=== PATIENT | female | born 1980 | race Caucasian/White ===

== ENCOUNTER → 2020-03-02 17:35 | Outpatient (CLI) | payer BC, SELFPAY ==
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
== END ==
PROVIDERS: Visit Provider Nurse Practitioner Adult Health
DX: M54.6 Pain in thoracic spine (principal); M47.814 Spondylosis without myelopathy or radiculopathy, thoracic region
CPT/HCPCS: 72146

== ENCOUNTER → 2022-02-22 15:24 | Outpatient (CLI) | payer BC, SELFPAY ==
--- NOTE | ~2022-02-22 | MM_ITS ---
EXAMINATION: MM screening [facility] BI w shivani HISTORY: Screening TECHNIQUE: Craniocaudal and mediolateral oblique 3-D tomosynthesis images were obtained and synthetic 2-D images were generated. CAD analysis was submitted and interpreted. COMPARISON: 11/05/2016 BREAST PARENCHYMAL COMPOSITION: There are scattered areas of fibroglandular density. FINDINGS: Right breast asymmetry in the periareolar location is stable. There is no evidence of suspi cious mass, calcification, or architectural distortion to suggest malignancy in either breast. There has been no suspicious interval change. IMPRESSION: 1. No mammographic evidence of malignancy. 2. Recommend routine screening mammography in one year. BI-RADS Category 1: Negative Reviewed, dictated and finalized at location A. INSPECTOR
== END ==
PROVIDERS: PCP Physician Assistant; Visit Provider Physician Assistant
DX: Z12.31 Encounter for screening mammogram for malignant neoplasm of breast (principal)
CPT/HCPCS: 77063; 77067

== ENCOUNTER → 2023-02-11 09:17 | Outpatient (CLI) | payer BC, SELFPAY ==
--- NOTE | ~2023-02-11 | MMUS_ITS ---
EXAMINATION: MM diagnostic do BI w shivani, US breast LT limited HISTORY: Palpable lump at the 9:00 location of the left breast TECHNIQUE: Craniocaudal, mediolateral, and mediolateral oblique 3-D tomosynthesis images of the breas ts were performed and synthetic 2-D images were generated. CAD analysis was submitted and interpreted . High resolution limited left breast ultrasound was performed. COMPARISON: 02/22/2022, 11/05/2016 BREAST PARENCHYMAL COMPOSITION: There are scattered areas of fibroglandular density. FINDINGS: MAMMOGRAPHIC FINDINGS: Right breast: No suspicious mass, calcification, or architectural distortion are identified to sugges t malignancy. There has been no suspicious interval change. Left breast: There is an approximately 1.6 x 1.5 cm round, equal density mass with indistinct margins abutting the skin of the left breast in the region of palpable concern. No suspicious calcification or architectural distortion are identified. ULTRASOUND: There is a 1.8 x 0.8 cm oval, circumscribed, parallel, hypoechoic mass with posterior acoustic enhanc ement, and no internal vascularity, and probable skin tract and the left breast corresponding to the area of palpable concern. IMPRESSION: 1. Probable sebaceous cyst of the left breast corresponding to the area of palpable concern. Recommen d continued clinical follow-up with repeat ultrasound if finding does not resolve after appropriate t herapy. 2. Recommend routine screening mammography in one year. BI-RADS Category 2: Benign finding(s). Reviewed, dictated and finalized at location A. BINDER IMPRESSION: 1. Probable sebaceous cyst of the left breast corresponding to the area of palp able concern. Recommend continued clinical follow-up with repeat ultrasound if finding does not resolve after appropriate therapy. 2. Recommend routine screening mammography in one year. BI-RADS Category 2: Benign finding(s).
== END ==
PROVIDERS: PCP Obstetrics & Gynecology; Visit Provider Obstetrics & Gynecology
DX: N63.25 Unspecified lump in the left breast, overlapping quadrants (principal)
CPT/HCPCS: 76642; 77062; 77066; G0279

== ENCOUNTER → 2023-02-19 16:19 | Outpatient (REF) | payer BC, SELFPAY | LOC: ANHLAB 16:19 | PROVIDERS: PCP Obstetrics & Gynecology; Visit Provider Surgery | DX: L72.0 Epidermal cyst (principal); N63.20 Unspecified lump in the left breast, unspecified quadrant | CPT/HCPCS: 88305 ==

== ENCOUNTER 2023-06-13 07:44 | Outpatient (CLI) | payer BC, SELFPAY ==
--- NOTE | ~2023-06-13 | MR_ITS ---
MRI of the cervical spine Clinical History: Cervical pain Technique: Axial T2-weighted and gradient images, and sagittal T1-weighted, T2-weighted, and STIR magdy ges were acquired. Findings: There is mild reversal normal cervical lordosis. No fracture or subluxation seen. No suspic ious bone marrow signal abnormality seen. At C2-C3, there is no disc bulge or herniation. No spinal canal stenosis, cord compression, or neural foraminal narrowing. At C3-C4, there is no significant disc bulge or herniation. No spinal canal stenosis, cord compressio n, or definite neural foraminal narrowing. There is minimal facet arthropathy. At C4-C5, there is no significant disc bulge or herniation. There is no spinal canal stenosis, cord c ompression, or neural foraminal narrowing. There is minimal facet arthropathy bilaterally. At C5-C6, there is central disc osteophyte complex which minimally flattens the ventral cord. Bilater al neural foramina are preserved. At C6-C7, there is mild disc osteophyte complex which minimally flattens the ventral cord on the left side. Neural foramina are preserved. No abnormal signal seen in the spinal cord. Paravertebral soft tissues are unremarkable. Impression: Mild degenerative spondylosis, most notable at C5-C6 and C6-C7, where there is minimal flattening of the ventral cord. Reviewed, dictated and finalized at [facility]. Impression: Mild degenerative spondylosis, most notable at C5-C6 and C6-C7, where there is minimal flattening of the ventral cord.
== END 2023-06-13 07:45 ==
PROVIDERS: PCP Obstetrics & Gynecology; Visit Provider Chiropractor
DX: M47.892 Other spondylosis, cervical region (principal)
CPT/HCPCS: 72141

== ENCOUNTER 2023-09-18 13:20 | Outpatient (CLI) | payer BC, SELFPAY ==
--- NOTE | ~2023-09-18 | XR_ITS ---
EXAMINATION: XR chest 2V 09/18/2023 13:44 INDICATION: Preprocedural examination PROCEDURE: 2 view chest COMPARISON: No prior studies for comparison. FINDINGS: The lungs are clear. The cardiomediastinal silhouette is within normal limits. There are no pleural effusions. There is no pneumothorax suspected. IMPRESSION: 1: NO ACUTE CARDIOPULMONARY DISEASE. Reviewed, dictated and finalized at location B.
== END 2023-09-18 13:21 ==
LOC: MICIMG 13:22
PROVIDERS: PCP Physician Assistant; Visit Provider Physician Assistant
DX: Z01.818 Encounter for other preprocedural examination (principal)
CPT/HCPCS: 71046

== ENCOUNTER 2024-05-01 08:15 | Emergency (ER) | payer OTHER, SELFPAY ==
--- NOTE | 2024-05-01 08:18 | ED_ITS ---
HPI - General Adult General Chief complaint: Upper Respiratory Infection Stated complaint: RUNNY NOSE/COUGH/FEVER Time Seen by Provider: 05/01/24 08:18 History of Present Illness HPI narrative: 43-year-old female patient presents to the [facility] with complaints of runny nose, congestion, body aches and chills and a fever as high as 102. Patient states her symptoms started about 3 days ago but last night spiked a fever and had some chills. Patient states she has had a cough. Denies any nausea vomiting diarrhea. Denies any abdominal pain. Patient states she has been taking [id number] Mucinex, and cold and flu medication for her symptoms. Patient denies getting a flu shot this year. Related Data Home Medications ?Medication ?Instructions ?Recorded ?Confirmed ?Last Taken ?Type clindamycin HCl 300 mg capsule mg 05/01/24 Unknown History cyclobenzaprine 10 mg tablet mg 05/01/24 Unknown History gabapentin 300 mg capsule mg 05/01/24 Unknown History ibuprofen 800 mg tablet mg 05/01/24 Unknown History Allergies Allergy/AdvReac Type Severity Reaction Status Date / Time zinc Allergy Mild vomiting Verified 05/01/24 08:32 Corticosteroids Allergy Unknown Unknown Verified 05/01/24 08:32 (Glucocorticoids) latex AdvReac Mild Rash Verified 05/01/24 08:32 gluten AdvReac Unknown Unknown Verified 05/01/24 08:32 Milk Containing Products AdvReac Unknown Unknown Verified 05/01/24 08:32 (Dairy) nickel AdvReac Unknown Unknown Verified 05/01/24 08:32 shellfish derived AdvReac Unknown Unknown Verified 05/01/24 08:32 cortizone shot AdvReac Severe Numbness Uncoded 05/01/24 08:32 Review of Systems Review of Systems: CONSTITUTIONAL: Positive fever, chills, and body aches , positive sweats. EYES: Denies visual changes, redness, or discharge. ENT: positive rhinorrhea, congestion, sore throat, denies otalgia. CARDIOVASCULAR: Denies chest pain, palpitations, or edema. RESPIRATORY: positive cough, deniesdyspnea. GASTROINTESTINAL: Denies abdominal pain, nausea, vomiting, or diarrhea. GENITOURINARY: Denies dysuria or hematuria. SKIN: Denies rash or itching. MUSCULOSKELETAL: Denies back pain, joint pain, or myalgia. NEUROLOGIC: positive headache, denies numbness, or weakness. PSYCHIATRIC: Denies anxiety or depression. [facility] Past Medical History Medical History (Updated 05/01/24 @ 09:09 by KRIS Daniels) Headache Ulnar neuropathy at elbow Bilateral carpal tunnel syndrome Family History Family History Father Diabetes mellitus Mother Diabetes mellitus Other Family history of Alzheimer's disease Social History Social History Smoking status: Never smoker Alcohol intake: current Substance use: never Substance use type: does not use Do You Feel Safe in your Home?: Yes Lack of Transportation: No Lack of Food: Never True Current Housing: I Have Housing Concerned About Future Housing: No Difficulty Paying Gas/Electric Bills: No Difficulty Paying for Meds: No Currently Unemployed: No Education: Bachelor's Degree Difficulty w/ Childcare or Family Care: No Comments At the time of my signature I agree with nursing past medical history, surgical, social, and family history. There is no relevant family history pertinent to the presenting complaint. Exam Narrative: GENERAL: Well-appearing, well-nourished, and in no acute distress. HEAD: Normocephalic, atraumatic. EYES: PERRLA and EOMI. ENT: Nares with erythema and edema noted bilaterally, no rhinorrhea or epistaxis. Mucous membranes moist. posterior pharynx with no erythema, tonsillar enlargement, exudates or lesions present. Bilateral TMs do have a tiny bit of fluid noted behind the TM but no erythema, no bulging present. No foreign bodies the canals. NECK: Supple. No lymphadenopathy CHEST: Clear to auscultation. No respiratory distress. HEART: Regular rate and rhythm. No murmur heard. Normal peripheral pulses. ABDOMEN: Soft, nontender, nondistended, normal active bowel sounds. EXTREMITIES: Normal range of motion. No edema. SKIN: Warm, dry, no rash. NEURO: No focal deficits. Alert and oriented x3. Course Course Level of Care: Express Care Visit Reevaluation(s) Reevaluation #1: re-evaluated patient and notified her that her point of care testing today is negative. Discussed with patient she most likely has a virus given the fact that she has been running fevers. Discussed with patient that we will discharge her home with some Tessalon Perles and inhaler to help with the coughing and encourage [id number] Tylenol, Motrin as needed for chills, no fevers and body aches. Discussed with patient lots of rest and fluid and this should pass a couple of days. Patient is aware the plan of care denies any other questions or concerns at this time. Date: 05/01/24 Time: 09:14 Vital Signs Vital signs: Vital Signs Temperature 36.8 C 05/01/24 08:28 Pulse Rate 87 05/01/24 08:28 Respiratory Rate 16 05/01/24 08:28 Blood Pressure 126/80 05/01/24 08:28 Pulse Oximetry 98 05/01/24 08:28 Temperature 36.8 C 05/01/24 08:28 Pulse Rate 87 05/01/24 08:28 Respiratory Rate 16 05/01/24 08:28 Blood Pressure 126/80 05/01/24 08:28 Pulse Oximetry 98 05/01/24 08:28 Vital signs reviewed. Medical Decision Making MDM Narrative Medical decision making narrative: Plan care patient is tested today for influenza and COVID given that she has had high fever. I will reassess her once this has resulted. Differential Diagnosis Differential Diagnosis: Differential diagnosis: Allergic rhinitis, chronic sinusitis, tonsillitis, acute sinusitis, infectious mononucleosis, seasonal influenza, pertussis, diphtheria, meningococcal disease, viral syndrome, viral bronchitis, RSV, COVID- 19 Vital Signs Vital Signs: Vital Signs Temperature 36.8 C 05/01/24 08:28 Pulse Rate 87 05/01/24 08:28 Respiratory Rate 16 05/01/24 08:28 Blood Pressure 126/80 05/01/24 08:28 Pulse Oximetry 98 05/01/24 08:28 Temperature 36.8 C 05/01/24 08:28 Pulse Rate 87 05/01/24 08:28 Respiratory Rate 16 05/01/24 08:28 Blood Pressure 126/80 05/01/24 08:28 Pulse Oximetry 98 05/01/24 08:28 Vital signs reviewed. Critical Care Time Critical Care Time Critical Care Time: No Discharge Plan Discharge Clinical Impression: Viral URI with cough Patient Disposition: Home, Self-Care Condition: Stable Instructions: Antibiotic Form, Viral Syndrome (ED) Additional Instructions: Viral illness may last between 7-12days; antibiotic is NOT recommended at this time. Recommend antihistamine such as Benadryl at night time and Claritin/Zyrtec/Yessy during the day Cough syrup may cause drowsiness; avoid driving or take it at night time. Use inhaler as needed for cough, wheezing, shortness of breath or chest tightness. Also, recommend symptomatic treatment includes: rest, fluids, and increase humidity of the air at home. Recommend Acetaminophen or nonsteroidal anti-inflammatory agents (NSAIDs) as directed in the bottle to reduce fever and/pain/headache. Avoid smoking/second-hand smoke. Limit visits to areas with large crowds. Please schedule a follow-up visit with your personal physician for further evaluation and treatment within 3-5days. Including recheck and discussion of your blood pressure. If your symptoms persist, change or worsen significantly before you can contact your personal physician then please, without delay, go to the emergency department for further evaluation. Patient Language: Frisian Prescriptions: New benzonatate 200 mg capsule 200 mg PO TID PRN (Reason: cough) 10 Days Qty: 30 0RF albuterol sulfate [Ventolin HFA] 90 mcg/actuation HFA aerosol inhaler 2 puff INHALATION .Q4 hours PRN (Reason: cough) Qty: 18 0RF No Action cyclobenzaprine 10 mg tablet clindamycin HCl 300 mg capsule ibuprofen 800 mg tablet gabapentin 300 mg capsule Follow-up/Referrals: UNKNOWN,DOCTOR [Non-Staff] - Time of Disposition: 09:11
[2024-05-01 08:28] VITALS: BP 126/80; PULSE 87; RESP 16; TEMP 36.8; O2SAT 98
[2024-05-01 09:19] LABS: EDCOVIDSCREEN Negative (Negative); EDINFLUASCREEN Negative (Negative); EDINFLUBSCREEN Negative (Negative)
== END 2024-05-01 09:16 | disposition home or self-care (01) ==
PROVIDERS: Emergency Provider Nurse Practitioner Family; PCP Physician Assistant
DX: J06.9 Acute upper respiratory infection, unspecified (principal); Z79.1 Long term (current) use of non-steroidal anti-inflammatories (NSAID); Z20.822 Contact with and (suspected) exposure to COVID-19
CPT/HCPCS: 87426; 87804; 99213; G0463

== ENCOUNTER 2024-07-14 00:13 | Day surgery (SDC) | payer OTHER, SELFPAY ==
[2024-07-09 13:46] VITALS: BMI 44.9
--- NOTE | 2024-07-09 14:00 | PC.NURSE ---
Report to the Outpatient Waiting Room, entrance under the green pavilion located off [facility], at time _0900_ on date _[id number]_. Planned Procedure Time: _1100_.? Time changes happen often and if your time is changed the preop area will call you the afternoon before. - You and your visitor will be asked to self-screen and do not enter if you have any COVID symptoms. Please call surgeon if you need to reschedule. - A mask is optional within the hospital at this time. Patients may have clear liquids (water, carbonated beverages, clear teas, apple juice) until 3 hours prior to surgery with a maximum of 20 ounces. - No food from midnight until time of surgery and no smoking, or chewing tobacco (or any form of nicotine). No chewing gum, candy or mints. Take only the following medications with a SIP of water on the morning of surgery: ___Gabapentin__ DO NOT STOP ANY OF YOUR OTHER PRESCRIPTION MEDICATIONS PRIOR TO SURGERY EXCEPT THE FOLLOWING Hold all vitamins and supplements for 3 days per anesthesiologist. Medications to discontinue per physician Patient stopped taking Ibuprofen in preparation for surgery. Date to take last dose Please no make-up, nail maltese, hairspray, perfume, deodorant, or body powder the day of surgery.? No jewelry (including any body piercings) or valuables the day of surgery, leave them at home.? Please take a shower or bath the night before, or the morning of, surgery with an antibacterial soap.? Wear comfortable, loose fitting clothing. - Jewelry must be removed prior to entering the operating room.? Rings and piercings that are not removed may be cut off. - The hospital will not accept responsibility for valuables.? - Please leave all valuables, including medications, at home the day of surgery. If you are going home after surgery, a licensed driver/refuse collector must drive you home.? - NO public transportation without another adult if you receive anesthesia. - We recommend that an adult stay with you for 24 hours following discharge. - We also recommend that you do not drive, make important decision, drink alcoholic beverages, or take any drugs that were not prescribed by your health care provider for at least 24 hours after your discharge time. Follow any additional instructions given to you from your surgeon. Telephone instructions given to __Rindy___and asked if any additional questions and then verbalized understanding. Patient advised to call surgeon office or pre surgery nurse liaison [phone] if any additional questions.
--- NOTE | 2024-07-09 14:17 | PC.NURSE ---
Report to the Outpatient Waiting Room, entrance under the green pavilion located off [facility], at time _0900_ on date _[id number]_. Planned Procedure Time: _1100_.? Time changes happen often and if your time is changed the preop area will call you the afternoon before. - You and your visitor will be asked to self-screen and do not enter if you have any COVID symptoms. Please call surgeon if you need to reschedule. - A mask is optional within the hospital at this time. May have clear liquids (water, carbonated beverages, clear teas, apple juice) until 3am prior to surgery with a maximum of 20 ounces. Nothing to drink after 3am. - No food from midnight until time of surgery and no smoking, or chewing tobacco (or any form of nicotine). No chewing gum, candy or mints. Take only the following medications with a SIP of water on the morning of surgery: __Gabapentin___ DO NOT STOP ANY OF YOUR OTHER PRESCRIPTION MEDICATIONS PRIOR TO SURGERY EXCEPT THE FOLLOWING Hold all vitamins and supplements for 3 days per anesthesiologist. Medications to discontinue per physician Patient is holding Ibuprofen in preparation for surgery. Date to take last dose Please no make-up, nail brazilian, hairspray, perfume, deodorant, or body powder the day of surgery.? No jewelry (including any body piercings) or valuables the day of surgery, leave them at home.? Please take a shower or bath the night before, or the morning of, surgery with an antibacterial soap.? Wear comfortable, loose fitting clothing. - Jewelry must be removed prior to entering the operating room.? Rings and piercings that are not removed may be cut off. - The hospital will not accept responsibility for valuables.? - Please leave all valuables, including medications, at home the day of surgery. If you are going home after surgery, a licensed bicycle taxi driver must drive you home.? - NO public transportation without another adult if you receive anesthesia. - We recommend that an adult stay with you for 24 hours following discharge. - We also recommend that you do not drive, make important decision, drink alcoholic beverages, or take any drugs that were not prescribed by your health care provider for at least 24 hours after your discharge time. Follow any additional instructions given to you from your surgeon. Telephone instructions given to __Rindy___and asked if any additional questions and then verbalized understanding. Patient advised to call surgeon office or pre surgery nurse liaison [phone] if any additional questions.
--- OUTSIDE RECORDS SUMMARY | 2024-07-14 00:16 | XMS_ITS | Continuity of Care Document ---
Author Organization [facility] Address [address] [place] [address] Phone Care Team Providers Care Brush Maker Name Role Phone Cedrick JOHNSON, Juanita Unavailable Unavailabl e Allergies, Adverse Reactions, Alerts Substance Reaction Status Criticality DYE Active No Information lidocaine Active No Information Corticosteroids (Glucocorticoids) Active No Information Medications Medication Instructions Dosage Effective Dates (start - stop) Status Comments clobetasol 0.05 % topical cream apply by topical route 2 times every day a thin layer to the affected area(s) 0.00 - Active ibuprofen 800 mg tablet take 1 tablet by oral route 3 times every day with food 800 MG - Active PHENTERMINE HCL (unknown strength) take 1 capsule by oral route every day before breakfast Not Available - Active TOPIRAMATE (unknown strength) take 2 tablet by oral route 2 times every day in the morning and evening Not Available - Active GABAPENTIN (unknown strength) take 3 capsule by oral route 3 times every day Not Available - Active CYCLOBENZAPRINE HCL (unknown strength) take 1 tablet by oral route 3 times every day Not Available - Active Procedures Procedure Date OFFICE/OUTPATIENT VISIT EST OFFICE/OUTPATIENT VISIT EST OFFICE/OUTPATIENT VISIT NEW Advance Directives Directive Yes / No Effective Date File Name No Information Encounters Encounter Description Practice Location Reason(s) For Visit Diagnoses Date Provider Providers Copied on Encounter OFFICE/OUTPA TIENT VISIT EST [facility] , [address], [place], [address], [place] tel:[phone] [facility] Follow up (chief complaint) Allergic contact dermatitis due to metalsSensitiv e skin 4 Cedrick Grant. [address], [place], [place], [id number]. tel:[phone] OFFICE/OUTPA TIENT VISIT EST [facility] , [address], [place], [address], [place] tel:[phone] [facility] patch test reading (chief complaint) Allergic contact dermatitis due to metals 4 Cedrickpeter Cama. [address], [place], [place], [id number]. tel:[phone] OFFICE/OUTPA TIENT VISIT NEW [facility] , [address], [place], [address], [place] tel:[phone] [facility] allergy evaluation (chief complaint) Allergic contact dermatitis due to metalsSensitiv e skinAdverse effect of anesthetic, initial encounter 4 Cedrickpeter Cama. [address], [place], [place], [id number]. tel:[phone] Family History Family Member Type Diagnosis Age At Onset No Information Payers Payer name Insurance type Covered democrat ID Authoriza timerlyn(s) Blue Access PPO E2 OT [id number] Social History Type Description Quantity Date Captured Comments Alcohol Use Details Unknown Caffeine Use Details Unknown Tobacco Use Status No Information Smoking Status No Information Sex Female Chief Complaint And Reason For Visit From encounter dated '09/29/2023 08:15'. Follow up (chief complaint). Description: Patient had a patch test placed for metals. The first reading 48 hours later was completely normal. She then took pictures of her back on 25 September and sent me. Some pictures. And it looked as if the nickel was positive. Today is the final [facility]. [address]. Under the left scapula is still positive. She has sent me pictures and that area seems to be very sensitive. Reason For Referral Reason For Referral No Information History Of Present Illness Encounter Date Complaint History Of Prese nt Illness Follow up Patient had a pa tch test placed for metals. The first reading 48 hours later was completely normal. She then took pictures of her back on 25 September and sent me. Some pictures. And it looked as if the nickel was positive. Today is the final [facility]. Number [facility]. Under the left scapula is still positive. She has sent me pictures and that area seems to be very sensitive. patch test reading Patient is he re for patch test removal and reading. Patch test for eight different metals and. 2 bone cements placed on her back on 21 September.She tells me as soon as it was placed she had stabbing pains in her back, and she felt as if somebody was pushing the area of her patch test. allergy evaluation 42 year-old p atient with a complicated medical history always has had sensitive skin. She also has a lot of food allergy/intolerance, which, according to her flares of her eczema. She stays away from Dairy and gluten.She also sunburns very easily. Patient has a list of multiple allergies, she has cervical pain and on October 14 plans to get neck surgery. She is worried about metal Allergy.She used to color her hair but gave up coloring her hair just because she was tired not because it caused any problems.Unable to wear any jewelry, including 10k Gold because it would irritate the skin. She can wear pure goldShe hardly wears jewelry or makeup on.Patient lists a lot of allergies, including Cortizone, corticosteroids , triamcinolone, dexamethasone,dye, lidocaine, combination of lidocaine and BupivacaineAccording to her, she started having a burning sensation in her lips after her dermatology procedures with local anesthetic. Once she had a facet joint injection, followed by anaphylaxis, she describes the anaphylaxis as left side of the body was burning. She was in pain and did not feel sensation. None of these seem like true allergies. She has a lot of back pain. she cannot tell me what was used for future surgery. Recently in 2023 a mass on her chest wall was removed. She had wisdom tooth extraction, but cannot tell me what local anesthetic was used. Functional Status Date Functional Assessmen t No Information Instructions Date Instruction Additional Infor nii skin care includes- non drying soap, no body wash, a daily good mositurizer, keeping nails short, luke warm showers and bath , control itching . Related to Sensitive skin Avoid any oral stero ids and topical steroids while the patch test is on your back. Antihistamines can be continued as long as the patch test is in place; do not wet the area, if the patch falls off, do not re-apply the patch test. Related to Allergic contact dermatitis due to metals Assessments Type Assessment Date assessment Allergic contact dermatitis due to metals assessment Sensitive skin impression Patient had eight di fferent metals placed on her back that included gold, potassium, dichromate, cobalt, titanium, Vanadium,molybdenum and zirconium. She is extremely positive with the Four plus nickel. This goes along with her medical history of being allergic to nickel and cheap jewelry. She also had two different bone cement.placed which was completely negative. Patient has given me the contact for her surgeon.Dr rodas fax number is [phone].She will take the results to Doctor Rosanne for further discussion. impression she is allergic to m ultiple steroid preparations but has not used clobetasol, called in , use o raised positive nickel test BID for 2 weeks Patient Care Teams Name Effective Dates (start - stop) Status Members No Information
--- OUTSIDE RECORDS SUMMARY | 2024-07-14 00:16 | XMS_ITS | Clinical Summary ---
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
--- OUTSIDE RECORDS SUMMARY | 2024-07-14 00:19 | XMS_ITS | Encounter Summary ---
Author Organization [facility] Address [address] [place] [address] Care Team Providers Care Calciner Operator Helper Name Role Phone Keyon Silva Primary Care Provider [phone] Reason for Referral * Consultation (Routine) - Closed Specialty Diagnoses / Procedures Referred By Contac t Referred To Contact Dermatology Diagnoses Lip injury, subsequent encounter Non-healing non-surgical wound Cellulitis of lip Keyon Silva PA Phone: tel: fax: Oseas Turcios MD [address] [place] [address] [place] [address] Phone: tel: fax: Referral ID Status Reason Start Date Expiration Date V isits Requested Visits Authorized [id number] Closed Specialty Services Required 08/07/2023 09/05/2024 1 1 Question Answer Please select the performing region: External Order [171] To provider: OSEAS TURCIOS [[id number]] # of visits: 1 Encounter Details Date Type Department Care Team (Late st Contact Info) Description 08/07/2023 Patient Message [facility] Primary Care [facility] [address] [place] [phone] Keyon Silva PA [address] [place] [address] Plastic surgeons for lip Social History Tobacco Use Types Packs/Day Years Used Date Smoking Tobacco: Never Smokeless Tobacco: Never AUDIT-C Answer Date Recorded Q1: How often do you have a drink containing alc ohol? Monthly or less 08/01/2023 Q2: How many drinks containi ng alcohol do you have on a typical day when you are drinking? 1 or 2 08/01/2023 Q3: How often do you have si x or more drinks on one occasion? 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 Gender Identity Not on file Sexual Orientation Not on file documented as of this encounter Miscellaneous Notes * Telephone Encounter - Stephanie Whittaker MA - 08/07/2023 11:16 AM CDT See message documented in this encounter Plan of Treatment Scheduled Referrals Name Type Priority Associated Diagnoses Order Schedule Ambulatory referral to Dermatology Outpatient Referral Routine Lip injury, subsequent encounter Non-healing non-surgical wound Cellulitis of lip Expected: 08/21/2023 (Approximate), Expires: 08/06/2024 documented as of this encounter Visit Diagnoses Diagnosis Lip injury, subsequent encounter- Primary Non-healing non-surgical wound Open wound(s) (multiple) of unspecified site(s), complicated Cellulitis of lip Diseases of lips documented in this encounter Care Teams Calciner Operator Helper Relationship Specialty Start Date End Date Keyon Silva PA PCP - General Family Medicine 11/21/21 documented as of this encounter
--- OUTSIDE RECORDS SUMMARY | 2024-07-14 00:19 | XMS_ITS | Clinical Summary ---
Author Organization [address] Address [address] [place] [phone] Care Team Providers Care Centrifugal Drier Operator Name Role Phone Keyon Silva Primary Care Provider [phone] Allergies Active Allergy Reactions Criticality Noted Date Comments Bupivacaine-Lidocaine Unknown 08/04/2023 Corticosteroids (Glucocorticoids) Anaphylaxis High 05/02/2023 Cortisone Joint pain,Muscle pain,Other (See comments) Medium 11/01/2022 Dairy - All Forms And Ingredients Diarrhea,Nausea & Vomiting,Stomach upset,Swelling Medium 11/21/2021 Dexamethasone Unknown 08/04/2023 Dye Rash Medium 10/29/2016 Gluten Stomach upset,Swelling Medium 11/21/2021 Latex Rash Medium 11/26/2010 Lidocaine Unknown 08/04/2023 Shellfish Derived Unknown 11/21/2021 Triamcinolone Unknown 08/04/2023 Zinc Rash Medium 01/16/2009 Medications mupirocin (BACTROBAN) 2 % ointment Apply topically 3 (three) times a day 22 g 4 Active cyclobenzaprine (FLEXERIL) 10 mg tablet Take 1 tablet (10 mg total) by mouth 3 (three) times a day as needed for muscle spasms 30 tablet 4 Active ibuprofen (ADVIL,MOTRIN) 800 mg tablet Take 1 tablet (800 mg total) by mouth 3 (three) times a day with meals 90 tablet 4 Active topiramate (TOPAMAX) 25 mg tabletIndicatio ns:Abnormal weight gain,BMI 40.0-44.9, adult (HCC) Take 1 tablet by mouth twice daily 60 tablet 4 Active Active Problems Problem Noted Date Diagnosed Date Class 2 obesity due to exces s calories without serious comorbidity with body mass index (BMI) of 37.0 to 37.9 in adult 08/01/2023 Abnormal weight gain 01/02/2022 Assessment & Plan (07/29/2023 6:31 AM CDT): Patient is being followed by Dr. Fermin in his taking current medication Topamax and phentermine Class 3 severe obesity due t o excess calories without serious comorbidity with body mass index (BMI) of 45.0 to 49.9 in adult 11/21/2021 Assessment & Plan (07/29/2023 6:31 AM CDT): Continue diet and exercise Assessment & Plan (11/25/2022 1:57 PM CDT): Continue diet and exercise Routine general medical exam ination at a health care facility 11/20/2021 Assessment & Plan (11/25/2022 1:58 PM CDT): HEALTHCARE MAINTENANCE updated Assessment & Plan (11/21/2021 1:25 PM CDT): Healthcare maintenance updated, mammogram ordered, immunizations discussed Neck pain 04/07/2018 Assessment & Plan (07/29/2023 6:30 AM CDT): This is stable chronic condition we will continue to follow Abnormal cytological finding s in specimens from oth org/tiss 01/20/2011 Overview (01/31/2023): Nonspecific abnormal papanicolaou smear of cervix, unsatisfactory smear;Recorded Elsewhere: No Location: [facility] Source: EHR Chronic: N Practice ID: [id number] Billable Time: 09:45:00 AM Migraines Assessment & Plan (07/29/2023 6:30 AM CDT): This is a stable chronic condition, Continue treatment Assessment & Plan (11/25/2022 1:57 PM CDT): Continue treatment Assessment & Plan (11/21/2021 1:25 PM CDT): These appeared to be well controlled with p.r.n. Motrin Immunizations Immunization Administration Dates Next Due Influenza, Quadrivalent, Spl it, Preservative Free, Intramuscular 11/25/2018,11/19/2017,11/14/2016 Influenza, Trivalent, IM (MDV) 02/23/2012 Influenza, Trivalent, Preser vative Free, Intramuscular 10/15/2015 Influenza, Unspecified 11/25/2022(Deferr ed: Patient Refused),11/16/2022(Deferred: Patient decision),05/10/2022(Deferred: Patient Refused),11/21/2020(Deferred: Patient Refused) Medical History Medical History Date Comments Migraines Menstrual problem Abnormal weight gain Open lip wound Family History Medical History Relation Name Comments No Known Problems Brother No Known Problems Daughter Diabetes Father Tony Doran Diabetes Mother Tita Pierre Alzheimer's disease Paternal Grandfather Jay Young ook Relation Name Status Comments Brother Alive Daughter Alive Father Tony Doran Alive Mother Tita Pierre Alive Paternal Grandfather Jay Doran Social History Tobacco Use Types Packs/Day Years Used Date Smoking Tobacco: Never Smokeless Tobacco: Never Tobacco Cessation:Counseling Given: Not Answered AUDIT-C Answer Date Recorded Q1: How often [...] on file 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 Gender Identity Not on file Sexual Orientation Not on file Obstetrics History Last Filed Vital Signs Vital Sign Reading Time Taken Comments Blood Pressure 117/76 08/01/2023 9:35 AM CDT Pulse 88 08/01/2023 9:35 AM CDT Temperature 36.6 C (97.9 F) 08/01/2023 9:35 AM CDT Respiratory Rate 18 08/01/2023 9:35 AM CDT Oxygen Saturation 99% 08/01/2023 9:35 AM CDT Inhaled Oxygen Concentration - - Weight 109.5 kg (241 lb 4.8 oz) 08/01/2023 9:35 AM CDT Height 165.1 cm (5' 5) 08/01/2023 9:35 AM CDT Body Mass Index 40.15 08/01/2023 9:35 AM CDT Plan of Treatment Health Maintenance Due Date Last Done Comments Cervical Cancer Screening 1981 Hepatitis C Screening 1981 DTaP/Tdap/Td Vaccine (1 - Tdap) 1992 Hepatitis B Screening 11/09/1999 Depression Screening 11/26/2023 11/25/2022, 11/01/2022, 11/21/2021 Regular Well Visit/Exam 18-64 11/26/2023 11/25/2022, 11/21/2021 Breast Cancer Screening-Mammogram 02/12/2024 02/11/2023 Influenza Vaccine (Season Ended) 2024 11/25/2018, 11/19/2017, 11/14/2016, Additional history exists HPV Vaccines Aged Out No longer eligi ble based on patient's age to complete this topic Pneumococcal vaccine <65 Aged Out No longer eligible based on patient's age to complete this topic Varicella Vaccines Discontinued Insurance [employer] ACCESS CHOICE BLUE ACCESS OOS Care Teams Centrifugal Drier Operator Relationship Specialty Start Date End Date Keyon Silva PA PCP - General Family Medicine 11/21/21
--- OUTSIDE RECORDS SUMMARY | 2024-07-14 00:19 | XMS_ITS | Referral Summary ---
Author Organization [address] Address [address] [place] [phone] Care Team Providers Care Contract Associate Name Role Phone Keyon Silva Primary Care Provider [phone] Allergies Active Allergy Reactions Criticality Noted Date [...] of cervix, unsatisfactory smear;Recorded Elsewhere: No Location: [facility] Source: EHR Chronic: N Practice ID: [id number] [...] Refused),11/16/2022(Deferred: Patient decision),05/10/2022(Deferred: Patient Refused),11/21/2020(Deferred: Patient Refused) Social History Tobacco Use Types Packs/Day Years [...] on file 

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
--- OUTSIDE RECORDS SUMMARY | 2024-07-14 00:19 | XMS_ITS | Clinical Summary ---
Author Organization [facility] Address [address] [place] [address] Care Team Providers Care Bronze Plater Name Role Phone Unavailable Primary Care Provider Unavailabl e Source Comments [facility],non-owned Affiliates and Associated Physician Practices is amultiple site organization consisting of ambulatory clinics and hospital sitesin [place], [place], [place] and [place]. This disclosure is being madepursuant to the Care Everywhere program and may not contain all information available regarding this patient. Last updated 17.[facility] [employer] Allergies Active Allergy Reactions Criticality Noted Date Comments Latex Rash Medium 01/02/2019 Zinc Rash 01/16/2009 Medications * Be aware that medications may not be up to date on this document. Alwaysverify current medications with the patient. 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 Gender Identity Not on file Sexual Orientation Not on file Last Filed Vital Signs Vital Sign Reading Time Taken Comments Blood Pressure 126/80 01/02/2019 11:37 AM TRACK LAYING EQUIPMENT OPERATOR Pulse 97 01/02/2019 11:37 AM TRACK LAYING EQUIPMENT OPERATOR Temperature 37.1 C (98.7 F) 01/02/2019 11:37 AM TRACK LAYING EQUIPMENT OPERATOR Respiratory Rate 16 01/02/2019 11:37 AM TRACK LAYING EQUIPMENT OPERATOR Oxygen Saturation 96% 01/02/2019 11:37 AM TRACK LAYING EQUIPMENT OPERATOR Inhaled Oxygen Concentration - - Weight 108.9 kg (240 lb) 01/02/2019 11:37 AM TRACK LAYING EQUIPMENT OPERATOR Height 167.6 cm (5' 6) 01/02/2019 11:37 AM TRACK LAYING EQUIPMENT OPERATOR Body Mass Index 38.74 01/02/2019 11:37 AM TRACK LAYING EQUIPMENT OPERATOR Plan of Treatment Health Maintenance Due Date Last Done Comments LIPID TESTING 1981 MAMMOGRAM 1981 PAP SMEAR 1981 HIV SCREENING 1996 HEPATITIS C SCREENING 11/04/1999 DTAP/TDAP/TD VACCINES (1 - Tdap) 2000 HEPATITIS B VACCINE (1 of 3 - 19+ 3-dose series) 2000 COVID-19 VACCINE (1 - 2023-2 5 season) 2023 DEPRESSION SCREENING 02/11/2024 INFLUENZA VACCINE (Season Ended) 2024 11/20/19 18 ZOSTER VACCINE (1 of 2) 11/09/2031 HIB VACCINE Aged Out No longer eligi ble based on patient's age to complete this topic HPV VACCINE Aged Out No longer eligi ble based on patient's age to complete this topic MENINGOCOCCAL (Group B) VACC INE SHARED DECISION-MAKING Aged Out No longer eligibl e based on patient's age to complete this topic MENINGOCOCCAL GROUPS A/C/Y/W VACCINE Aged Out No longer eligible b ased on patient's age to complete this topic PNEUMOCOCCAL VACCINE Aged Out No long er eligible based on patient's age to complete this topic Insurance [facility] SELF PAY NO INSURANCE Member Subscriber Plan / Payer (Ef fective for All Dates) Name:Jocelyne Chapinlionel Member ID:Not on file Relation to Subscriber:Not on file Name:ALAN CHAPIN Subscriber ID:Not on file (Home) Address: [address] [place] [address] Payer ID:Not on file Group ID:Not on file Type:Self Pay Address: [place], [place]
--- OUTSIDE RECORDS SUMMARY | 2024-07-14 00:19 | XMS_ITS | Data Portability ---
Author Organization [facility] [place] Address [address] [place] [address] Care Team Providers Care Ic Design Manager Name Role Phone RENZO CAMACHO Primary Care Provider Assessment Encounter Date Assessment Date Assessment LastModified by Organization Details LastModified Time 07/19/2022 07/19/2022 Annual gynecological exam performed. Patient will come back in a year unless there are new symptoms. Not available 07/19/2022 13:47:17 Plan of Treatment Reminders Order Date Submit Date Provider Last Modified By Organization Details Last Modified Time Details Appointments None recorded. Lab None recorded. Referral None recorded. Procedures None recorded. Surgeries None recorded. Imaging US, pelvis 2022 [address], [address], [place], [address], 22:05:35 US, transvagina l [address], [address], [place], [address], 22:05:35 MAMMO, screening, bilateral 2022 023 WILEY [facility], [address], [place] [address], [place], [address], 05:01:12 US, pelvis, complete 2022 023 [email or web address] [facility], [address], [place], [address], 4 17:17:40 Medication Orders None recorded. Patient TargetsNo targets recorded. Patient InstructionsNo instructions recorded. Reason for Referral None Reported. 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 Elect trevor julian eneida d by Radha Magaña on 2022 at 12:19 PM ----- ----- ----- ----- ----- ----- ----- ----- ----- ----- ----- ----- ----- ----- ----- ----- ----- ---- HPV RESUL TS: HPV mRNA E6/E7 : No HPV mRNA Detec kirill NOTE: This high risk HPV mRNA assay detec ts fourt een high- risk HPV types (16, 18, 31, 33, 35, 39, 45, 51, 52, 56, 58, 59, 66, 68) witho ut diffe renti ation . COMME NT: This speci men was revie wed by a Cytot echno logis t and/o r Patho logis t (as indic ated in this repor t) after evalu ation using the Thinp rep Imagi ng Syste m. CLINI TRENT INFOR MATIO N: Menst rual Statu s: LMP (if appli cable ): Clini trent Histo ry/Pr eviou s Pap: Type of Neopl estefania (if appli cable ): Signi fican t Clini trent Findi ngs: Other Histo ry: Hormo garcia (if appli cable ): PAP EDUCA WARREN L NOTE: The Pap Test is a scree al test with an inher ent false negat abel rate. Liqui d-bas ed sampl ing may decre ase, but will not elimi johnny, false negat abel resul ts. A negat abel resul t does not precl ude the prese nce and/o r devel opmen t of disea se, since the prese nce of abnor mal cells in the sampl e depen ds on the locat ion of the lesio n and sampl ing techn ique. Ekaterina nued regul ar scree al is the best metho d of cance r preve ntion . If repor kirill cytol ogic findi ng do not corre late with physi trent and/o r histo rical findi ngs, furth er inves tigat ion is recom kwaku d, as clini mary phelan nted. Not Available [facility] (Lab) [address], [place], [address], 07/24/2022 13:21:45 07/27/19 23 07/26/2022 US, pelvi s No observ ation record ed. [email or web address] [place] [address], [place], [address], 07/26/2022 11:03:28 07/27/19 23 07/26/2022 US, trans naun al No observ ation record ed. [email or web address] [place] [address], [place], [address], 07/26/2022 11:03:19 07/27/19 23 07/26/2022 US, pelvi s No observ ation record ed. [email or web address] [facility] [address], [place], [address], 08/01/2022 16:30:48 02/11/19 24 02/11/2023 MAMMO , scree al, bilat eral No observ ation record ed. WILEY [facility] [address], [place], [address], 02/12/2023 20:52:27 06/13/19 24 06/13/2023 MRI, cervi trent spine , w/o contr ast No observ ation record ed. [email or web address] [facility] [address], [place], [address], 07/08/2023 15:10:58 06/13/19 24 06/13/2023 MRI, cervi trent spine , w/o contr ast No observ ation record ed. [email or web address] [facility] [address], [place], [address], 07/08/2023 15:10:32 Result Notes None recorded. Problems Name Problem SNOMED Code Status Onset Date Resolution Date Notes Provider Name and Address Organization Details Recorded Time Cytologi c finding 313107762 Completed 201012/04/2011 Nonspeci fic abnormal papanico laou smear of cervix, unsatisf actory smear;Re corded Elsewher e: No Locat ion: [facility] S ource: EHR Unstacker mary: N Isidroti ce ID: 0001 Garland lable Time: 09:45:00 AM Not Available [facility] 16:00:58 Speciali zed medical examinat ion Completed 201012/04/2011 Gynecolo gical Examinat ion;Garrett rded Elsewher e: No Locat ion: [facility] S ource: EHR Unstacker mary: N Practi ce ID: 0001 Garland lable Time: 02:00:00 PM Sulma Chávez [facility] 2 09:43:30 Problem Notes None recorded. Procedures Surgical History Date Name Laterality Status Provider Name and Address Organization Details Recorded Time 08/10/19 23 Removal of Foreign Body completed Shanice Fenton TY- [address], [place], [address], [facility] 08/09/2022 12:31:01 07/20/19 23 Date of Last Pap Smear completed Rebecca Barton [facility] 08/09/2022 10:11:33 02/10/19 13 termination of completed Sulma Chávez [facility] 11/05/2021 14:29:00 02/10/19 08 biopsy of liver completed Sulma Chávez [facility] 11/05/2021 14:28:46 Imaging Results None recorded. Procedure Notes None recorded. Medical Equipment None Reported. Allergies Allergen ID Allergen Name Allergen Category Reaction Reaction Severity Criticality Documentation Date Start Date Code Code System Note Provider Name and Address Organization Details Recorded Time 66442 latex environme nt,medica tion Not available Not available Not available 01/28/2020 68809 91 RxNorm Comme nt: [facility]at [facility]; Not Available [facility] 0 14:20:38 79867 zinc environme nt,medica tion Not available Not available Not available 01/28/2020 45191 RxNorm Comme nt: Locat [facility]: [facility]; Not Available [facility] 0 14:20:38 35969 shellfish derived food,medi cation Not available Not available Not available 06/29/2021 18275 DONNA Shafer [facility] 2 16:13:05 88069 wheat gluten extract food hives Not available high 07/19/2022 25392 81 RxNorm Shanice hoskins TY- [address], [place], [address], [facility] 3 13:54:44 71393 Milk (substanc e) food,medi cation vomiting severe high 07/19/[address], [facility]- [address], [place], [address], [facility] 3 13:55:04 Medications Name Sig Start Date Stop Date Status Note LastModified by Organization Details LastModified Time cyclobenz aprine 10 mg tablet TAKE 1 TABLET BY MOUTH ONCE DAILY AT NIGHT AT BEDTIME 07/19 completed Not Available Not Available Not Available albuterol sulfate 2.5 mg/3 mL (0.083 %) solution for nebulizat ion USE 1 VIAL IN NEBULIZE R EVERY 4 HOURS NEEDED FOR COUGH AND SHORTNES S OF BREATH 07/19 completed Not Available Not Available Not Available azithromy max 250 mg tablet TAKE 2 TABLETS BY MOUTH ON DAY 1, AND THEN TAKE 1 TABLET BY MOUTH ONCE A DAY ON DAY 2 THROUGH DAY 5 07/19 completed Not Available Not Available Not Available ibuprofen 800 mg tablet TAKE 1 TABLET BY MOUTH THREE TIMES DAILY NEEDED 01/21 completed Not Available Not Available Not Available meloxicam 15 mg tablet TAKE 1 TABLET BY MOUTH ONCE DAILY active Not Available Not Available No t Available prednison e 20 mg tablet TAKE 3 TABLETS BY MOUTH ONCE DAILY FOR 5 DAYS 07/19 completed Not Available Not Available Not Available topiramat e 25 mg tablet TAKE 1 TABLET BY MOUTH TWICE DAILY active Not Available Not Available No t Available phentermi ne 37.5 mg tablet TAKE 1 TABLET BY MOUTH ONCE DAILY BEFORE BREAKFAS T active Not Available Not Available No t Available benzonata te 100 mg capsule TAKE 1 CAPSULE BY MOUTH EVERY 8 HOURS NEEDED 07/19 completed Not Available Not Available Not Available Magtab 84 mg tablet,ex tended release 07/19 completed Prescrib ed Cuco e: Yes Loca tion: Cassandra arroyo [facility] M odify By: [email or web address] z Encoun ter DateTime : 10/30/19 17 02:45:00 PM Not Available Not Available Not Available codeine 10 mg-guaife nesin 100 mg/5 mL oral liquid TAKE 5 ML BY MOUTH EVERY 6 TO 8 HOURS NEEDED 07/19 completed Not Available Not Available Not Available albuterol sulfate HFA 90 mcg/actua tion aerosol inhaler INHALE 2 PUFFS BY MOUTH EVERY 4 HOURS NEEDED 07/19 completed Not Available Not Available Not Available Vitamin D2 1,250 mcg (50,000 unit) capsule take 1 capsule by oral route every week 07/19 completed Prescrib ed Elsewher e: No Locat ion: [facility] odify By: nemo brito DateTime : 11/06/19 17 08:45:27 AM Not Available Not Available Not Available Светланаamneda 07/19 completed Not Available Not Available Not Available Vitafol-O ne 29 mg iron-1 mg-200 mg capsule 12/01 completed Prescrib ed Elsewher e: Yes Loca tion: [facility] odify By: toñito pena DateTime : 11/08/19 11 09:51:22 PM Not Available Not Available Not Available Vitals Date Recorded Body height Body mass index (BMI) Body weight Systolic blood pressure Diastolic blood pressure Provider Name and Address Organization Details Last Updated DateTime 02/12/2023 167.64 cm 36.2 kg/m2 788083.6 9 g 134 mm[Hg] 80 mm[Hg] Melinda Shafer [facility] 4 17:26:04 Date Recorded Body height Body mass index (BMI) Body weight Systolic blood pressure Diastolic blood pressure Provider Name and Address Organization Details Last Updated DateTime 07/19/2022 167.64 cm 35.3 kg/m2 41172.73 g 138 mm[Hg] 81 mm[Hg] [facility] 3 13:47:39 Date Recorded Body height Body mass index (BMI) Body weight Systolic blood pressure Diastolic blood pressure Provider Name and Address Organization Details Last Updated DateTime 08/09/2022 167.64 cm 35.5 kg/m2 55370.32 g 120 mm[Hg] 74 mm[Hg] Rebecca Barton [facility] 3 10:10:13 Date Recorded Body height Body mass index (BMI) Body weight Systolic blood pressure Diastolic blood pressure Provider Name and Address Organization Details Last Updated DateTime 01/21/2023 167.64 cm 36.2 kg/m2 802220.6 9 g 142 mm[Hg] 79 mm[Hg] Sulma Chávez [facility] 3 17:14:44 Social History Question Answer Notes LastModified by Organizat ion Details LastModified Time Tobacco Smoking Status Former Smoker Natalia acosta, [facility] 02/12/2023 17:13:22 Do You Have An Advance Directive? No Information not available 07/16/2021 Are You Blind Or Do You Have Difficulty Seeing? No Information not available 07/16/2021 What Is Your Level Of Caffeine Consumption? Moderate Information not available 08/09/2022 How Much Tobacco Do You Chew? None Information not available 08/09/2022 In The 14 Days Before Symptom Onset, Have You Had Close Contact With A Laboratory-confir med COVID-19 While That Case Was Ill? No [email or web address] Information not available 07/16/2021 In The 14 Days Before Symptom Onset, Have You Had Close Contact With A Person Who Is Under Investigation For COVID-19 While That Person Was Ill? No [email or web address] Information not available 07/16/2021 Have You Been To An Area Known To Be High Risk For COVID-19? No [email or web address] Information not available 07/16/2021 Are You Deaf Or Do You Have Serious Difficulty Hearing? No [email or web address] Information not available 07/16/2021 What Type Of Diet Are You Following? GLUTENFREE [email or web address] Information not available 07/16/2021 What Is The Highest Grade Or Level Of School You Have Completed Or The Highest Degree You Have Received? [id number] [email or web address] Information not available 07/16/2021 Are There Any Guns Present In Your Home? No Information not available 07/16/2021 Do You Use Protection During Sex? No [email or web address] Information not available 07/16/2021 Do You Use Your Seat Belt Or Car Seat Routinely? Yes [email or web address] Information not available 07/16/2021 Do You Have Smoke And Carbon Monoxide Detectors In Your Home? Yes [email or web address] Information not available 07/16/2021 How Much Tobacco Do You Smoke? No [email or web address] Information not available 07/16/2021 Do You Use Sunscreen Routinely? Yes [email or web address] Information not available 07/16/2021 Has Tobacco Cessation Counseling Been Provided? No [email or web address] Information not available 02/12/2023 Have You Used IV Drugs? No [email or web address] Information not available 07/16/2021 Do You Have Difficulty Walking Or Climbing Stairs? No [email or web address] Information not available 02/12/2023 Sex: Unknown Functional Status Question Answer Note LastModified by Organizat ion Details LastModified Time Do you use any illicit or recreational drugs? No [email or web address] Information not available 07/16/2021 Do you or have you ever used any other forms of tobacco or nicotine? No [email or web address] Information not available 02/12/2023 What is your level of alcohol consumption? Occasional Information not available 08/09/2022 Are you able to walk? YESWOREST [email or web address] Information not available 07/16/2021 Are you able to care for yourself? 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 No [email or web address] Information not available 02/12/2023 What is your exercise level? Occasional [email or web address] Information not available 07/16/2021 Mental Status Question Answer Note LastModified by Organization D etails LastModified Time Do you feel stressed (tense, restless, nervous, or anxious, or unable to sleep at night)? [id number] Information not available 08/09/2022 Family History Relationship Description Onset Age of this Age Resolved Age Notes LastModified by Organization Details LastModified Time Father Diabetes mellitus [email or web address] Not available 01/21 17:15:14 Mother Diabetes mellitus [email or web address] Not available 01/21 17:15:14 Mother Hypoglycemia [email or web address] Not avai lable 02/12/2023 17:13:22 Maternal Uncle Hypoglycemia [email or web address] Not available 04/2023 17:13:22 Maternal Grandmother Hypoglycemia Not available 02/12/2023 17:13:22 Paternal Grandfather Alzheimer's disease [email or web address] Not available 2023 17:13:22 Medical History Condition Response Allergies (Food, seasonal, environmental ) Y Other Y Breast Cancer N Drug/Latex Allergies/Reactions Y Blood Transfusion N Dermatologic Disorders N Lung Disease N Defects or Inherited Disease N Breast Problem Y Gestational Diabetes Y Hematologic disorders N Anesthesia Complications N History of STI N Deep Vein Thrombosis N Polycystic ovary syndrome N Anxiety Disorder N Autoimmune disease Y Arthritis N Infertility N Polyps N Acid Reflux (GERD) N History of abnormal pap N Cancer N Stroke N Varicosities N Neurologic/Epilepsy N Endometriosis N High Cholesterol N Headaches Y Fibromyalgia N Kidney Disease N Heart Problems N Kidney or Bladder Problems N Thyroid Problems N GI Problems Y Eating Disorder N Anemia Y Art (IVF or FET) N Psychiatric Illness N Ovarian Cancer N Diabetes Y Pulmonary (TB, Asthma) N Hepatitis/Liver Disease Y No Past Medical History N Eczema Y Urinary Tract Infection N Abuse/Domestic Violence N Asthma N Trauma/Violence N Depression/ depression N Heart Disease N Pre-Eclampsia N Hypertension N Osteoporosis N Thrombophilias N Gynecological History Statement/Question Response Date of Last Mammogram Date of LMP 01/16/2023 N On BCP's at Conception? N STIs/STDs N Was last menstrual period normal Y HPV Vaccine N Duration of Flow (days) 6 Current Control Method None Age at First Child 28 Are cycles usually normal Y Frequency of Cycle (Q days) 29 Sexually Active? Y Other Menses Monthly Y Date of DEXA bone scan Age of first menstrual cycle 14 Date of Last Pap Smear 07/19/2022 Sexual Problems? N LMP Definite Desired Control Method Withdrawal N Obstetrics History GPAL:G 2 P 1 0 1 1 Type Value Full Term 1 Spontaneous 1 Living 1 Total 2 Past Encounters Encounter ID Performer Location Encounter Start Date Encounter Closed Date Diagnosis/Indication Diagnosis SNOMED-CT Code Diagnosis ICD10 Code Diagnosis Note [id number] Tucker Jones MD [facility] [address] [address] 06/29/2021 15:53:25 06/29/2021 17:49:32 Gynecologic examination 19273999 Z01.419 This patient is here for her annual exam. A thorough history was taken. A physical exam was performed. Age appropriat e routine health screening was ordered, performed, and discussed. Recommende d testing was ordered. She was asked to follow up in one year. She will be informed of any test results. Mammogram - na Colonoscop y - na Bone Density - na Cholestero l - Pap - today [id number] [facility] [address] [address] 07/19/2022 13:33:08 07/19/2022 14:13:17 Gynecologic examination 96407786 Z01.419 Suggested Calcium with Vitamin D 1200-1500m g daily. Patient advised to get an annual flu shot in the fall and she could obtain at [facility] or [facility] clinic. Also to obtain TDap vaccinatio n if you have not had one in the last 10 years. Recommend yearly mammograms . Encouraged monthly self breast exams. Encourage safe sexual practices, to use condoms and limit partners if not already in a monogamous relationsh ip. Engage in daily exercise of low impact aerobic exercise 45-60 minutes 4-5 times weekly. Avoid tobacco and illicit drugs as well as using moderation with alcohol intake less than 1-2 8 oz beverages daily. This lifestyle behavior pattern will lead to less health conditions and longer life span. If BMI greater than 25 weight watchers or dietary consult advised. All questions have been answered. Patient appears to understand informatio n, but if you have any questions please call or respond to this email. Pap/hpv sentSTD Screen sentGeneti c Screen discussedC olon Screen PCPDexa Screen naRoutine Labs PCPMammo PCP per pt 2022 Screening mammography 24 190652 Z12.31 Menorrhagia 706369679 N9 2.0 Heavy menses all her life.??Cer vical polyp on exam???Bar robin flush with ext OS but cervix friable with this present. Will update US [id number] Tucker Jones MD [facility] [address] [address] 07/03/2021 13:34:32 07/03/2021 14:33:30 Menorrhagia 752585690 N92.0 [id number] Tucker Jones MD [facility] [address] [address] 07/16/2021 09:27:30 07/16/2021 10:46:32 Menorrhagia 852514836 N92.0 Dysmenorrhea 700736526 N 94.6 this patient is a 40-year-ol d female presents for follow-up on menorrhagi a and dysmenorrh ea. We reviewed endometria l ablation. We spent over 25 minutes face-to-fa ce. We reviewed all her treatments for menorrhagi a and dysmenorrh ea. Her suffering is profound and has been prolonged, since her youth. We talked about endometria l ablation and tubal ligation in detail. Talked about the procedure details. We talked about hysterecto my. Talked about oophorecto my in some detail. We talked about Mirena IUD. We reviewed other medical options that include Depo a and Nexplanon. She is favoring endometria l ablation with laparoscop ic bilateral salpingect keanu. She will contact us to schedule that. [id number] Tucker Jones MD [facility] [address] [address] 07/26/2022 08:59:49 07/26/2022 09:45:43 Excessive and frequent menstruation 340695252 N92.0 [id number] Shanice Fenton [facility] [address] [address] 08/09/2022 10:01:13 08/09/2022 12:40:25 Menorrhagia 195532388 N92.0 TVUS reviewed.F ibroids.De clines hormonal options & non-hormon al option of lysteda for heavy menses.Int erested in endometria l ablation.W ill need MD consult to ensure this is a good option for her based on US findings.A ll lab work wnlH/O given for [facility]. Time spent in visit is a total of 15 mins with at least 50% of visit consisting of counseling and review of plan of care NOT including time spent on procedure. Polyp at cervical os 248 638303 N84.1 See procedure notes. [id number] Tucker Jones MD [facility] [address] [address] 01/21/2023 17:02:37 01/21/2023 18:32:26 Breast lump 32865749 N63.0 This patient is a 42-year-ol d female has a breast mass. She states that it is firm, immobile, mildly tender, without warmth. It was examined. Isn't the medial aspect of the left breast. It may be a part of the skin of the subcutaneo us fat. Is immobile, smooth, nontender. We agreed to ultrasound of this area. It may be something that can be incised and drained. It maybe slightly flocculent . We spent 20 minutes face-to-fa ce. More than 50% was counseling . [id number] Tucker Jones MD [facility] [address] [address] 02/12/2023 17:11:32 02/13/2023 09:03:47 Mass of chest wall 194937165 R22.2 42-year-ol d female with a benign-yadi earing mass of the chest wall. Imaging also was indicative of a benign process. Suggestive of sebaceous cyst. Patient would like it removed. She is tenderness at this site. There is bruising. She is concerned about malignant potential and recurrent problems with this site. She would like it excised. Agreed. Will refer to breast specialist . Reviewed imaging today. Discussed treatment. Discussed referral. Spent 20 minutes face-to-fa ce. More than 50% was counseling . Health Concerns Section Related Observation LastModified by Organization Detai ls LastModified Time None Recorded Concern Status LastModified by Organization Details LastModified Time None Recorded Advance Directives Directive N: Payers Encounter Date Sequence Insurance Name Policy Number Policy Gao Covered Member ID Gao Member ID Guarantor Name 07/19/2022 1 [employer] [id number] Manohar Noyola [id number] YG [place] 07/26/2022 1 [employer] [id number] Manohar Noyola [id number] YG Phillips Haynes 08/09/2022 1 [place] [id number] Manohar Topetek [id number] YG Rinlionel Jazmín 01/21/2023 1 [place] [id number] Manohar Noyola [id number] YG Phillips Jazmín 02/12/2023 1 [place] [id number] Manohar Noyola [id number] Alan Topetek Notes Date Note Type Note Provider Name and Address Organization Details Recorded Time 07/19/2022 text/html Annual GYNReport ed bypatient.Menstrua l cycle:Normal menses Urinary symptoms:No hematuria; No incontinence Vulva:No genital lesion Vagina:Normal vaginal discharge Breast:No breast pain; No breast lump; No nipple discharge Sexual complaints:No sexual complaints; No pain during intercourse; Normal libido Menopausal Symptoms:No menopausal symptoms; Normal vaginal lubrication Psychological symptoms:No depression; No anxiety; No PMDD Preventive measures:Encourage self breast examination; Encourage regular exercise; Encourage no tobacco use Shanice Fenton [facility] [address], [place], [address], [facility] 07/19/2022 14:07:31 08/09/2022 text/html Here today for review of US & removal of ext cervical polyp. Shanice Fenton [facility] [address], [place], [address], [facility] [facility] 08/09/2022 12:34:26 01/21/2023 text/html This patient is a 42-year-old female has a breast mass. She states that it is firm, immobile, mildly tender, without warmth. It was examined. Isn't the medial aspect of the left breast. It may be a part of the skin of the subcutaneous fat. Is immobile, smooth, nontender. We agreed to ultrasound of this area. It may be something that can be incised and drained. It maybe slightly flocculent. We spent 20 minutes [id number]. More than 50% was counseling. Tucker Jones MD [address], [place], [address], [facility] 01/21/2023 18:11:55 02/12/2023 text/html 42-year-old fema le with a benign-appearing mass of the chest wall. Imaging also was indicative of a benign process. Suggestive of sebaceous cyst. Patient would like it removed. She is tenderness at this site. There is bruising. She is concerned about malignant potential and recurrent problems with this site. She would like it excised. Agreed. Will refer to breast specialist. Reviewed imaging today. Discussed treatment. Discussed referral. Spent 20 minutes [id number]. More than 50% was counseling. Tucker Jones MD [address], [place], [address], [facility] 02/12/2023 17:40:29 OBGyn Episode Ob Episode Information Episode Created Date Number of Fetuses Patient Bloodtype Patient rh Status Prepregnancy Weight lbs Domestic Partner Domestic Partner Phone Father Name Lead Handler Status 06/30/19 22 1 CLOSED Fetus Data First Name Last Name Admitted to NICU Weight (g) Sex Living Outcome Pediatric Complications Fetus ID Race Codes Race Delivery Type 3345.24 1 F Full Term [id number] Vaginal Delivery Kishor Calculation Initial Kishor Date Initial Exam Date Initial Exam Provider Initial Ultrasound Date Last Menstrual Period Date Ultra Sound Weeks Gestation 0 Eighteen To Twenty Week Kishor Update Ultra Sound Date Fundal Height At Umbil Quickening Date Ultra Sound Latest Weeks Gestation Final Kishor Confirmed By Final Kishor Confirmed Date Final Kishor Date Ultra Sound Latest Days Gestation 0 0 Menstrual History Last Menstrual Date Menses Monthly On Bcp Conception Prior Menses Frequency Hcg Plus Date Menarche Onset Age Delivery Information Delivery Date Delivery Type Labor Anesthesia Weeks Gestation Incision Type Labor Labor Length Hrs Delivered By Post Complications Tubal Sterilization Discharge Date Comments 0 39 Evert umbilical cord knots/ GDM Discharge Information Feeding Method Contraceptive Method Maternal HG B and HCT Levels Ob Episode Information Episode Created Date Number of Fetuses Patient Bloodtype Patient rh Status Prepregnancy Weight lbs Domestic Partner Domestic Partner Phone Father Name Lead Handler Status 06/30/19 22 1 CLOSED Fetus Data First Name Last Name Admitted to NICU Weight (g) Sex Living Outcome Pediatric Complications Fetus ID Race Codes Race Delivery Type , Spontane ous [id number] Ikshor Calculation Initial Kishor Date Initial Exam Date Initial Exam Provider Initial Ultrasound Date Last Menstrual Period Date Ultra Sound Weeks Gestation 0 Eighteen To Twenty Week Kishor Update Ultra Sound Date Fundal Height At Umbil Quickening Date Ultra Sound Latest Weeks Gestation Final Kishor Confirmed By Final Kishor Confirmed Date Final Kishor Date Ultra Sound Latest Days Gestation 0 0 Menstrual History Last Menstrual Date Menses Monthly On Bcp Conception Prior Menses Frequency Hcg Plus Date Menarche Onset Age Delivery Information Delivery Date Delivery Type Labor Anesthesia Weeks Gestation Incision Type Labor Labor Length Hrs Delivered By Post Complications Tubal Sterilization Discharge Date Comments 3 Discharge Information Feeding Method Contraceptive Method Maternal HG B and HCT Levels
--- NOTE | 2024-07-14 06:47 | P.OP_ITS ---
Procedure Note - Detailed Date of Procedure 07/14/24 Pre-op Diagnosis bilat carpal and cubital tunnel syndrome Post-op Diagnosis Same Procedure Performed left ectr and CuTR Surgeon Brittny Ren MD Electrocardiograph Operator wili garcia pa-c Anesthesia MAC Description of Procedure INFORMED CONSENT: The patient was seen and examined and marked in the pre-op area.? The patient signed the consent form. PROCEDURE IN DETAIL:The patient taken back to OR on the stretcher in supine position. Time out performed with anesthesia, surgeon and staff agreeing on patient's name site and surgery to be performed SCDs were placed on the lower extremities and inflated. A tourniquet was placed on {left} upper extremity and antibiotics given IV After anesthesia administered sedation I injected {10}cc 1%lido with epi and 0.5% marcaine plain at the operative sites The?{left upper extremity}?was prepped and draped in sterile fashion the??{left upper extremity} was? exsanguinated with Esmarch bandage and tourniquet inflated to 250mmHg I made a transverse incision in the {left} volar distal wrist crease through skin and dermis with 15 blade scalpel.? Littler scissors spread down to antebrachial fascia. A small incision was made in antebrachial fascia allowing access to Carpal tunnel. I proceeded with sequential dilation staying in line with the ring finger and hugging the hook of the hamate.? I then used the synovial elevator to free any adhesions from the underside of the transverse carpal ligament. Next I was able to insert the Microaire endoscopic carpal tunnel device with direct visualization of the transverse fibers on the monitor and proceeded with complete segmental retrograde release of the ligament in its entirety.? I irrigated with normal saline and closed with 4-0 monocryl for dermis and subcuticular closure. I next proceeded with making a longitudinal incision between two heads for flexor carpi ulnaris at end of {left} cubital tunnel with 15 blade scalpel.? Littler scissors were used to spread down to FCU fascia.? An incision was made in FCU fascia and ulnar nerve identified exiting cubital tunnel.? I proceeded with complete retrograde release of the cubital tunnel including 7cm proximal for the intermuscular septum.? The nerve appeared healthy with visible vaso nervorum.? There was no subluxation on full elbow range of motion. ? I irrigated with normal saline and closure with 4-0 monocryl for dermis and subcuticular. The incisions were covered with Dermabond then 4x4s, erna, and a posterior elbow and volar wrist splint for patient safety, security and comfort and secured with abner bandages after the tourniquet was let down noting the hand was warm and well perfused.? Patient awaken from anesthesia and transferred to recovery in stable condition Complications - none EBL- 1cc Disposition - home in stable condition wili garcia pa-c was essential for positioning, retraction, closure and dressing placement [facility] Billing Surgery - Charge Forward: Surgery Billing ([id number] same for wili adding )
--- NOTE | 2024-07-14 06:47 | WPDHPUPDATE1 ---
History and Physical Update Update Date/Time: 07/14/24 06:47 Patient seen and examined in pre-operative holding area. No interval change in medical history or symptoms. Patient recalls previous discussion of benefits and alternatives to procedure. Continues to desire to proceed with left endoscopic possible open carpal tunnel release and left cubital tunnel release. Reviewed procedure, post-op expectations and risks including but not limited to bleeding, infection, injury to tendon/nerve/vessel, decreased hand function, stiffness, RSD, no change or worsening of symptoms. I discussed the possible use of assistants and their participation in the case. Patient stated understanding and signed the consent form wishing to proceed.
[2024-07-14 09:25] VITALS: BP 140/74; PULSE 84; RESP 16; TEMP 36.8; O2SAT 99
[2024-07-14 09:32] LABS: BEDSIDEPREGUCG Negative (Negative)
[2024-07-14] MEDS: LACTATED RINGERS 1,000 ML 30 ML IV CONT (09:45)
--- NOTE | 2024-07-14 10:05 | WPDANESEPPF ---
Anes - Initial Pre Proc Eval Procedure: Operation Date: 07/14/24 11:00 Proposed Procedures p Left Endoscopic Carpal Tunnel Release, Possible Open, Left Cubital Tunnel Release - Brittny Ren MD Date/Time: 07/14/24 10:05 Surgeon: Brittny Ren MD Pre Op Diagnosis: bilat carpal and cubital tunnel syndrome Patient Data Age: 43 Gender: F Height: 1.66 m Weight: 125.6 kg Last Vital Signs Temp 36.8 C 07/14/24 09:25 Pulse 84 07/14/24 09:25 Resp 16 07/14/24 09:25 BP 140/74 07/14/24 09:25 Pulse Ox 99 07/14/24 09:25 O2 Del Method Room Air 07/14/24 09:25 Allergies Allergy/AdvReac Type Severity Reaction Status Date / Time nickel Allergy Severe Swelling Verified 07/14/24 09:29 zinc Allergy Mild vomiting Verified 07/14/24 09:29 Corticosteroids Allergy Unknown Unknown Verified 07/14/24 09:29 (Glucocorticoids) latex AdvReac Mild Rash Verified 07/14/24 09:29 gluten AdvReac Unknown Unknown Verified 07/14/24 09:29 Milk Containing Products AdvReac Unknown Unknown Verified 07/14/24 09:29 (Dairy) shellfish derived AdvReac Unknown Unknown Verified 07/14/24 09:29 cortizone shot AdvReac Severe Numbness Uncoded 07/14/24 09:29 Home Medications ?Medication ?Instructions ?Recorded ?Confirmed ?Type albuterol sulfate 90 mcg/actuation 2 puff inhalation .Q4 hours PRN 05/01/24 07/09/24 Rx aerosol inhaler (Ventolin HFA) cough #18 grams cyclobenzaprine 10 mg tablet 10 mg PO HS 05/01/24 07/14/24 History ibuprofen 800 mg tablet 800 mg PO Q8H PRN migraine headache 05/01/24 07/14/24 History gabapentin 300 mg capsule 300 mg PO QID 07/06/24 07/14/24 History mims brew 1 cp PO HS 07/06/24 07/14/24 History magnesium carb,citrate,oxide 300 mg PO HS 07/09/24 07/14/24 History (Magnesium Complex) hydrocodone 5 mg-acetaminophen 325 1 tablet PO Q6H PRN pain #8 tabs 07/14/24 Rx mg tablet Laboratory Tests 07/14/24 09:20 POC Urine HCG, Qual Negative (Negative) Patient hx anesthesia problems: none Family hx anesthesia problems: none Results Review: All pre-operative results and documents have been reviewed as part of the pre-operative evaluation. [facility] Past Medical History Medical History Headache Ulnar neuropathy at elbow Bilateral carpal tunnel syndrome Surgical History Surgical History (Updated 07/14/24 @ 10:08 by Srinath Grajeda MD) H/O cervical spine surgery Family History Family History Father Diabetes mellitus Mother Diabetes mellitus Other Family history of Alzheimer's disease Social History Social History Smoking status: Never smoker Alcohol intake: current Substance use: never Substance use type: does not use Do You Feel Safe in your Home?: Yes Lack of Transportation: No Lack of Food: Never True Current Housing: I Have Housing Concerned About Future Housing: No Difficulty Paying Gas/Electric Bills: No Difficulty Paying for Meds: No Currently Unemployed: No Education: Bachelor's Degree Difficulty w/ Childcare or Family Care: No Anes - Eval Final PreProcedure Day of Procedure 07/14/24 10:05 Patient weight: morbidly obese Heart: regular rate and rhythm Lungs: clear to auscultation Airway: Mallampati scale class II and special considerations Neurological: alert and oriented Last oral intake: >/= 8 hours ASA classification: III Emergent: no Anesthetic plan: proceed Anesthesia type and monitoring: general GIVS and standard monitoring Results Review: All pre-operative results and documents have been reviewed as part of the pre-operative evaluation. Informed Consent: The patient's anesthetic plan and its attendant risks and benefits were discussed with the patient/family/POA. Questions were solicited and answers provided to the satisfaction of the patient/family/POA.
[2024-07-14] MEDS: LIDO 1%/EPINEPHRINE 1:100,000 20 ML VIAL 10 ML INFILTRATE (10:36)
[2024-07-14] MEDS: BUPivacaine HCL 0.5% PF 30 ML VIAL 10 ML INFILTRATE (10:36)
[2024-07-14] MEDS: ceFAZolin 3 GM/D5W 100 ML 100 ML IVPB (10:36)
[2024-07-14 11:08] VITALS: BP 103/58; PULSE 94; RESP 14; O2SAT 97
[2024-07-14 11:38] VITALS: BP 128/63; PULSE 82; RESP 16
[2024-07-14] MEDS: oxyCODONE HCL (*CRX) 5 MG TAB IR PO (12:00)
[2024-07-14 12:08] VITALS: BP 135/55; PULSE 84; RESP 16
== END 2024-07-14 12:12 | disposition home or self-care (01) ==
PROVIDERS: Physician Assistant Surgical; PCP Physician Assistant; Visit Provider Plastic Surgery
PROC: 01N54ZZ Release Median Nerve, Percutaneous Endoscopic Approach (ICD-10-PCS; CPT 29848; principal; 2024-07-14 11:00)
DX: G56.03 Carpal tunnel syndrome, bilateral upper limbs (principal); G56.22 Lesion of ulnar nerve, left upper limb; E66.01 Morbid (severe) obesity due to excess calories; Z68.42 Body mass index [BMI] 45.0-49.9, adult; Z79.51 Long term (current) use of inhaled steroids; Z79.1 Long term (current) use of non-steroidal anti-inflammatories (NSAID); Z79.891 Long term (current) use of opiate analgesic; Z98.890 Other specified postprocedural states; Z98.1 Arthrodesis status
CPT/HCPCS: 64718; 29848; A9270; J0690; J2004; J2250; J2704; J3010; J7120

== ENCOUNTER 2024-08-25 02:10 | Day surgery (SDC) | payer OTHER, SELFPAY ==
[2024-08-16 15:43] VITALS: BMI 46.0
--- NOTE | 2024-08-16 15:46 | PC.NURSE ---
Report to the Outpatient Waiting Room, entrance under the green pavilion located off [facility], at time _1145_ on date _[id number]_. Planned Procedure Time: _145pm_.? Time changes happen often and if your time is changed the preop area will call you the afternoon before. - You and your visitor will be asked to self-screen and do not enter if you have any COVID symptoms. Please call surgeon if you need to reschedule. - A mask is optional within the hospital at this time. Patients may have clear liquids (water, carbonated beverages, clear teas, apple juice) until 3 hours prior to surgery with a maximum of 20 ounces. - No food from midnight until time of surgery and no smoking, or chewing tobacco (or any form of nicotine). No chewing gum, candy or mints. Take only the following medications with a SIP of water on the morning of surgery: ___Gabapentin and if needed Tylenol DO NOT STOP ANY OF YOUR OTHER PRESCRIPTION MEDICATIONS PRIOR TO SURGERY EXCEPT THE FOLLOWING Hold all vitamins and supplements for 3 days per anesthesiologist. Medications to discontinue per physician Ibuprofen if told by Dr Ren's office. Date to take last dose Please no make-up, nail palestinian, hairspray, perfume, deodorant, or body powder the day of surgery.? No jewelry (including any body piercings) or valuables the day of surgery, leave them at home.? Please take a shower or bath the night before, or the morning of, surgery with an antibacterial soap.? Wear comfortable, loose fitting clothing.? - Jewelry must be removed prior to entering the operating room.? Rings and piercings that are not removed may be cut off. - The hospital will not accept responsibility for valuables.? - Please leave all valuables, including medications, at home the day of surgery. If you are going home after surgery, a licensed straddle truck driver must drive you home.? - NO public transportation without another adult if you receive anesthesia. - We recommend that an adult stay with you for 24 hours following discharge. - We also recommend that you do not drive, make important decision, drink alcoholic beverages, or take any drugs that were not prescribed by your health care provider for at least 24 hours after your discharge time. Follow any additional instructions given to you from your surgeon. Telephone instructions given to _Alan_and asked if any additional questions and then verbalized understanding. Patient advised to call surgeon office or pre surgery nurse liaison [phone] if any additional questions.
--- NOTE | 2024-08-16 15:55 | PC.NURSE ---
Report to the Outpatient Waiting Room, entrance under the green pavilion located off [facility], at time _1145_ on date _[id number]_. Planned Procedure Time: _145pm_.? Time changes happen often and if your time is changed the preop area will call you the afternoon before. - You and your visitor will be asked to self-screen and do not enter if you have any COVID symptoms. Please call surgeon if you need to reschedule. - A mask is optional within the hospital at this time. May have clear liquids (water, carbonated beverages, clear teas, apple juice) until 545am prior to surgery with a maximum of 20 ounces. Nothing to drink after 545am. - No food from midnight until time of surgery and no smoking, or chewing tobacco (or any form of nicotine). No chewing gum, candy or mints. Take only the following medications with a SIP of water on the morning of surgery: __Gabapentin DO NOT STOP ANY OF YOUR OTHER PRESCRIPTION MEDICATIONS PRIOR TO SURGERY EXCEPT THE FOLLOWING Hold all vitamins and supplements for 3 days per anesthesiologist. Medications to discontinue per physician Hold Ibuprofen if told by Dr Ren's office. Date to take last dose Please no make-up, nail maltese, hairspray, perfume, deodorant, or body powder the day of surgery.? No jewelry (including any body piercings) or valuables the day of surgery, leave them at home.? Please take a shower or bath the night before, or the morning of, surgery with an antibacterial soap.? Wear comfortable, loose fitting clothing.? - Jewelry must be removed prior to entering the operating room.? Rings and piercings that are not removed may be cut off. - The hospital will not accept responsibility for valuables.? - Please leave all valuables, including medications, at home the day of surgery. If you are going home after surgery, a licensed driver guard must drive you home.? - NO public transportation without another adult if you receive anesthesia. - We recommend that an adult stay with you for 24 hours following discharge. - We also recommend that you do not drive, make important decision, drink alcoholic beverages, or take any drugs that were not prescribed by your health care provider for at least 24 hours after your discharge time. Follow any additional instructions given to you from your surgeon. Telephone instructions given to _Alan__and asked if any additional questions and then verbalized understanding. Patient advised to call surgeon office or pre surgery nurse liaison [phone] if any additional questions.
--- OUTSIDE RECORDS SUMMARY | 2024-08-25 02:17 | XMS_ITS | Data Portability ---
[facility] Address [address] [place] [address] Assessment No assessment recorded. Plan of Treatment Reminders Order Date Submit Date Provider Last Modified By Organization Details Last Modified Time Details Appointments ANY 15 2024 11:15A M EMELYN Hoff Not available Not available Not available Lab urinalys is complete , reflex culture 2023 024 Yorn [facility], [address], [place], [address], 09/29/2023 17:20:22 CBC w/ auto diff 2023 024 WILEYBuyapowa [facility], [address], [place], [address], 09/29/2023 17:20:21 CMP, serum or plasma 2023 024 Yorn [facility], [address], [place], [address], 09/29/2023 17:20:21 Referral None recorded . Procedures None recorded . Surgeries None recorded . Imaging XR, chest, 2 view 2023 024 [email or web address] Not available 12/09/2023 08:50:25 electroc ardiogra m 2023 024 [email or web address] In-Office Order, Internal Use Only DO Not Attach Compendium DO Not Attach Compendium, Do Not Delete/merge, [id number] 09/19/2023 00:56:28 Medication Orders gabapent in [address] [facility] [address] [place], [address], 06/28/2024 12:19:30 cycloben zaprine 10 [address] [facility] [address] [place], [address], 03/29/2024 08:38:07 gabapent in 300 [address] capsule [address] [facility] [address] [place], [address], 03/29/2024 08:40:03 Patient TargetsNo targets recorded. Patient Instructions Encounter Date Encounter Id Patient Instructions Last Modified By Organization Details Last Modified Time 03/29/2024 [id number] A healthy lifestyle: care instructions [email or web address] Not available 03/29/2024 08:37:58 06/28/2024 [id number] A healthy lifestyle: care instructions [email or web address] Not available 06/28/2024 12:19:21 Reason for Referral None Reported. Results Created Date Observation Date Name Description Value Unit Range Abnormal Flag Note LastModifiedBy Organization Detail LastModifiedTime 09/17/1909/22/2023 juan pradogr am No observ ation record ed. WILEY In-Office Order Internal Use Only DO Not Attach Compendium DO Not Attach Compendium, Do Not Delete/merge, [id number] 09/23/2023 08:39:18 10/07/19 24 10/07/2023 elect mary ann diogr am No observ ation record ed. WILEY In-Office Order Internal Use Only DO Not Attach Compendium DO Not Attach Compendium, Do Not Delete/merge, [id number] 10/07/2023 10:22:33 10/07/19 24 09/17/2023 elect rocclinton diogr am No observ ation record ed. WILEY In-Office Order Internal Use Only DO Not Attach Compendium DO Not Attach Compendium, Do Not Delete/merge, [id number] 10/07/2023 10:28:03 Result Notes None recorded. Problems Name Problem SNOMED Code Status Onset Date Resolution Date Notes Provider Name and Address Organization Details Recorded Time Migraine 87156529 Active 2024 EMELYN Hoff Attn: Alondra gamble,[address] [facility], [place], [address], [place] - [facility] 5 07:30:53 Chronic neck pain 1687805017092 Active 2024 EMELYN Hoff Attn: Alondra gamble,[address] [facility], [place], [address], [place] [facility] 5 07:30:54 Bilateral carpal tunnel syndrome 38801521233268 101 Active 2024 EMELYN Hoff Attn: Alondra gamble,[address] [facility], [place], [address], [place] [facility] 5 12:23:12 Problem Notes None recorded. Procedures Surgical History Date Name Laterality Status Provider Name and Address Organization Details Recorded Time 4 excision of mass completed [facility] 09/17/2023 16:38:56 8 removal of mole of skin by excision completed [facility] 09/17/2023 16:39:25 0 epidural anesthesia completed [facility] 09/17/2023 16:39:38 Imaging Results None recorded. Procedure Notes None recorded. Medical Equipment None Reported. Allergies Allergen ID Allergen Name Allergen Category Reaction Reaction Severity Criticality Documentation Date Start Date Code Code System Note Provider Name and Address Organization Details Recorded Time 635297 Product containin g glucocort icoid (product) medicatio n anaphylax is severe high 09/15/2023 04469 6006 SNAJITH Chavez LPN [facility], [facility] SI 4 16:46:21 481356 cortisone medicatio n arthralgi a (joint pain) myalgias (muscle pain) other Not available Not available Not available high 09/15/20232022 2878 RxNorm [place], [place] null, [place] - [facility] 5 12:07:11 713460 Milk (substanc e) food,medi cation vomiting severe high 09/15/2023 89994 002 SNOMED Arielle Chavez LPN [place], [place] [facility] 4 16:47:17 082146 blue dye medicatio n rash mild low 09/15/2023 UNK Arielle Chavez LPN [place], [place] [facility] 4 16:47:57 140395 wheat gluten extract food swelling Not available high 09/15/20232021 60427 81 RxNorm unrec ogniz ed react ion (text : Stoma ch upset , code: 58514 9005) (from exter nal sourc e) Lenexachelsea Alberto [place] null, [place] - [facility] 5 12:07:18 376140 latex environme nt,medica tion rash Not available high 09/15/20232010 36459 91 RxNorm Tiffani Alberto [place], [place] [facility] 5 12:07:22 210949 zinc environme nt,medica tion rash Not available high 09/15/20232008 80801 RxNorm [place] Alberto [place], [place] [facility] 5 12:07:35 631018 bupivacai ne medicatio n Not available Not available unabletoasse 09/15/2023 1815 RxNorm Arielle Chavez LPN [place], [place] [facility] 4 16:49:40 457817 lidocaine medicatio n Not available Not available unabletoasse 09/15/2023 6387 RxNorm Arielle Ch[place] LPN [place] [facility] 4 16:49:54 965015 dexametha sone medicatio n Not available Not available unabletoasse 09/15/2023 3264 RxNorm Arielle Chavez LPN [place], [place] [facility] 4 16:50:12 301153 shellfish derived food,medi cation Not available Not available unabletoasse 09/15/2023 05519 UNK Arielle Chavez LPN null, [facility] - [facility] 4 16:50:24 359385 triamcino lone medicatio n Not available Not available unabletoasse ss 09/15/2023 84452 RxNorm Arielle Chavez LPN null, [facility] - [facility] 4 16:50:40 634718 nickel environme nt Not available Not available Not available 10/01/2023 18939 29 RxNorm [place], [place] dave, [facility] 4 14:23:27 371765 Duocaine medicatio n Not available Not available Not available 06/28/20242023 84049 9 RxNorm unrec ogniz ed react ion (text : Unkno wn, code: 49180 5006) (from [facility] sourc e) [facility], SI 5 12:07:14 212629 Shellfish (substanc e) food,medi cation Not available Not available Not available 06/28/20242021 78809 9006 SNOMED unrec ogniz ed react ion (text : Unkno wn, code: 10675 5006) (from [facility] e) [facility], [place] [facility] 5 12:07:29 Medications Name Sig Start Date [...] blood by Pulse oximetry Heart rate Systolic And Diastolic Provider Name and Address Organization Details Last Updated DateTime 5 167.64 cm 43.4 kg/m2 367863. 35 g 98 % 98 % 96 /min 118/78 mm[Hg] Jazmine Chavez LPN [facility] 5 08:29:43 Date Recorded Body height Body mass index (BMI) Body weight Oxygen saturation Oxygen saturation in Arterial blood by Pulse oximetry Heart rate Systolic And Diastolic Provider Name and Address Organization Details Last Updated DateTime 5 165.1 cm 46 kg/m2 251639. 54 g 99 % 99 % 83 /min 114/72 mm[Hg] [facility] 5 12:10:26 Date Recorded Body height Body mass index (BMI) Body weight Oxygen saturation Oxygen saturation in Arterial blood by Pulse oximetry Heart rate Provider Name and Address Organization Details Last Updated DateTime 4 167.64 cm 39.7 kg/m2 281185. 77 g 99 % 99 % 97 /min [facility] 4 16:35:34 Social History Question Answer Notes LastModified by Organizat [employer] Details LastModified Time Tobacco Smoking Status Never Smoker Tiffani Alberto [place] null, [place] - [facility] 09/17/2023 16:38:11 What Is Your Level Of [...] Reflux (GERD) N Cancer N Stroke N Headaches Y Kidney or Bladder Problems N Have you had a mammogram in the last yea r? Y Eating Disorder N Skin Problems N Asthma N Allergies N Have you had a PSA blood test in the las t year? N Substance Abuse N Hepatitis N ADHD N High Cholesterol N Liver Disease N Schizophrenia N Thyroid Problems N GI Problems N Anemia N Heart Attack (TN) N Diabetes N Seizures/Epilepsy N Have you had a colonoscopy in the last 1 0 years? N Heart Failure N Osteoporosis N Gynecological HistoryNo gynecological history recorded. Obstetrics History GPAL:G 0 P 0 0 0 0 Immunizations Vaccine Type Date Status Note Provider Nam e and Address Organization Details Recorded Time Influenza, split virus, trivalent, preservative 3 completed Not Available [facility] 06/28/2024 11:52:54 Influenza, split virus, trivalent, PF 6 completed Not Available [facility] 06/28/2024 11:52:54 Influenza, split virus, quadrivalent, PF 7 completed Not Available [facility] 06/28/2024 11:52:54 Past Encounters Encounter ID Performer Location Encounter Start Date Encounter Closed Date Diagnosis/Indication Diagnosis SNOMED-CT Code Diagnosis ICD10 Code Diagnosis Note [id number] Tony Hudson, DO [facility] [place] [facility] [place] [address] [facility] [address] [place] [address] 09/17/2023 15:56:53 09/25/2023 18:20:52 Adult health examination 195381715 Z00.00 Healthy diet and exercise, HCM as discussed Migraine 61380332 G43.90 9 Hydration, meds as discussed, call for s/s as discussed Neck pain 29164468 M54.2 scheduled for surgery, doing pre-op, if pre-op is NL will clear for srugery Pre-surger y evaluation 714657295 Z01.818 patient mentions metal testing, we will get further guidence from surgeon [id number] Tony Hudson, DO [facility] [place] [address] 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 [address] [place] [address] 06/28/2024 11:51:08 06/29/2024 10:18:51 Chronic neck pain 3286678698 107 M54.2 G89.29 Had surgery and healing well, has appt in Oct Migraine 45774759 G43.90 9 Hydration, meds as discussed, call for s/s as discussed Obese class III 10601033 5 E66.813 HIV screen ing declined 5869545073 75040 Z53.20 History of cervical spine fusion 6342484704 101 Z98.1 now doing fine, using neurontin but we are trying to decrease dosage and going to PT and chiropract or Bilateral carpal tunnel syndrome 2122149605 5048565 G56.03 also cubital tunnel and is scheduled for surgery on both bilateral Health Concerns Section Related Observation LastModified by Organization Detai ls LastModified Time None Recorded Concern Status LastModified by Organization Details LastModified Time None Recorded Advance Directives Directive None Recorded Payers Insurance Date Sequence Insurance Name Policy Number Policy Gao Covered Member ID Gao Member ID Guarantor Name 03/29/2024 1 [facility] (O) [id number] Manohar Noyola [id number] Alan Noyola 06/29/2024 1 [facility] (O) Manohar Noyola [id number] Alan Noyola 06/29/2024 1 [facility] [id number] Manohar Noyola [id number] Alan Noyola Notes Date Note Type Note Provider Name and Address Organization Details Recorded Time 4 text/html New Patient is in for routine PE and follow-up for the following medical conditions labs and medications.Patient in for the followingDiagnoses and all orders for this visit:Routine general medical examination at a health care facility (Primary)-pff-xtsgow-Eo ercise:yes but needs more-colonoscopy: No FMHX-flu: Declined-Covid [...] loss Arielle Chavez LPN [place], [place] [facility] 10/07/2023 10:17:53 5 text/html New Patient is in to discuss medication Diagnoses and all orders for this visit:Routine general medical examination at a health care facility (Primary)-wth-lpnazk-Kd ercise:yes but needs more-colonoscopy: No FMHX-flu: Declined-Covid [...] weight loss EMELYN Hoff Attn: Accounting[address] [place], [address], [facility] 03/29/2024 08:40:12 5 text/html Patient is in for routine follow up for the following medical imfctrzrlv-lkd-eutate-E xercise:yes but needs more-colonoscopy: No FMHX-flu: Declined-Covid [...] weight loss EMELYN Hoff Attn: Accounting[address] [facility], [place], [address], [facility] 06/28/2024 13:06:34 OBGyn Episode No OBEpisode recorded.
--- OUTSIDE RECORDS SUMMARY | 2024-08-25 02:17 | XMS_ITS | Clinical Summary ---
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 Gender Identity Not on file Sexual Orientation Not on file Plan of Treatment Health Maintenance Due Date Last Done Comments Annual Physical 1984 Hepatitis C 11/09/1999 DTaP, Tdap and Td Vaccines ( 1 - Tdap) 2000 Hepatitis B Vaccines (1 of 3 - 19+ 3-dose series) 2000 Cervical Cancer Screening Pa p with HPV Testing (Age 30 to 64) Every 5 Years 11/09/2011 Mammogram Screening 2021 COVID-19 Vaccine ( - 2023-2 5 season) 2023 Cervical Cancer Screening Pa p Smear (Age 30 to 64) Every 3 Years 07/19/2025 07/19/2022 Cervical Cancer Screening with HPV 07/19/2025 HPV Vaccines Aged Out No longer eligi ble based on patient's age to complete this topic Meningococcal B Vaccine Aged Out No l onger eligible based on patient's age to complete this topic Meningococcal Vaccine Aged Out No isidoro jose j eligible based on patient's age to complete this topic Pneumococcal Vaccine: Pediat rics (0 to 5 Years) and At-Risk Patients (6 to 49 Years) Aged Out No longer eligi ble based on patient's age to complete this topic RSV Immunizations Under 20 Months Aged Out No longer eligible based on patient's age to complete this topic Insurance [facility] Care Teams Straightener And Aligner Relationship Specialty Start Date End Date Keyon Silva PA-C [address] [place] [phone] PCP - General PHYSICIAN MEDICAL PATHOLOGIST 01/26/24
--- OUTSIDE RECORDS SUMMARY | 2024-08-25 02:17 | XMS_ITS | Data Portability ---
Author Organization [facility] Address [address] [place] [address] Care Team Providers Care Studio Associate Name Role Phone RENZO CAMACHO Primary Care Provider Assessment Encounter Date Assessment Date Assessment LastModified by Organization Details LastModified Time 08/20/2024 08/20/2024 Annual gynecological exam performed. Patient will come back in a year unless there are new symptoms. [email or web address] Not available 08/20/2024 09:46:58 Plan of Treatment Reminders Order Date Submit Date Provider Last Modified By Organization Details Last Modified Time Details Appointments None recorded. Lab pap, IG + HR HPV - HPV regardless but if HPV is positive need subtyping 16,18/45 add gc/ct/trich 2024 025 [facility] (Lab), [address] [place], [address], 5 16:21:00 Referral None recorded. Procedures None recorded. Surgeries None recorded. Imaging MAMMO, screening, digital, bilateral 2024 025 8 [facility], [address], [place], [address], 5 11:55:29 US, pelvis 2022 023 [email or web address] [facility], [address], [address], [place], [address], 3 22:05:35 US, transvagina l 2022 023 [email or web address] [facility], [address], [address], [place], [address], 3 22:05:35 Medication Orders None recorded. Patient TargetsNo targets [...] t Case: [id number] [address] gamble Provi ansley: Yaakov Alvarado Colle cted: 07/19 1556 MANAGER PHILOSOPHY Order ing Locat ion: [place] [facility] Recei tawanda: 07/20 1321 First Scree n: Radha Magaña ica Speci men: Scree al Pap - Image d, Cervi x STATE MENT OF ADEQU ACY: Satis facto ry for evalu ation Trans forma tion zone compo nent prese nt FINAL DIAGN OSIS: Negat abel for Intra epith elial Lesio n or Alirio sue (NIL) . Elect trevor monique d by Radha Magaña ica on 2022 at 12:19 PM ----- ----- [...] Thinp rep Imagi ng Syste m. CLINI TRNET INFOR MATIO N: Menst rual Statu s: [...] as clini mary phelan nted. Not Available [facility] (Lab) [address], [place], [address], 07/24/2022 13:21:45 08/21/19 25 08/20/2024 IMAGE GUIDE D PAP AND HPV REGAR DLESS image guided Pap, HPV regardless of Pap result SEE RESULT S BELOW CASE REPOR T: Cytol ogy Gynec ologi trent Repor t Case: [id number] [address] g Provi ansley: Haleigh Franks, TY Colle cted: 08/20 1035 Order ing Locat ion: [place] [facility] [place] Recei tawanda: 08/23 1032 First Scree n: Nish Johnson, CT Speci men: Thea melendez Pap - Image d, Cervi x STATE MENT OF ADEQU ACY: Satis facto ry for evalu ation Trans forma tion zone compo nent prese nt ----- ----- ----- ----- ----- ----- ----- ----- ----- ----- ----- ----- ----- ----- ----- ----- ----- ---- FINAL DIAGN OSIS: Negat abel for Intra epith elial Flori ruiz or Alirio sue ([facility]) . Elect trevor julian eneida d by Nish Johnson, CT on 2024 at 1517 CDT ----- ----- ----- ----- ----- ----- ----- [...] Neopl estefania (if appli cable ): Signi ficmaya t Clini trent Findi ngs: Other Histo [...] as clini mary phelan nted. Not Available [facility] (Lab) [address], [place], [address], 08/24/2024 16:21:00 08/21/19 25 08/20/2024 CT/GC AND TRICH OMONA S VAGIN JOHANNA (RRNA ), THINP REP VIAL CT/GC and trichomonas vaginalis (rrna), thinprep SEE RESULT S BELOW negati ve CHLAM YDIA TRACH OMATI S, PCR: Negat abel NEISS ERIA GONOR RHOEA E, PCR: Negat abel TRICH OMONA S VAGIN JOHANNA RIBOS OMAL RNA (RRNA ): Negat abel Not Available [facility] (Lab) [address], [place], [address], 08/24/2024 16:21:01 07/27/19 23 07/26/2022 US, pelvi s No observ ation record ed. [email or web address] [facility] [address], [place], [address], 07/26/2022 11:03:28 07/27/19 23 07/26/2022 US, trans vagin al No observ ation record ed. [email or web address] [facility] [address], [place], [address], 07/26/2022 11:03:19 07/27/19 23 07/26/2022 US, pelvi s No observ ation record ed. [email or web address] [facility] [address], [place], [address], 08/01/2022 16:30:48 02/11/19 24 02/11/2023 MAMMO , scree al, bilat eral No observ ation record ed. [facility] [address], [place], [address], 02/12/2023 20:52:27 06/13/19 24 06/13/2023 MRI, cervi trent spine , w/o contr ast No observ ation record ed. [address] [facility] [address], [place], [address], 07/08/2023 15:10:58 06/13/19 24 06/13/2023 MRI, cervi trent spine , w/o contr ast No observ ation record ed. [address] [facility] [address], [place], [address], 07/08/2023 15:10:32 Result Notes None recorded. Problems Name Problem SNOMED Code Status Onset Date Resolution Date Notes Provider Name and Address Organization Details Recorded Time Cytologi c finding 683362598 Completed 201012/04/2011 Nonspeci fic abnormal papanico laou smear of cervix, unsatisf actory smear;Re corded Elsewher e: No Locat ion: [facility] S ource: EHR Whirley Operator mary: N Practi ce ID: 0001 Garland lable Time: 09:45:00 AM Not Available [facility] 0 16:00:58 Speciali zed medical examinat ion Completed 201012/04/2011 Gynecolo gical Examinat ion;Garrett rded Elsewher e: No Locat ion: [facility] S ource: EHR Whirley Operator mary: N Kaia ce ID: 0001 Garland lable Time: 02:00:00 PM Sulma Chávez [facility] 2 09:43:30 Problem Notes None recorded. Procedures Surgical History Date Name Laterality Status Provider Name and Address Organization Details Recorded Time 08/10/19 23 Removal of Foreign Body completed Shanice Fenton, [facility]- [address], [place], [address], [facility] 08/09/2022 12:31:01 07/20/19 23 Date of Last Pap Smear completed Rebecca Barton [facility] 08/09/2022 10:11:33 02/10/19 13 termination of completed Sulma Chávez [facility] 11/05/2021 14:29:00 02/10/19 08 biopsy of liver completed Sulma Chávez [facility] 11/05/2021 14:28:46 Imaging Results None recorded. Procedure Notes None recorded. Medical Equipment None Reported. Allergies Allergen ID Allergen Name Allergen Category Reaction Reaction Severity Criticality Documentation Date Start Date Code Code System Note Provider Name and Address Organization Details Recorded Time 14178 latex environme nt,medica tion Not available Not available Not available 01/28/2020 61636 91 RxNorm Comme nt: [facility]; Not Available [facility] 0 14:20:38 53401 zinc environme nt,medica tion Not available Not available Not available 01/28/2020 89503 RxNorm Comme nt: [facility]at [facility]: [facility]; Not Available [facility] 0 14:20:38 48171 shellfish derived food,medi cation Not available Not available Not available 06/29/2021 89769 [facility] 16:13:05 57362 wheat gluten extract food hives Not available high 07/19/2022 71523 81 RxNorm Shanice Friederic h, [facility] [address], [place], [address], [facility] 3 13:54:44 37815 Milk (substanc e) food,medi cation vomiting severe high 07/19/2022 17497 002 SNOMED Shanice hoskins, [facility] [address], [place], [address], [facility] 3 13:55:04 Medications Name Sig Start Date Stop Date Status Note LastModified by Organization Details LastModified Time cyclobenz aprine 10 mg tablet TAKE 1 TABLET BY MOUTH THREE TIMES DAILY active Not Available Not Available No t Available albuterol sulfate 0.63 mg/3 mL solution for nebulizat ion USE 1 VIAL IN NEBULIZE R TWICE DAILY OR NEEDED. active Not Available Not Available No t Available albuterol sulfate 2.5 mg/3 mL (0.083 [...] TABLET BY MOUTH THREE TIMES DAILY NEEDED 2024 active Not Available Not Available Not Avai lable benzonata te 200 mg capsule TAKE 1 CAPSULE BY MOUTH THREE TIMES DAILY NEEDED FOR COUGH FOR 10 DAYS 08/20 completed Not Available Not Available Not Available hydrocodo ne 5 mg-acetam inophen 325 mg tablet TAKE 1 TABLET BY MOUTH EVERY 6 HOURS NEEDED FOR PAIN 08/20 completed Not Available Not Available Not Available meloxicam 15 mg tablet TAKE 1 TABLET BY MOUTH ONCE DAILY 08/20 completed Not Available Not Available Not Available prednison e 20 mg tablet TAKE 3 TABLETS BY MOUTH ONCE DAILY FOR 5 DAYS 07/19 completed Not Available Not Available Not Available clobetaso l 0.05 % topical cream APPLY A THIN LAYER TO THE AFFECTED AREA(S) TWICE DAILY. 08/20 completed Not Available Not Available Not Available topiramat e 25 mg tablet TAKE 1 TABLET BY MOUTH TWICE DAILY 08/20 completed Not Available Not Available Not Available phentermi ne 37.5 mg tablet TAKE 1 TABLET BY MOUTH ONCE DAILY BEFORE BREAKFAS T 08/20 completed Not Available Not Available Not Available sulfameth oxazole 800 mg-trimet hoprim 160 mg tablet TAKE 1 TABLET BY MOUTH TWICE DAILY FOR 5 DAYS 08/20 completed Not Available Not Available Not Available tramadol 50 mg tablet TAKE 1 TABLET BY MOUTH EVERY 8 HOURS NEEDED FOR 30 DAYS 08/20 completed Not Available Not Available Not Available benzonata te 100 mg capsule TAKE 1 CAPSULE BY MOUTH EVERY 8 HOURS NEEDED 07/19 completed Not Available Not Available Not Available Magtab 84 mg tablet,ex tended release 07/19 completed Prescrib ed Elsewher e: Yes Loca tion: [facility] odify By: cmsharley z Pablo pena DateTime : 10/30/19 17 02:45:00 PM Not Available Not Available Not Available lidocaine 5 % topical patch APPLY 1 TOPICALL Y ONCE DAILY, LEAVE ON FOR 12 HOURS AT A TIME active Not Available Not Available No t Available gabapenti n 300 mg capsule TAKE ONE CAPSULE BY MOUTH IN THE MORNING, ONE AT LUNCH, ONE AT DINNER, AND TWO AT NIGHT active Not Available Not Available No t Available codeine 10 mg-guaife nesin 100 mg/5 mL oral liquid TAKE 5 ML BY MOUTH EVERY 6 TO 8 HOURS NEEDED 07/19 completed Not Available Not Available Not Available albuterol sulfate HFA 90 mcg/actua tion aerosol inhaler INHALE 2 PUFFS BY MOUTH EVERY 4 HOURS NEEDED FOR COUGH 08/20 completed Not Available Not Available Not Available Vitamin D2 1,250 mcg (50,000 unit) capsule take 1 capsule by oral route every week 07/19 completed Prescrib ed Elsewher e: No Locat ion: [facility] odify By: jlgreen Ivelisse brito DateTime : 11/06/19 17 08:45:27 AM Not Available Not Available Not Available magnesium active Not Available Not Magalis ilable Not Available Bergamot 07/19 completed Not Available Not Available Not Available oxycodone 10 mg tablet TAKE 1 TO 2 TABLETS BY MOUTH EVERY 4 TO 6 HOURS NEEDED FOR 7 DAYS . DO NOT EXCEED 3 PER 24 HOURS 08/20 completed Not Available Not Available Not Available Vitafol-O ne 29 mg iron-1 mg-200 mg capsule 12/01 completed Prescrib ed Cuco e: Yes Loca tion: [facility] M odify By: toñito pena DateTime : 11/08/19 11 09:51:22 PM Not Available Not Available Not Available Vitals Date Recorded Body height Body mass index (BMI) Body weight Systolic And Diastolic Provider Name and Address Organization Details Last Updated DateTime 02/12/2023 167.64 cm 36.2 kg/m2 648044.69 g 134/80 mm[Hg] Melinda Soni [facility] 02/12/2023 17:26:04 Date Recorded Body height Body mass index (BMI) Body weight Systolic And Diastolic Provider Name and Address Organization Details Last Updated DateTime 08/09/2022 167.64 cm 35.5 kg/m2 08822.32 g 120/74 mm[Hg] Rebecca Barton [facility] 08/09/2022 10:10:13 Date Recorded Body height Body mass index (BMI) Body weight Systolic And Diastolic Provider Name and Address Organization Details Last Updated DateTime 08/20/2024 167.64 cm 45.8 kg/m2 186366.23 g 133/82 mm[Hg] Natalia Post [facility] 08/20/2024 10:03:15 Date Recorded Body height Body mass index (BMI) Body weight Systolic And Diastolic Provider Name and Address Organization Details Last Updated DateTime 01/21/2023 167.64 cm 36.2 kg/m2 853268.69 g 142/79 mm[Hg] Sulma Chávez [facility] 01/21/2023 17:14:44 Social History Question Answer Notes LastModified by Organizat ion Details LastModified Time Tobacco Smoking Status Former Smoker Natalia acosta, [facility] 02/12/2023 17:13:22 Do You Have An Advance Directive? No [email or web address] Information not available 07/16/2021 Are You Blind Or Do You Have Difficulty Seeing? No [email or web address] Information not available 07/16/2021 What Is Your Level Of Caffeine Consumption? Moderate Information not available 08/09/2022 How Much Tobacco Do You Chew? None Information not available 08/09/2022 In The 14 Days Before Symptom Onset, Have You Had Close Contact With A Laboratory-confir med COVID-19 While That Case Was Ill? No [email or web address] Information not available 07/16/2021 In The 14 Days Before Symptom Onset, Have You Had Close Contact With A Person Who Is Under Investigation For COVID-19 While That Person Was Ill? No [email or web address] Information not available 07/16/2021 Have You Been To An Area Known To Be High Risk For COVID-19? No [email or web address] Information not available 07/16/2021 Are You Deaf Or Do You Have Serious Difficulty Hearing? No Information not available 07/16/2021 What Type Of Diet Are You Following? GLUTENFREE [email or web address] Information not available 07/16/2021 What Is The Highest Grade Or Level Of School You Have Completed Or The Highest Degree You Have Received? [id number] Information not available 07/16/2021 Are There Any Guns Present In Your Home? No [email or web address] Information not available 07/16/2021 Do You Use Protection During Sex? No Information not available 07/16/2021 Do You Use Your Seat Belt Or Car Seat Routinely? Yes [email or web address] Information not available 07/16/2021 Do You Have Smoke And Carbon Monoxide Detectors In Your Home? Yes [email or web address] Information not available 07/16/2021 How Much Tobacco Do You Smoke? No [email or web address] Information not available 07/16/2021 Do You Use Sunscreen Routinely? Yes [email or web address] Information not available 07/16/2021 Has Tobacco Cessation Counseling Been Provided? No [email or web address] Information not available 02/12/2023 Have You Used IV Drugs? No [email or web address] Information not available 07/16/2021 Do You Have Difficulty Walking Or Climbing Stairs? No [email or web address] Information not available 02/12/2023 Sex: Unknown Functional Status Question Answer Note LastModified by Organizat ion Details LastModified Time Do you use any illicit or recreational drugs? No [email or web address] Information not available 07/16/2021 Do you or have you ever used any other forms of tobacco or nicotine? No [email or web address] Information not available 02/12/2023 What is your level of alcohol consumption? Occasional Information not available 08/09/2022 Are you able to walk? YESWOREST [email or web address] Information not available 07/16/2021 Are you able to care for yourself? 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 No [email or web address] Information not available 02/12/2023 What is your exercise level? Occasional [email or web address] Information not available 07/16/2021 Mental Status Question Answer Note LastModified by Organization D etails LastModified Time Do you feel stressed (tense, restless, nervous, or anxious, or unable to sleep at night)? [id number] Information not available 08/09/2022 Family History Relationship Description Onset Age of this Age Resolved Age Notes LastModified by Organization Details LastModified Time Father Diabetes mellitus [email or web address] Not available 01/21 17:15:14 Mother Diabetes mellitus [email or web address] Not available 01/21 17:15:14 Mother Hypoglycemia Not av ailable 08/20/2024 09:34:33 Maternal Uncle Hypoglycemia [email or web address] Not available 0 08/20/2024 09:34:33 Maternal Grandmother Hypoglycemia Not availab le 08/20/2024 09:34:33 Paternal Grandfather Alzheimer's disease [email or web address] Not available 08/10 09:34:33 Medical History Condition Response Other Y Blood Transfusion N Dermatologic Disorders N Gestational Diabetes Y Anxiety Disorder N Autoimmune disease Y Arthritis N Polyps N Infertility N Acid Reflux (GERD) N Cancer N Varicosities N Stroke N Neurologic/Epilepsy N Fibromyalgia N Headaches Y Kidney Disease N Heart Problems N Kidney or Bladder Problems N Eating Disorder N Art (IVF or FET) N Hepatitis/Liver Disease Y No Past Medical History N Urinary Tract Infection N Asthma N Trauma/Violence N Thrombophilias N Allergies (Food, seasonal, environmental ) Y Breast Cancer N Drug/Latex Allergies/Reactions Y Lung Disease N Defects or Inherited Disease N Breast Problem Y Hematologic disorders N Anesthesia Complications N History of STI N Deep Vein Thrombosis N Polycystic ovary syndrome N History of abnormal pap N Endometriosis N High Cholesterol N Thyroid Problems N GI Problems Y Anemia Y Psychiatric Illness N Ovarian Cancer N Diabetes Y Pulmonary (TB, Asthma) N Eczema Y Abuse/Domestic Violence N Depression/ depression N Heart Disease N Pre-Eclampsia N Hypertension N Osteoporosis N Gynecological History Statement/Question Response Date of Last Mammogram Flow Moderate Date of LMP 07/27/2024 N Was last menstrual period normal Y STIs/STDs N Other Desired Control Method Withdrawal On BCP's at Conception? N HPV Vaccine N Duration of Flow (days) 7 Current Control Method None Age at First Child 28 Are cycles usually normal Y Frequency of Cycle (Q days) 30 Sexually Active? Y Menses Monthly Y Date of DEXA bone scan Age of first menstrual cycle 14 Date of Last Pap Smear 07/19/2022 Sexual Problems? N LMP Definite N Obstetrics History GPAL:G 2 P 1 0 1 1 Type Value Full Term 1 Spontaneous 1 Living 1 Total 2 Past Encounters Encounter ID Performer Location Encounter Start Date Encounter Closed Date Diagnosis/Indication Diagnosis SNOMED-CT Code Diagnosis ICD10 Code Diagnosis Note [id number] Tucker Jones MD [facility] [address] [address] 06/29/2021 15:53:25 06/29/2021 17:49:32 Gynecologic examination 21645879 Z01.419 This patient is here for her [...] na Cholestero l - Pap - today [id number] GIULIANO [facility] [address] [address] 07/19/2022 13:33:08 07/19/2022 14:13:17 Gynecologic examination 13888163 Z01.419 Suggested Calcium with Vitamin D 1200-1500m g daily. Patient advised to get an annual flu shot in the fall and she could obtain at [facility] or [facility] care clinic. Also to obtain TDap vaccinatio n [...] PCP per pt 2022 Screening mammography 24 317585 Z12.31 Menorrhagia 974700570 N9 2.0 Heavy menses all her life.??Cer vical polyp on exam???Bar robin flush with ext OS but cervix friable with this present. Will update US [id number] Tucker Jones MD [facility] [address] [address] 07/03/2021 13:34:32 07/03/2021 14:33:30 Menorrhagia 200784304 N92.0 [id number] Tucker Jones MD [facility] [address] [address] 07/16/2021 09:27:30 07/16/2021 10:46:32 Menorrhagia 009528353 N92.0 Dysmenorrhea 502351020 N 94.6 this patient is a 40-year-ol [...] She will contact us to schedule that. [id number] Tucker Jones MD [facility] [address] [address] 07/26/2022 08:59:49 07/26/2022 09:45:43 Excessive and frequent menstruation 094129692 N92.0 [id number] Shanice Fenton , [facility] [address] [address] 08/09/2022 10:01:13 08/09/2022 12:40:25 Menorrhagia 360330912 N92.0 TVUS reviewed.F ibroids.De clines hormonal options & non-hormon al option of lysteda for heavy menses.Int erested in endometria l ablation.W ill need MD consult to ensure this is a good option for her based on US findings.A ll lab work wnlH/O given for home [facility]. Time spent in visit is a total of 15 mins with at least 50% of visit consisting of counseling and review of plan of care NOT including time spent on procedure. Polyp at cervical os 248 835661 N84.1 See procedure notes. [id number] Tucker Jones MD [facility] [address] [address] 01/21/2023 17:02:37 01/21/2023 18:32:26 Breast lump 58594498 N63.0 This patient is a 42-year-ol d [...] ce. More than 50% was counseling . [id number] Tucker Jones MD [facility] [address] [address] 02/12/2023 17:11:32 02/13/2023 09:03:47 Mass of chest wall 258440288 R22.2 42-year-ol d female with a benign-yadi [...] ce. More than 50% was counseling . [id number] GIULIANO Khan [facility] [address] [address] 08/20/2024 09:34:10 08/20/2024 11:55:29 Gynecologic examination 50342204 Z01.419 [facility] - declinedPa p - done todaySTI screen - gc/ct/tric h testing added to papMammogr am - order givenColon cancer screening - n/aRoutine labs - UTD/PCPRTC in 1 yr or sooner if needed Suggested Calcium with Vitamin D daily. Patient advised to get an annual flu shot in the fall and she could obtain at local pharmacy. Also to obtain TDap vaccinatio n if you have not had one in the last 10 years. Recommend yearly mammograms . Encouraged monthly self breast exams. Encourage safe sexual practices, to use condoms and limit partners if not already in a monogamous relationsh ip. Engage in regular exercise. Avoid tobacco and illicit drugs. This lifestyle behavior pattern will lead to less health conditions and longer life span. If BMI greater than 25 dietary consult advised. All questions have been answered. Screening mammography 24 723960 Z12.31 Venereal d isease screening 963834640 Z11.3 Health Concerns Section Related Observation LastModified by Organization Detai ls LastModified Time None Recorded Concern Status LastModified by Organization Details LastModified Time None Recorded Advance Directives Directive N: Payers Insurance Date Sequence Insurance Name Policy Number Policy Gao Covered Member ID Gao Member ID Guarantor Name 07/28/2024 1 [facility] [id number] Manohar Noyola [id number] Deisi Noyola 08/23/2024 1 [facility] [id number] Manohar Noyola [id number] Alan Noyola Notes Date Note Type Note Provider Name and Address Organization Details Recorded Time 08/09/2022 text/html Here today for review of US & removal of ext cervical polyp. Shanice Fenton, [facility] [address], [place], [address], [facility] 08/09/2022 12:34:26 01/21/2023 text/html This [...] maybe slightly flocculent. We spent 20 minutes phan-os-vuhu. More than 50% was counseling. Tucker Jones MD [address], [place], [address], [facility] 01/21/2023 18:11:55 02/12/2023 text/html 42-year-old [...] Discussed treatment. Discussed referral. Spent 20 minutes [id number]. More than 50% was counseling. Tucker Jones MD [address], [place], [address], [facility] 02/12/2023 17:40:29 08/20/2024 text/html Annual GYNReport ed bypatient.Menstrual cycle:Normal menses Urinary symptoms:No hematuria; No incontinence Vulva:No genital lesion Vagina:Normal vaginal discharge Breast:No breast pain; No breast lump; No nipple discharge Current Contraception:Satisf ied with current contraception; withdrawal Sexual complaints:No sexual complaints; No pain during intercourse; Normal libido Menopausal Symptoms:No menopausal symptoms; Normal vaginal lubrication Psychological symptoms:No depression; No anxiety; No PMDD Preventive measures:Encourage self breast examination; Encourage regular exercise; Encourage no tobacco use; Encourage regular mammograms starting age 41Notes:43yo wweBC - withdrawallast pap 2022 : nilm, HPV (-)no h/o abnormal papslast mammogram 02/2023 GIULIANO Khan [address], [place], [address], [facility] 08/20/2024 11:32:29 OBGyn Episode Ob Episode Information Episode Created Date Number of Fetuses Patient Bloodtype Patient rh Status Prepregnancy Weight lbs Domestic Partner Domestic Partner Phone Father Name Pot Filler Status 06/30/19 22 1 CLOSED Fetus Data First Name Last Name Admitted to NICU Weight (g) Sex Living Outcome Pediatric Complications Fetus ID Race Codes Race Delivery Type 3345.24 1 F Full Term [id number] Vaginal Delivery Kishor Calculation Initial Kishor Date [...] Post Complications Tubal Sterilization Discharge Date Comments 04/08/201 0 39 Evert umbilical cord knots/ GDM Discharge Information Feeding Method Contraceptive Method Maternal HG B and HCT Levels Ob Episode Information Episode Created Date Number of Fetuses Patient Bloodtype Patient rh Status Prepregnancy Weight lbs Domestic Partner Domestic Partner Phone Father Name Pot Filler Status 06/30/19 22 1 CLOSED Fetus Data First Name Last Name Admitted to NICU Weight (g) Sex Living Outcome Pediatric Complications Fetus ID Race Codes Race Delivery Type , Spontane ous [id number] Kishor Calculation Initial Kishor Date Initial Exam [...]
--- OUTSIDE RECORDS SUMMARY | 2024-08-25 02:17 | XMS_ITS | Referral Summary ---
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
--- OUTSIDE RECORDS SUMMARY | 2024-08-25 02:17 | XMS_ITS | Clinical Summary ---
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
--- OUTSIDE RECORDS SUMMARY | 2024-08-25 02:18 | XMS_ITS | Clinical Summary ---
Author Organization [facility] Address [address] [place] [address] Care Team Providers Care Bench Lay Out Technician Name Role Phone Unavailable Primary Care Provider Unavailabl e Source Comments [facility],non-owned Affiliates and Associated Physician Practices is amultiple site organization consisting of ambulatory clinics and hospital sitesin [place], [place], [place] and [place]. This disclosure is being madepursuant to the Care Everywhere program and may not contain all information available regarding this patient. 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 Gender Identity Not on file Sexual Orientation Not on file Last Filed Vital Signs Vital Sign Reading Time Taken Comments Blood Pressure 126/80 01/02/2019 11:37 AM TYPE ROLLING MACHINE OPERATOR Pulse 97 01/02/2019 11:37 AM TYPE ROLLING MACHINE OPERATOR Temperature 37.1 C (98.7 F) 01/02/2019 11:37 AM TYPE ROLLING MACHINE OPERATOR Respiratory Rate 16 01/02/2019 11:37 AM TYPE ROLLING MACHINE OPERATOR Oxygen Saturation 96% 01/02/2019 11:37 AM TYPE ROLLING MACHINE OPERATOR Inhaled Oxygen Concentration - - Weight 108.9 kg (240 lb) 01/02/2019 11:37 AM TYPE ROLLING MACHINE OPERATOR Height 167.6 cm (5' 6) 01/02/2019 11:37 AM TYPE ROLLING MACHINE OPERATOR Body Mass Index 38.74 01/02/2019 11:37 AM TYPE ROLLING MACHINE OPERATOR Plan of Treatment Health Maintenance Due Date Last Done Comments LIPID TESTING 1981 MAMMOGRAM 1981 HIV SCREENING 1996 HEPATITIS C SCREENING 11/04/1999 DTAP/TDAP/TD VACCINES (1 - Tdap) 2000 HEPATITIS B VACCINE (1 of 3 - 19+ 3-dose series) 2000 PAP SMEAR 2002 HPV VACCINE (1 - 3-dose SCDM series) 2008 COVID-19 VACCINE ( - 2023-2 5 season) 2023 DEPRESSION SCREENING 02/11/2024 INFLUENZA VACCINE (#1) 2024 11/19/2017 ZOSTER VACCINE (1 of 2) 11/09/2031 HIB [...] patient's age to complete this topic Insurance [facility] SELF PAY NO INSURANCE Member Subscriber Plan / Payer (Ef fective for All Dates) Name:Jocelyne Chapinlionel Member ID:Not on file Relation to Subscriber:Not on file Name:ALAN CHAPIN Subscriber ID:Not on file (Home) Address: [address] [place] [address] Payer ID:Not on file Group ID:Not on file Type:Self Pay Address: [place], [place]
--- NOTE | 2024-08-25 06:51 | WPDHPUPDATE1 ---
History and Physical Update Update Date/Time: 08/25/24 06:51 Patient seen and examined in pre-operative holding area. No interval change in medical history or symptoms. Patient recalls previous discussion of benefits and alternatives to procedure. Continues to desire to proceed with right endoscopic possible open carpal tunnel release and right cubital tunnel release. Reviewed procedure, post-op expectations and risks including but not limited to bleeding, infection, injury to tendon/nerve/vessel, decreased hand function, stiffness, RSD, no change or worsening of symptoms. I discussed the possible use of assistants and their participation in the case. Patient stated understanding and signed the consent form wishing to proceed.
--- NOTE | 2024-08-25 06:51 | W.PM.PROC2 ---
Procedure Note - Detailed Date of Procedure 08/25/24 Pre-op Diagnosis Garland carpal and cubital tunnel syn Post-op Diagnosis Same Procedure Performed right ectr and CuTR Surgeon Brittny Ren MD Tax Investigator wili garcia pa-c Anesthesia MAC Description of Procedure INFORMED CONSENT: The patient was seen and examined and marked in the pre-op area.? The patient signed the consent form. PROCEDURE IN DETAIL:The patient taken back to OR on the stretcher in supine position. Time out performed with anesthesia, surgeon and staff agreeing on patient's name site and surgery to be performed SCDs were placed on the lower extremities and inflated. A tourniquet was placed on {right} upper extremity and antibiotics given IV After anesthesia administered sedation I injected {10}cc 1%lido with epi and 0.5% marcaine plain at the operative sites The?{right upper extremity}?was prepped and draped in sterile fashion the??{right upper extremity} was? exsanguinated with Esmarch bandage and tourniquet inflated to 250mmHg I made a transverse incision in the {right} volar distal wrist crease through skin and dermis with 15 blade scalpel.? Littler scissors spread down to antebrachial fascia. A small incision was made in antebrachial fascia allowing access to Carpal tunnel. I proceeded with sequential dilation staying in line with the ring finger and hugging the hook of the hamate.? I then used the synovial elevator to free any adhesions from the underside of the transverse carpal ligament. Next I was able to insert the Microaire endoscopic carpal tunnel device with direct visualization of the transverse fibers on the monitor and proceeded with complete segmental retrograde release of the ligament in its entirety.? I irrigated with normal saline and closed with 4-0 monocryl for dermis and subcuticular closure. I next proceeded with making a longitudinal incision between two heads for flexor carpi ulnaris at end of {right} cubital tunnel with 15 blade scalpel.? Littler scissors were used to spread down to FCU fascia.? An incision was made in FCU fascia and ulnar nerve identified exiting cubital tunnel.? I proceeded with complete retrograde release of the cubital tunnel including 7cm proximal for the intermuscular septum.? The nerve appeared moderately atrophic and fatty in appearance but with visible vaso nervorum.? There was no subluxation on full elbow range of motion. ? I irrigated with normal saline and closure with 4-0 monocryl for dermis and subcuticular. The incisions were covered with Dermabond then 4x4s, erna, and a posterior elbow and volar wrist splint for patient safety, security and comfort and secured with abner bandages after the tourniquet was let down noting the hand was warm and well perfused.? Patient awaken from anesthesia and transferred to recovery in stable condition Complications - none EBL- 1cc Disposition - home in stable conditions wili garcia pa-c was [facility] for positioning, retraction, closure and dressing placement [facility] Billing Surgery - Charge Forward: Surgery Billing ([id number] same for wili adding )
[2024-08-25 11:59] VITALS: BP 130/73; PULSE 94; RESP 18; TEMP 36.6; O2SAT 98
[2024-08-25] MEDS: LACTATED RINGERS 1,000 ML 30 ML IV CONT (12:15)
[2024-08-25 12:25] LABS: BEDSIDEPREGUCG Negative (Negative)
[2024-08-25] MEDS: ACETAMINOPHEN 500 MG TABLET 1000 MG PO (12:27)
--- NOTE | 2024-08-25 13:54 | WPDANESEPPF ---
Anes - Initial Pre Proc Eval Procedure: Operation Date: 08/25/24 13:45 Proposed Procedures p Right Endoscopic Carpal Tunnel Release, Possible Open, Right Cubital Tunnel Release - Brittny Ren MD Date/Time: 08/25/24 13:54 Surgeon: Brittny Ren MD Pre Op Diagnosis: Garland carpal and cubital tunnel syn Patient Data Age: 43 Gender: F Height: 1.65 m Weight: 126 kg Last Vital Signs Temp 97.9 F 08/25/24 11:59 Pulse 94 08/25/24 11:59 Resp 18 08/25/24 11:59 BP 130/73 08/25/24 11:59 Pulse Ox 98 08/25/24 11:59 O2 Del Method Room Air 08/25/24 11:59 Allergies Allergy/AdvReac Type Severity Reaction Status Date / Time nickel Allergy Severe Swelling Verified 08/25/24 12:20 zinc Allergy Mild vomiting Verified 08/25/24 12:20 Corticosteroids Allergy Unknown Unknown Verified 08/25/24 12:20 (Glucocorticoids) latex AdvReac Mild Rash Verified 08/25/24 12:20 gluten AdvReac Unknown Unknown Verified 08/25/24 12:20 Milk Containing Products AdvReac Unknown Unknown Verified 08/25/24 12:20 (Dairy) shellfish derived AdvReac Unknown Unknown Verified 08/25/24 12:20 cortizone shot AdvReac Severe Numbness Uncoded 08/25/24 12:20 Home Medications ?Medication ?Instructions ?Recorded ?Confirmed ?Type albuterol sulfate 90 mcg/actuation 2 puff inhalation .Q4 hours PRN 05/01/24 08/16/24 Rx aerosol inhaler (Ventolin HFA) cough #18 grams cyclobenzaprine 10 mg tablet 10 mg PO HS 05/01/24 08/25/24 History ibuprofen 800 mg tablet 800 mg PO Q8H PRN migraine headache 05/01/24 08/16/24 History gabapentin 300 mg capsule 300 mg PO QID 07/06/24 08/25/24 History mims brew 1 cp PO HS 07/06/24 08/25/24 History magnesium carb,citrate,oxide 300 mg PO HS 07/09/24 08/25/24 History (Magnesium Complex) tramadol 50 mg tablet 50 mg PO Q6H PRN pain #12 tabs 08/25/24 Rx Laboratory Tests 08/25/24 12:24 POC Urine HCG, Qual Negative (Negative) Patient hx anesthesia problems: none Family hx anesthesia problems: none Results Review: All pre-operative results and documents have been reviewed as part of the pre-operative evaluation. [facility] Past Medical History Medical History Headache Ulnar neuropathy at elbow Bilateral carpal tunnel syndrome Surgical History Surgical History H/O cervical spine surgery Family History Family History Father Diabetes mellitus Mother Diabetes mellitus Other Family history of Alzheimer's disease Social History Social History Smoking status: Never smoker Alcohol intake: current Substance use: never Substance use type: does not use Do You Feel Safe in your Home?: Yes Lack of Transportation: No Lack of Food: Never True Current Housing: I Have Housing Concerned About Future Housing: No Difficulty Paying Gas/Electric Bills: No Difficulty Paying for Meds: No Currently Unemployed: No Education: Bachelor's Degree Difficulty w/ Childcare or Family Care: No Living arrangements: with family Spiritual care concerns: No Anes - Eval Final PreProcedure Day of Procedure 08/25/24 13:54 Patient weight: morbidly obese Lungs: normal air movement Airway: Mallampati scale class II and special considerations (Prev C spine fusion noted. ) Neurological: alert and oriented Last oral intake: >/= 8 hours ASA classification: III Emergent: no Anesthetic plan: proceed Anesthesia type and monitoring: general GIVS and standard monitoring Results Review: All pre-operative results and documents have been reviewed as part of the pre-operative evaluation. BMI 46. Informed Consent: The patient's anesthetic plan and its attendant risks and benefits were discussed with the patient/family/POA. Questions were solicited and answers provided to the satisfaction of the patient/family/POA.
[2024-08-25] MEDS: ceFAZolin 3 GM/D5W 100 ML 100 ML IVPB (14:10)
[2024-08-25] MEDS: LIDO 1%/EPINEPHRINE 1:100,000 20 ML VIAL 10 ML INFILTRATE (14:26)
[2024-08-25] MEDS: BUPivacaine HCL 0.5% 10 ML AMP INFILTRATE (14:27)
[2024-08-25 14:50] VITALS: BP 118/53; PULSE 90; RESP 14; O2SAT 97
[2024-08-25 15:20] VITALS: BP 114/77; PULSE 84; RESP 20
[2024-08-25 15:45] VITALS: BP 121/74; PULSE 81; RESP 20
== END 2024-08-25 15:50 | disposition home or self-care (01) ==
PROVIDERS: Physician Assistant Surgical; PCP Physician Assistant; Visit Provider Plastic Surgery
PROC: 01N54ZZ Release Median Nerve, Percutaneous Endoscopic Approach (ICD-10-PCS; CPT 29848; principal; 2024-08-25 13:45)
DX: G56.01 Carpal tunnel syndrome, right upper limb (principal); G56.21 Lesion of ulnar nerve, right upper limb; E66.01 Morbid (severe) obesity due to excess calories; Z68.42 Body mass index [BMI] 45.0-49.9, adult
CPT/HCPCS: 29848; 64718; A9270; J0690; J1100; J2003; J2004; J2250; J2405; J2704; J3010; J7120

== ENCOUNTER 2024-10-06 17:42 | Emergency (ER) | payer OTHER, SELFPAY ==
[2024-10-06 18:21] VITALS: BP 136/75; PULSE 87; RESP 16; TEMP 36.5; O2SAT 100
[2024-10-06 18:37] LABS: EDSTREPNEGPOS1 Negative (Negative)
--- NOTE | 2024-10-06 18:41 | ED.GENADULT ---
HPI - General Adult General Chief complaint: Upper Respiratory Infection Stated complaint: SORE THROAT Time Seen by Provider: 10/06/24 17:44 Source: patient Mode of arrival: ambulatory Limitations: no limitations History of Present Illness HPI narrative: Patient is a 43-year-old female presenting with complaint of urinary symptoms. Symptoms reported include nasal congestion, postnasal drip, rhinorrhea, sore throat. Symptoms began this morning. Reports her daughter had symptoms prior to onset of her symptoms. No treatment initiated prior to arrival. No additional complaints. Related Data Home Medications ?Medication ?Instructions ?Recorded ?Confirmed ?Last Taken ?Type cyclobenzaprine 10 mg tablet 10 mg PO HS 05/01/24 08/25/24 08/24/24 History gabapentin 300 mg capsule 300 mg PO QID 07/06/24 08/25/24 08/25/24 History magnesium carb,citrate,oxide 300 mg PO HS 07/09/24 08/25/24 08/20/24 History (Magnesium Complex) Allergies Allergy/AdvReac Type Severity Reaction Status Date / Time nickel Allergy Severe Swelling Verified 10/06/24 18:09 zinc Allergy Mild vomiting Verified 10/06/24 18:09 Corticosteroids Allergy Unknown Unknown Verified 10/06/24 18:09 (Glucocorticoids) latex AdvReac Mild Rash Verified 10/06/24 18:09 gluten AdvReac Unknown Unknown Verified 10/06/24 18:09 Milk Containing Products AdvReac Unknown Unknown Verified 10/06/24 18:09 (Dairy) shellfish derived AdvReac Unknown Unknown Verified 10/06/24 18:09 cortizone shot AdvReac Severe Numbness Uncoded 10/06/24 18:09 Review of Systems Review of Systems: CONSTITUTIONAL: Denies body aches, fever, chills, or sweats. EYES: Denies visual changes, redness, or discharge. ENT: Denies otalgia. CARDIOVASCULAR: Denies chest pain, palpitations, or edema. RESPIRATORY: Denies cough or dyspnea. GASTROINTESTINAL: Denies abdominal pain, nausea, vomiting, or diarrhea. GENITOURINARY: Denies dysuria or hematuria. SKIN: Denies rash, itching, or wounds. MUSCULOSKELETAL: Denies back pain, joint pain, or myalgia. NEUROLOGIC: Denies headache, numbness, tingling, or weakness. PSYCH: Denies depression or anxiety. All systems reviewed & are unremarkable except as noted in HPI and below PMFSH Past Medical History Medical History (Updated 10/06/24 @ 18:43 by Kendell Garcia APRN) Headache Ulnar neuropathy at elbow Bilateral carpal tunnel syndrome Surgical History Surgical History (Updated 09/16/24 @ 10:19 by Emma Corcoran) History of carpal tunnel release of both wrists & Cubital Tunnel Release - Garland (Lt: 07/14/24; Rt: 08/25/24) H/O cervical spine surgery Family History Family History Father Diabetes mellitus Mother Diabetes mellitus Other Family history of Alzheimer's disease Social History Social History (Updated 09/07/24 @ 08:42 by Shreya Birmingham) Social History: Caffeine-tea/coffee Smoking status: Never smoker Alcohol intake: current Substance use: never Substance use type: does not use Do You Feel Safe in your Home?: Yes Lack of Transportation: No Lack of Food: Never True Current Housing: I Have Housing Concerned About Future Housing: No Difficulty Paying Gas/Electric Bills: No Difficulty Paying for Meds: No Currently Unemployed: No Education: Bachelor's Degree Difficulty w/ Childcare or Family Care: No Living arrangements: with family Spiritual care concerns: No Exam Narrative: GENERAL: Well-appearing, Morbidly obese, well-nourished, and in no acute distress. HEAD: Normocephalic, atraumatic. EYES: EOMI. No redness or drainage. Conjunctivae normal. ENT: Mucous membranes pink and moist. Nares clear. No rhinorrhea. TMs normal bilaterally. Throat normal. Uvula midline. moderate amount of clear, postnasal drainage. NECK: Normal AROM. Supple. No lymphadenopathy. CHEST: No respiratory distress. Clear to auscultation. HEART: Regular rate and rhythm. No murmur appreciated. Normal peripheral pulses. ABDOMEN: Soft, nontender, nondistended, normal active bowel sounds. MUSCULOSKELETAL: No bony tenderness. EXTREMITIES: Normal range of motion. No edema. SKIN: Warm, dry, no rash. Capillary refill normal. Normal skin turgor. NEURO: No focal deficits. Alert and oriented x3. Gait steady. PSYCH: Normal affect. No signs of depression or anxiety. Course Course Level of Care: [facility] Care Visit Vital Signs Vital signs: Vital Signs Temperature 97.7 F 10/06/24 18:21 Pulse Rate 87 10/06/24 18:21 Respiratory Rate 16 10/06/24 18:21 Blood Pressure 136/75 10/06/24 18:21 Pulse Oximetry 100 10/06/24 18:21 Temperature 97.7 F 10/06/24 18:21 Pulse Rate 87 10/06/24 18:21 Respiratory Rate 16 10/06/24 18:21 Blood Pressure 136/75 10/06/24 18:21 Pulse Oximetry 100 10/06/24 18:21 Medical Decision Making MDM Narrative Medical decision making narrative: Discussed elevated blood pressure readings with patient and advised daily BP monitoring and f/u with PCP if persisting. Vital Signs Vital Signs: Vital Signs Temperature 97.7 F 10/06/24 18:21 Pulse Rate 87 10/06/24 18:21 Respiratory Rate 16 10/06/24 18:21 Blood Pressure 136/75 10/06/24 18:21 Pulse Oximetry 100 10/06/24 18:21 Temperature 97.7 F 10/06/24 18:21 Pulse Rate 87 10/06/24 18:21 Respiratory Rate 16 10/06/24 18:21 Blood Pressure 136/75 10/06/24 18:21 Pulse Oximetry 100 10/06/24 18:21 Lab Data Lab results reviewed: Yes I reviewed the patient's lab results. Labs: Lab Results 10/06/24 Range/Units 18:35 POC Grp A Strep Screen Negative (Negative) Discharge Plan Discharge Clinical Impression: Upper respiratory infection Qualifiers: URI type: acute nasopharyngitis (common cold) Qualified Code(s): J00 - Acute nasopharyngitis [common cold] Patient Disposition: Home Condition: Stable Instructions: Antibiotic Form, Cold Symptoms (ED) Additional Instructions: Go straight to ER should your symptoms become worse or should any new symptoms develop Patient Language: Khmer Prescriptions: No Action cyclobenzaprine 10 mg tablet 10 mg PO HS Patient Comments: Also takes as needed during day. albuterol sulfate [Ventolin HFA] 90 mcg/actuation HFA aerosol inhaler 2 puff INHALATION .Q4 hours PRN (Reason: cough) Qty: 18 0RF gabapentin 300 mg capsule 300 mg PO QID Magnesium Complex 300 mg magnesium tablet 300 mg PO HS tramadol 50 mg tablet 50 mg PO Q6H PRN (Reason: pain) Qty: 12 0RF Follow-up/Referrals: Ricardo,Keyon Dozier PA-C [Primary Care Provider] - 10/07/24 Time of Disposition: 18:43
== END 2024-10-06 18:45 | disposition home or self-care (01) ==
PROVIDERS: Emergency Provider Registered Nurse; PCP Physician Assistant
DX: J00 Acute nasopharyngitis [common cold] (principal)
CPT/HCPCS: 87880; 99212; G0463

== ENCOUNTER 2024-11-24 07:05 | Outpatient (CLI) | payer OTHER, SELFPAY ==
--- NOTE | ~2024-11-24 | MR_ITS ---
EXAMINATION: MR shoulder LT wo con DATE: 11/24/2024 08:08 INDICATION: Impingement syndrome of shoulder. TECHNIQUE: Magnetic resonance imaging (MRI) of the left shoulder was performed without intravenous contrast. Sequences included axial PD-weighted FS FSE, coronal oblique PD-weighted FS FSE and T2-weighted FS FSE, and sagittal oblique T2-weighted FS FSE and T1-weighted FSE. COMPARISON: None. FINDINGS: Coracoacromial arch: The acromion undersurface is flat in morphology (type I). There is moderate acromioclavicular joint osteoarthritis. There is mild subacromial/subdeltoid bursitis. Rotator cuff: There is moderate supraspinatus tendinopathy and mild infraspinatus tendinopathy. Teres minor tendon is normal. Subscapularis tendon is normal. There is mild fatty atrophy of subscapularis and infraspinatus muscle bellies. Biceps tendon and glenoid labrum: Biceps tendon is in bicipital groove. Intra-articular biceps tendon is normal. There is a tear of glenoid labrum from 11:00 to 12:00 (SLAP tear). Fluid: There is a small glenohumeral joint effusion. Bones/cartilage: Glenoid cartilage is normal. There is cartilage surface irregularity of humeral head. IMPRESSION: 1. Moderate rotator cuff tendinopathy. No tear. 2. Mild glenohumeral joint chondrosis. SLAP tear. 3. Moderate acromioclavicular joint osteoarthritis. 4. Small glenohumeral joint effusion. 5. Mild subacromial/subdeltoid bursitis. Reviewed, dictated and finalized at location E.
--- NOTE | ~2024-11-24 | MR_ITS ---
EXAMINATION: MR shoulder RT wo con DATE: 11/24/2024 07:53 INDICATION: Impingement syndrome of right shoulder. TECHNIQUE: Magnetic resonance imaging (MRI) of the right shoulder was performed without intravenous contrast. Sequences included axial PD-weighted FS FSE, coronal oblique PD-weighted FS FSE and T2-weighted FS FSE, and sagittal oblique T2-weighted FS FSE and T1-weighted FSE. COMPARISON: Right shoulder MRI 11/22/2017 FINDINGS: Coracoacromial arch: The acromion undersurface is flat in morphology (type I). There is severe acromioclavicular joint osteoarthritis including inferiorly directed osteophytes. There is mild subacromial/subdeltoid bursitis. Rotator cuff: There is mild supraspinatus and infraspinatus tendinopathy. Teres minor tendon is normal. There is mild subscapularis tendinopathy. No tear. There is no asymmetric fatty atrophy of the rotator cuff muscle bellies. Biceps tendon and glenoid labrum: Biceps tendon is in bicipital groove. Intra-articular biceps tendon is normal. The glenoid labrum is normal. Fluid: There is a small glenohumeral joint effusion. Bones/cartilage: The glenoid cartilage is normal. There is shallow partial-thickness cartilage loss of the humeral head. IMPRESSION: 1. Mild rotator cuff tendinopathy. No tear. 2. Mild glenohumeral joint chondrosis. 3. Severe acromioclavicular joint osteoarthritis. 4. Small glenohumeral joint effusion. 5. Mild subacromial/subdeltoid bursitis. Reviewed, dictated and finalized at location E.
== END 2024-11-24 07:06 | disposition home or self-care (01) ==
LOC: MICIMG 07:06
PROVIDERS: PCP Physician Assistant; Visit Provider Orthopaedic Surgery
DX: M75.41 Impingement syndrome of right shoulder (principal); M75.42 Impingement syndrome of left shoulder
CPT/HCPCS: 73221

== ENCOUNTER 2024-12-01 09:03 | Outpatient (CLI) | payer OTHER, SELFPAY ==
--- NOTE | ~2024-12-01 | MM_ITS ---
EXAMINATION: screening [facility] BI w shivani INDICATION: Asymptomatic, referred for screening mammogram COMPARISON: 02/11/2023 through 11/05/2016 TECHNIQUE: Digital Breast Tomosynthesis CC, MLO views of Both breasts were obtained with computer-aided detection to assist in interpretation of the study. FINDINGS: There are scattered areas of fibroglandular density. There is a mass with partially obscured margins that has changed in the superior central right breast at anterior third. Additional parallel orientated mass is seen in the superior central right breast at middle depth. Elsewhere, there are no mammographic features of malignancy. IMPRESSION: 1. Right breast masses. 2. No evidence of malignancy in the Left breast. RECOMMENDATION: Right breast Diagnostic mammogram with true lateral, appropriate spot compression views and an ultrasound. BI-RADS Category 0: Incomplete: Needs additional imaging evaluation. Reviewed, dictated and finalized at location B. IMPRESSION: 1. Right breast masses. 2. No evidence of malignancy in the Left breast. RECOMMENDATION: Right breast Diagnostic mammogram with true lateral, appropriate spot compressi on views and an ultrasound. BI-RADS Category 0: Incomplete: Needs additional imaging evaluation.
--- OUTSIDE RECORDS SUMMARY | 2024-12-01 09:53 | XMS_ITS ---
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 Last Documented On 1 11:22AM ; [facility] Assessments Includes: Assessments for all patient encounters Findings Encounter Date Cervicalgia PAIN MANAGEMENT NEW CONSULT with MARY SHANKS MD 12/07/2019 Last Documented On 0 8:08AM ; [facility] Cervicothoracic spinal enthesopathy PAIN MANAGEMENT NEW CONSULT with MARY SHANKS MD 12/07/2019 Last Documented On 0 8:08AM ; [facility] Cervicothoracic spondylosis PAIN MANAGEM ENT NEW CONSULT with MARY SHANKS MD 12/07/2019 Last Documented On 0 8:08AM ; [facility] Myalgia and myositis of righ t shoulder region PAIN MANAGEMENT NEW CONSULT with MARY SHANKS MD 12/07/2019 Last Documented On 0 8:08AM ; [facility] Myalgia of head and neck PAIN MANAGEMENT NEW CONSULT with MARY SHANKS MD 12/07/2019 Last Documented On 0 8:08AM ; [facility] Pain in thoracic spine PAIN MANAGEMENT NEW CONSU LT with MARY SHANKS MD 12/07/2019 Last Documented On 0 8:08AM ; [facility] Primary dystonia sporadic PAIN MANAGEMEN T NEW CONSULT with MARY SHANKS MD 12/07/2019 Last Documented On 0 8:08AM ; [facility] Thoracic spondylosis PAIN MANAGEMENT NEW CONSULT with MARY SHANKS MD 12/07/2019 Last Documented On 0 8:08AM ; [facility] Medical Equipment - Implanted Devices Includes: Current and historical Devices No Medical Equipment Recorded Medications Includes: Current and historical Medications Current Medications (continue as prescribed) Ibuprofen 200 MG Oral Tablet 12/07/2019 Provider: Diagnosis: Last Documented On 0 2:09PM By Alka Whittington RN ; [facility] Medications Administered Includes: Administered Medications in patient's chart No Administered Medications Recorded Results Includes: Results from 12/02/2023 through 12/01/2024 No Results Recorded For Specified Dates History of Present Illness History of Present Illness not supported for this document type No History of Present Illness Recorded Social History Description Last Updated No consumption of alcohol 12/07/2019 Last Documented On 0 8:08AM ; [facility] Non-smoker 12/07/2019 Last Documented On 0 8:08AM ; [facility] Not using drugs 12/07/2019 Last Documented On 0 8:08AM ; [facility] Smoking Status Unknown Medical History Includes: Medical History in patient's chart Description Last Updated Previously 1 time(s) LMP 0 12/07/2019 Last Documented On 0 8:08AM ; [facility] Previous hospitalizations labor and deli very- 05/18/09 12/07/2019 Last Documented On 0 8:08AM ; [facility] fibrocystic breast syndrome; hypoglycemi a 12/07/2019 Last Documented On 0 8:08AM ; [facility] No previous psychiatric treatment 2019 Last Documented On 0 8:08AM ; [facility] Family History Includes: Family History in patient's chart No Family History Recorded Review of Systems Review of Systems not supported for this document type No Review of Systems Recorded Mental Status No Mental Status Recorded Functional Status No Functional Status Recorded Physical Exam Physical Exam not supported for this document type No Physical Exam Recorded Allergies Includes: Active, inactive, and resolved Allergies Substance Type Reaction Onset Date Resolved Date Statu s Zinc Allergy 12/07/2019 Active Last Documented On 0 2:36PM ; [facility] Insurance Includes: Active Insurance Policies Plan Name Member ID Group # Subscriber Relationship Effect abel Dates 1 - [facility] [id number] ALEXANDR CHAPIN Self Clinical Notes Includes: Signed Clinical Notes starting from 03/01/2022 No Clinical Notes Recorded
--- OUTSIDE RECORDS SUMMARY | 2024-12-01 09:53 | XMS_ITS ---
Care Plan - [facility] Created on: December 01, 2024 ALEXANDR CHAPIN : 1980 Sex: Female Author Organization [facility] Address [address] [place] [address] Phone Care Team Providers Care Concrete Tester Name Role Phone HORTENCIA HOUGH, DAVID Reddy Primary Care Provider [phone] DONTA JOHNSON, KEVEN Marsh
--- OUTSIDE RECORDS SUMMARY | 2024-12-01 09:53 | XMS_ITS | Clinical Summary ---
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
--- OUTSIDE RECORDS SUMMARY | 2024-12-01 09:54 | XMS_ITS | Data Portability ---
Author Organization [facility] Address [address] [place] [address] Assessment No assessment recorded. Plan of Treatment Reminders Order Date Submit Date Provider Last Modified By Organization Details Last Modified Time Details Appointments ANY 15 2024 11:15A EMELYN Eugene Not available Not available Not available Lab urinalys is complete , reflex culture 2023 024 [facility], [address], [place], [address], 09/29/2023 17:20:22 CBC w/ auto diff 2023 024 [facility], [address], [place], [address], 09/29/2023 17:20:21 CMP, serum or plasma 2023 024 [facility], [address], [place], [address], 09/29/2023 17:20:21 Referral orthoped ic surgeon referral - bilat shoulder pain 2024 025 warren White MD, [address] [facility] [address], [place], [address], 09/15/2024 08:38:02 Procedures None recorded . Surgeries None recorded . Imaging XR, shoulder , 2 or more view - pain in both shoulder s 2024 025 [facility] ([facility]), [address] [place], [address], 09/15/2024 13:33:36 XR, chest, 2 view 2023 024 [email or web address] Not available 12/09/2023 08:50:25 electroc ardiogra m 2023 024 [email or web address] In-Office Order, Internal Use Only DO Not Attach Compendium DO Not Attach Compendium, Do Not Delete/merge, [id number] 09/19/2023 00:56:28 Medication Orders gabapent in 300 mg capsule 2024 025 [facility] [place], [address], 06/28/2024 12:19:30 cycloben zaprine 10 mg tablet 2024 025 [facility] [address] [place], [address], 03/29/2024 08:38:07 gabapent in 300 mg capsule 2024 025 [facility] [address] [place], [address], 03/29/2024 08:40:03 Patient TargetsNo targets recorded. Patient Instructions Encounter Date Encounter Id Patient Instructions Last Modified By Organization Details Last Modified Time 03/29/2024 [id number] A healthy lifestyle: care instructions [email or web address] Not available 03/29/2024 08:37:58 06/28/2024 [id number] A healthy lifestyle: care instructions [email or web address] Not available 06/28/2024 12:19:21 Reason for Referral Orthopedic Surgeon Referral for Bilateral chronic pain of upper limbs bilat shoulder pain Referring Physician: Keyon Silva, Family Medicine, Encounter Date: 09/15/2024 Results Created Date Observation Date Name Description Value Unit Range Abnormal Flag Note LastModifiedBy Organization Detail LastModifiedTime 09/17/1909/22/2023 juan song am No observ ation record ed. WILEY In-Office Order Internal Use Only DO Not Attach Compendium DO Not Attach Compendium, Do Not Delete/merge, [id number] 09/23/2023 08:39:18 10/07/19 24 10/07/2023 elect mary ann diogr am No observ ation record ed. WILEY In-Office Order Internal Use Only DO Not Attach Compendium DO Not Attach Compendium, Do Not Delete/merge, [id number] 10/07/2023 10:22:33 10/07/19 24 09/17/2023 elect rocar diogr am No observ ation record ed. WILEY In-Office Order Internal Use Only DO Not Attach Compendium DO Not Attach Compendium, Do Not Delete/merge, [id number] 10/07/2023 10:28:03 09/16/19 25 09/15/2024 XR, shoul ansley, 2 or more view No observ ation record ed. [address], [address], 09/15/2024 13:38:34 09/16/19 25 09/15/2024 XR, shoul ansley, 2 or more view No observ ation record ed. [facility] [address] [place], [address], 09/15/2024 13:38:34 11/27/19 25 11/24/2024 imagi ng/di agnos tic resul t No observ ation record ed. [email or web address] [facility] [address], [place], [address], 11/28/2024 15:41:11 Result Notes None recorded. Problems Name Problem SNOMED Code Status Onset Date Resolution Date Notes Provider Name and Address Organization Details Recorded Time Migraine 63464303 Active 2024 EMELYN Hoff Attn: Alondra g,[address] [facility], [place], [address], [facility] - [place] 07:30:53 Chronic neck pain 8113754897549 Active 2024 EMELYN Hoff Attn: Alondra gamble,[address] [facility] [facility], [place], [address], [place] - [facility] 5 07:30:54 Bilateral carpal tunnel syndrome 05591090969651 101 Active 2024 EMELYN Hoff Attn: Alondra gamble,[address] [facility] [facility], [place], [address], [place] - [facility] 5 12:23:12 Notes:Some problems listed i n Document: #[id number] could not be added to this patient's chart. Please review this document and add these problems to the patient's chart manually as needed. Problem Notes None recorded. Procedures Surgical History Date Name Laterality Status Provider Name and Address Organization Details Recorded Time 4 excision of mass completed [facility] 09/17/2023 16:38:56 8 removal of mole of skin by excision completed [facility] 09/17/2023 16:39:25 0 epidural anesthesia completed [facility] 09/17/2023 16:39:38 Imaging Results None recorded. Procedure Notes None recorded. Medical Equipment None Reported. Allergies Allergen ID Allergen Name Allergen Category Reaction Reaction Severity Criticality Documentation Date Start Date Code Code System Note Provider Name and Address Organization Details Recorded Time 334640 Product containin g glucocort icoid (product) medicatio n anaphylax is severe high 09/15/[address] Chavez LPN null, [place] - [facility] 4 16:46:21 019807 cortisone medicatio n arthralgi a (joint pain) myalgias (muscle pain) other Not available Not available Not available high 09/15/20232022 2878 RxNorm [place], [place] null, [place] - [facility] 5 12:07:11 545078 Milk (substanc e) food,medi cation vomiting severe high 09/15/[address] Ch[address] LPN null, [place] - [facility] 4 16:47:17 890019 blue dye medicatio n rash mild low 09/15/2023 Arielle Chavez LPN [place], [place] - [facility] 4 16:47:57 393665 wheat gluten extract food swelling Not available high 09/15/20232021 49010 81 RxNorm unrec ogniz ed react ion (text : Stoma ch upset , code: [id number]) (from exter nal sourc e) [place], [place] null, [place] - [facility] 5 12:07:18 076847 latex environme nt,medica tion rash Not available high 09/15/20232010 32052 91 [facility] [place], [place], [place] - [facility] 5 12:07:22 590662 zinc environme nt,medica tion rash Not available high 09/15/20232008 56184 RxNorm [place], [place], [place] - [facility] 5 12:07:35 219817 bupivacai ne medicatio n Not available Not available unabletoasse 09/15/2023 1815 RxNorm Arielle Chavez LPN [place], [place] - [facility] 4 16:49:40 337385 lidocaine medicatio n Not available Not available unabletoasse 09/15/2023 6387 RxNorm Arielle Chavez LPN [place], [place] - [facility] 4 16:49:54 839161 dexametha sone medicatio n Not available Not available unabletoasse 09/15/2023 3264 RxNorm Arielle Chavez LPN [place], [place] - [facility] 4 16:50:12 224043 shellfish derived food,medi cation Not available Not available unabletoasse 09/15/2023 Arielle Chavez LPN [place], [place] - [facility] 4 16:50:24 638970 triamcino lone medicatio n Not available Not available unabletoasse 09/15/2023 96723 RxNorm Arielle Chavez LPN [place], [place] - [facility] 4 16:50:40 817811 nickel environme nt Not available Not available Not available 10/01/2023 04216 29 RxNorm [place], [place], [place] - [facility] 4 14:23:27 398452 Duocaine medicatio n Not available Not available Not available 06/28/20242023 54487 9 RxNorm unrec ogniz ed react ion (text : Unkno wn, code: 87732 5006) (from [facility]) [place], [place], [place] - [facility] 5 12:07:14 548408 Shellfish (substanc e) food,medi cation Not available Not available Not available 06/28/20242021 47165 9006 SNOMED unrec ogniz ed react ion (text : Unkno wn, code: 80234 5006) (from [facility] sourc e) [place], [place], [place] [facility] 5 12:07:29 Medications Name Sig Start [...] No t Available ibuprofen 800 mg tablet TAKE 1 TABLET BY MOUTH THREE TIMES DAILY active Not Available Not Available No t Available benzonatate 200 mg capsule TAKE 1 CAPSULE BY MOUTH THREE TIMES DAILY NEEDED FOR COUGH FOR 10 DAYS 09/15 completed Not Available Not Available Not Available hydrocodone 5 mg-acetamin ophen 325 mg tablet TAKE 1 TABLET BY MOUTH EVERY 6 HOURS NEEDED FOR PAIN 09/15 completed Not Available Not Available Not Available clobetasol 0.05 % topical cream APPLY A THIN LAYER TO THE AFFECTED AREA(S) TWICE DAILY. 09/15 completed Not Available Not Available Not Available topiramate 25 mg tablet TAKE 1 TABLET BY MOUTH TWICE DAILY 09/15 completed Not Available Not Available Not Available sulfamethox azole 800 mg-trimetho prim 160 mg tablet TAKE 1 TABLET BY MOUTH TWICE DAILY FOR 5 DAYS 09/15 completed Not Available Not Available Not Available tramadol 50 mg tablet TAKE 1 TABLET BY MOUTH EVERY 6 HOURS NEEDED FOR PAIN active Not Available Not Available No t Available lidocaine 5 % topical patch APPLY 1 TOPICALLY ONCE DAILY, LEAVE ON FOR 12 HOURS AT A TIME active Not Available Not Available No t Available gabapentin 300 mg capsule TAKE ONE CAPSULE BY MOUTH IN THE MORNING, ONE AT LUNCH, ONE AT DINNER, AND TWO AT NIGHT active Not Available Not Available No t Available albuterol sulfate HFA 90 mcg/actuati on aerosol inhaler INHALE 2 PUFFS BY MOUTH EVERY 4 HOURS NEEDED FOR COUGH active Not Available Not Available No t Available phentermine 37.5 mg capsule Take 1 capsule every day by oral route. 09/15 completed Not Available Not Available Not Available [...] Updated DateTime 5 167.64 cm 43.4 kg/m2 798549. 35 g 98 % 98 % 96 /min 118/78 mm[Hg] Jazmine Chavez LPN [facility] 5 08:29:43 Date Recorded Body height Body mass index (BMI) Body weight Oxygen saturation Oxygen saturation in Arterial blood by Pulse oximetry Heart rate Systolic And Diastolic Provider Name and Address Organization Details Last Updated DateTime 5 165.1 cm 46 kg/m2 427917. 54 g 99 % 99 % 83 /min 114/72 mm[Hg] [facility] 5 12:10:26 Date Recorded Body height Body mass index (BMI) Body weight Oxygen saturation Oxygen saturation in Arterial blood by Pulse oximetry Heart rate Systolic And Diastolic Provider Name and Address Organization Details Last Updated DateTime 5 165.1 cm 47 kg/m2 336379. 8 g 98 % 98 % 81 /min 126/78 mm[Hg] Jazmine Chavez LPN [facility] 5 08:17:41 Date Recorded Body height Body mass index (BMI) Body weight Oxygen saturation Oxygen saturation in Arterial blood by Pulse oximetry Heart rate Provider Name and Address Organization Details Last Updated DateTime 4 167.64 cm 39.7 kg/m2 528743. 77 g 99 % 99 % 97 /min [facility] 4 16:35:34 Social History Question Answer Notes LastModified by [employer] Details LastModified Time Tobacco Smoking Status Never Smoker [place], [place] null, [facility] 09/17/2023 16:38:11 What Is Your Level Of Caffeine Consumption? Occasional Information not available 09/17/2023 What Was The Date Of Your Most Recent Tobacco Screening? 09/15/2024 [email or web address] Information not available 09/15/2024 Sex: Female Functional Status Question Answer Note LastModified by [employer] Details LastModified Time Do you use any [...] Response Coronary Artery Disease N Other N High Blood Pressure N Atrial Fibrillation N Thyroid Problems N Kidney or Bladder Problems N GI Problems N Depression N COPD N Blood Clots N Have you had a mammogram in the last yea r? Y Skin Problems N Eating Disorder N Anemia N Heart Attack ([place]) N Anxiety Disorder N Diabetes N Muscle, Joint, or Bone Problems N Arthritis N Seizures/Epilepsy N Have you had a colonoscopy in the last 1 0 years? N Acid Reflux (GERD) N Cancer N Stroke N Asthma N Allergies N Have you had a PSA blood test in the las t year? N ADHD N Substance Abuse N High Cholesterol N Hepatitis N Liver Disease N Schizophrenia N Headaches Y Heart Failure N Osteoporosis N Gynecological HistoryNo gynecological history recorded. Obstetrics History GPAL:G 0 P 0 0 0 0 Immunizations Vaccine Type Date Status Note Provider Nam e and Address Organization Details Recorded Time Influenza, split virus, trivalent, preservative 3 completed Not Available [facility] 09/15/2024 08:04:16 Influenza, split virus, trivalent, PF 6 completed Not Available [facility] 09/15/2024 08:04:16 Influenza, split virus, quadrivalent, PF 7 completed Not Available [facility] 09/15/2024 08:04:16 Past Encounters Encounter ID Performer Location Encounter Start Date Encounter Closed Date Diagnosis/Indication Diagnosis SNOMED-CT Code Diagnosis ICD10 Code Diagnosis IMO Codes Diagnosis Note [id number] Tony Hudson DO [facility] [place] [address] [address] 09/17/2023 15:56:53 09/25/2023 18:20:52 Adult health examination 881274212 Z00.00 Healthy diet and exercise, HCM as discussed Migraine 89666196 G43.90 9 Hydration, meds as discussed, call for s/s as discussed Neck pain 20113369 M54.2 scheduled for surgery, doing pre-op, if pre-op is NL will clear for srugery Pre-surger y evaluation 042501750 Z01.818 patient mentions metal testing, we will get further guidence from surgeon [id number] Tony Hudson DO [facility] [place] [address] [address] 03/29/2024 08:10:25 04/01/2024 09:43:23 History of cervical spine fusion 7455300133 101 Z98.1 now doing fine, using neurontin and going to PT and chiropract or 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 0422732978 7107 M79.2 on gabapentin , having surgery for carpel tunnel and cubital tunnel surgery Morbid obesity 392640111 E66.01 [id number] Tony Hudson DO [facility] [place] [address] [address] [place] [address] 06/28/2024 11:51:08 06/29/2024 10:18:51 Chronic neck pain 6306567051 107 M54.2 G89.29 [id number] Had surgery and healing well, has appt in Oct Migraine 03079316 G43.90 9 69890 Hydration, meds as discussed, call for s/s as discussed Obese class III 46875077 5 E66.813 2143081813 HIV screen ing declined 6041122632 92139 Z53.20 4383191004 History of cervical spine fusion 7863666350 101 Z98.1 now doing fine, using neurontin but we are trying to decrease dosage and going to PT and chiropract or Bilateral carpal tunnel syndrome 7646170356 9527603 G56.03 730564 also cubital tunnel and is scheduled for surgery on both bilateral [id number] Tony Hudson, DO [facility] [place] [address] [address] 09/15/2024 08:03:17 09/16/2024 10:52:47 Chronic neck pain 7527004999 107 M54.2 G89.29 [id number] Had surgery and healing well, has appt in Oct Migraine 91111169 G43.90 9 68258 Hydration, meds as discussed, call for s/s as discussed History of cervical spine fusion 8576315628 101 Z98.1 now doing fine, using neurontin but we are trying to decrease dosage and going to PT and chiropract or Bilateral carpal tunnel syndrome 7064322569 7885013 G56.03 256773 had surgery and oding much better Bilateral chronic pain of upper limbs 9652977984 9693003 M25.511 M25.512 G89.29 [id number] x-rays ordered and consult to ortho Health Concerns Section Related Observation LastModified by Organization Detai ls LastModified Time None Recorded Concern Status LastModified by Organization Details LastModified Time None Recorded Advance Directives Directive None Recorded Payers Insurance Date Sequence Insurance Name Policy Number Policy Gao Covered Member ID Ago Member ID Guarantor Name 03/29/2024 1 [employer] (PPO) [id number] Manohar Noyola [id number] Alan Noyola 06/29/2024 1 [facility] Manohar Noyola [id number] Alan Noyola 09/12/2024 1 [facility] [id number] Manohar Noyola [id number] Alan Noyola Notes Date Note Type Note Provider Name and Address Organization Details Recorded Time 4 text/html New Patient is in for routine PE and follow-up for the following medical conditions labs and medications.Patient in for the followingDiagnoses and all orders for this visit:Routine general medical examination at a health care facility (Primary)-irt-uqwpwa-Bf ercise:yes but needs more-colonoscopy: No FMHX-flu: Declined-Covid [...] (HCC)-working on weight loss Arielle Chavez LPN [facility], [place] - [facility] 10/07/2023 10:17:53 5 text/html New Patient is in to discuss medication Diagnoses and all orders for this visit:Routine general medical examination at a health care facility (Primary)-xqe-fxxyqc-Vx ercise:yes but needs more-colonoscopy: No FMHX-flu: Declined-Covid [...] (BMI) of 45.0 to 49.9 in adult ([facility])-working on weight loss EMELYN Hoff Attn: Accounting,[address] [place], [address], [facility] 03/29/2024 08:40:12 5 text/html ROS as noted in the HPI Patient is in for routine follow up for the following medical wxjrvjsurx-nir-wwohrs-E xercise:yes but needs more-colonoscopy: No FMHX-flu: Declined-Covid [...] (BMI) of 45.0 to 49.9 in adult ([facility])-working on weight loss EMELYN Hoff Attn: Accounting[address] [place], [address], [facility] 06/28/2024 13:06:34 5 text/html ROS as noted in the HPI Patient is in for routine follow up for the following medical wrzrtexaxx-gwj-dsjqua-E xercise:yes but needs more-colonoscopy: No FMHX-flu: Declined-Covid [...] and august 25, using very little tramadol now pending bilateral shoulder surgery -Denies any CP, SOB, palpitations, no general [...] weight loss EMELYN Hoff Attn: Accounting[address] [place], [address], [facility] - [facility] 09/15/2024 08:37:58 OBGyn Episode No OBEpisode recorded.
--- OUTSIDE RECORDS SUMMARY | 2024-12-01 09:54 | XMS_ITS | Clinical Summary ---
Author Organization [facility] Address [address] [place] [id number] Care Team Providers Care Hostess Host Name Role Phone Renzo Silva PA-C Primary Care Provider [phone] Encounters Date Type Department Care Team Description 09/15/2024 7:45 AM CDT - 09/15/2024 11:59 PM CDT Hospital Encounter [facility] Diagnostic [facility] [address] [address] Renzo Silva PA-C Discharge Disposition: Home or Self Care (Routine Discharge) 09/15/2024 Travel from Last 3 Months Social History Tobacco Use Types Packs/Day Years Used Date Smoking Tobacco: Never Assessed Comments Unknown Sex and Gender Information Value Date Recorded Sex Assigned at Female 09/15/2024 7:48 AM CDT Legal Sex Female 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 Gender Identity Not on file Sexual Orientation Not on file Plan of Treatment Health Maintenance Due Date Last Done Comments Annual Physical 1984 Hepatitis C 11/09/1999 DTaP, Tdap and Td Vaccines (1 - Tdap) 2000 Hepatitis B Vaccines (1 of 3 - 19+ 3-dose series) 2000 HPV Vaccines (1 - 3-dose SCDM series) 2008 Mammogram Screening 2021 COVID-19 Vaccine ( season) 2024 Influenza Adult (#1) 2024 11/25/2018, 11/19/2017, 11/14/2016, Additional history exists Cervical Cancer Screening Pap Smear (Age 30 to 64) Every 3 Years 08/21/2027 08/20/2024, 08/20/2024, 07/19/2022 Cervical Cancer Screening Pap with HPV Testing (Age 30 to 64) Every 5 Years 08/20/2029 08/20/2024 Cervical Cancer Screening with HPV 08/20/2029 Hepatitis A Vaccines Aged Out No long er eligible based on patient's age to complete this topic Meningococcal B Vaccine Aged Out No l onger eligible based on patient's age to complete this topic Meningococcal Vaccine Aged Out No isidoro jose j eligible based on patient's age to complete this topic Pneumococcal Vaccine: Pediatrics (0 to 5 Years) and At-Risk Patients (6 to 49 Years) Aged Out No longer eligible based on patient's age to complete this topic RSV Immunizations Under 20 Months Aged Out No longer eligible based on patient's age to complete this topic Procedures Procedure Name Priority Date/Time Associated Diagnosis Comments XR SHOULDER LT 3V Routine 09/15/2024 8:1 3 AM CDT Pain in left shoulder Other chronic pain XR SHOULDER RT 3V Routine 09/15/2024 8:1 3 AM CDT Pain in left shoulder Other chronic pain from Last 3 Months Results * XR SHOULDER RT 3V (09/15/2024 8:13 AM CDT) Anatomical Region Laterality Modality Shoulder Radiographic Sadia ging 09/15/2024 8:28 AM CDT Impressions 09/15/2024 12:30 PM CDT IMPRESSION: 1. No acute osseous or articular abnormalities. The attending radiologist has reviewed the image(s) and agrees with the content of this report. Ordered By: RENZO SILVA Interpreted By: Vikki Boyce MD, 09/15/2024 8:28 AM Narrative 09/15/2024 12:30 PM CDT [facility] [place] [address] XR SHOULDER RT 3V: 09/15/2024 7:52 AM CLINICAL INDICATION: Both left and right shoulder pain. Unable to lift anything above chest level. COMPARISON: None TECHNIQUE: AP internal rotation, Grashey, Y scapular views of the right shoulder FINDINGS: The distal clavicle, scapula, and proximal humerus are intact. Glenohumeral and acromioclavicular alignment appear normal. There is no acute fracture or dislocation of the shoulder. No destructive or sclerotic bony lesions are identified. Procedure Note Khang Justice MD - 09/15/2024 [facility] Imaging [facility] - [address] [facility] [address] XR SHOULDER RT 3V: 09/15/2024 7:52 AM CLINICAL INDICATION: Both left and right shoulder pain. Unable to liftanything above chest level. COMPARISON: None TECHNIQUE: AP internal rotation, Grashey, Y scapular views of the rightshoulder FINDINGS: The distal clavicle, scapula, and proximal humerus are intact.Glenohumeral and acromioclavicular alignment appear normal. There is noacute fracture or dislocation of the shoulder. No destructive or scleroticbony lesions are identified. IMPRESSION: 1. No acute osseous or articular abnormalities. The attending radiologist has reviewed the image(s) and agrees with thecontent of this report. Ordered By: RENZO SILVA Interpreted By: Vikki Boyce MD, 09/15/2024 8:28 AM Renzo Silva PA-C GENERAL IMAGING Final Result * XR SHOULDER LT 3V (09/15/2024 8:13 AM CDT) Anatomical Region Laterality Modality Shoulder Radiographic Sadia ging 09/15/2024 8:20 AM CDT Impressions 09/15/2024 12:30 PM CDT IMPRESSION: 1. No acute osseous or articular abnormalities. The attending radiologist has reviewed the image(s) and agrees with the content of this report. Ordered By: RENZO SILVA Interpreted By: Vikki Boyce MD, 09/15/2024 8:20 AM Narrative 09/15/2024 12:30 PM CDT [facility] Imaging [place] - [address] [address] XR SHOULDER LT 3V: 09/15/2024 7:52 AM CLINICAL INDICATION: Pain in both left and right shoulder. Unable to lift above chest level. COMPARISON: None TECHNIQUE: Grashey, AP internal rotation, Y scapular views of the left shoulder FINDINGS: The distal clavicle, scapula, and proximal humerus are intact. Glenohumeral and acromioclavicular alignment appear normal. There is no acute fracture or dislocation of the shoulder. No destructive or sclerotic bony lesions are identified. Procedure Note Khang Justice MD - 09/15/2024 [facility] - [address] [address] XR SHOULDER LT 3V: 09/15/2024 7:52 AM CLINICAL INDICATION: Pain in both left and right shoulder. Unable to liftabove chest level. COMPARISON: None TECHNIQUE: Grashey, AP internal rotation, Y scapular views of the leftshoulder FINDINGS: The distal clavicle, scapula, and proximal humerus are intact.Glenohumeral and acromioclavicular alignment appear normal. There is noacute fracture or dislocation of the shoulder. No destructive or scleroticbony lesions are identified. IMPRESSION: 1. No acute osseous or articular abnormalities. The attending radiologist has reviewed the image(s) and agrees with thecontent of this report. Ordered By: RENZO SILVA Interpreted By: Vikki Boyce MD, 09/15/2024 8:20 AM Renzo Silva PA-C GENERAL IMAGING Final Result from Last 3 Months Insurance R Care Teams Hostess Host Relationship Specialty Start Date End Date Renzo Silva PA-C [address] [place] [id number] PCP - General PHYSICIAN RESPIRATORY CARE FACULTY 01/26/24
--- OUTSIDE RECORDS SUMMARY | 2024-12-01 09:54 | XMS_ITS | Clinical Summary ---
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 This disclosure is being madepursuant to the Care Everywhere program and may not contain all information available regarding this patient. 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 Gender Identity Not on file Sexual Orientation Not on file Last Filed Vital Signs Vital Sign Reading Time Taken Comments Blood Pressure 126/80 01/02/2019 11:37 AM LICENSED SOCIAL WORKER Pulse 97 01/02/2019 11:37 AM LICENSED SOCIAL WORKER Temperature 37.1 C (98.7 F) 01/02/2019 11:37 AM LICENSED SOCIAL WORKER Respiratory Rate 16 01/02/2019 11:37 AM LICENSED SOCIAL WORKER Oxygen Saturation 96% 01/02/2019 11:37 AM LICENSED SOCIAL WORKER Inhaled Oxygen Concentration - - Weight 108.9 kg (240 lb) 01/02/2019 11:37 AM LICENSED SOCIAL WORKER Height 167.6 cm (5' 6) 01/02/2019 11:37 AM LICENSED SOCIAL WORKER Body Mass Index 38.74 01/02/2019 11:37 AM LICENSED SOCIAL WORKER Plan of Treatment Health Maintenance Due Date Last Done Comments LIPID TESTING 1981 MAMMOGRAM 1981 HIV SCREENING 1996 HEPATITIS C SCREENING 11/04/1999 DTAP/TDAP/TD VACCINES (1 - Tdap) 2000 HEPATITIS B VACCINE (1 of 3 - 19+ 3-dose series) 2000 PAP SMEAR 2002 HPV VACCINE (1 - 3-dose SCDM series) 2008 DEPRESSION SCREENING 02/11/2024 COVID-19 VACCINE (1 - 2023-2 5 season) 2024 INFLUENZA VACCINE (#1) 2024 11/19/2017 ZOSTER VACCINE [...] patient's age to complete this topic Insurance [facility] SELF PAY NO INSURANCE Member Subscriber Plan / Payer (Ef fective for All Dates) Name:Jocelyne Chapinlionel Member ID:Not on file Relation to Subscriber:Not on file Name:ALAN CHAPIN Subscriber ID:Not on file (Home) Address: [address] [place] [address] Payer ID:Not on file Group ID:Not on file Type:Self Pay Address: [place], [place]
== END 2024-12-01 09:04 | disposition home or self-care (01) ==
LOC: ANHFOHIMG 09:04
PROVIDERS: PCP Physician Assistant; Visit Provider Nurse Practitioner
DX: Z12.31 Encounter for screening mammogram for malignant neoplasm of breast (principal); N63.10 Unspecified lump in the right breast, unspecified quadrant
CPT/HCPCS: 77063; 77067

== ENCOUNTER 2025-01-12 10:50 | Outpatient (CLI) | payer OTHER, SELFPAY ==
--- NOTE | ~2025-01-12 | US_ITS ---
EXAMINATION: MM diagnostic right mammogram w shivani HISTORY: Additional imaging TECHNIQUE: Craniocaudal and mediolateral oblique 3-D tomosynthesis images were obtained and synthetic 2-D images were generated. CAD analysis was submitted and interpreted. Grayscale sonography over the area(s) of interest with color Doppler if there is a finding. COMPARISON: December 01 BREAST PARENCHYMAL COMPOSITION: Not Dense: There are scattered areas of fibroglandular MAMMOGRAM FINDINGS: Circumscribed masses persists in the 12 to 1:00 position. There are no suspicious calcifications. No unexplained architectural distortion is seen. There are no skin or nipple abnormalities identified. There is no adenopathy seen on the images submitted. ULTRASOUND FINDINGS: Sonography through the 12:00 position demonstrates a 7 mm cyst. At no additional similar cyst is seen nearby. At 1:00, there is a 1.2 cm cyst. Also a 1:00 is a 7 mm cyst. No solid masses are seen. IMPRESSION: Cysts accounting for the mammographic masses. No mammographic evidence to suggest malignancy is seen. The patient may return to screening mammography as per ACR guidelines. BI-RADS 2 - Benign. Reviewed, dictated and finalized at location B. BLANKS CUT OFF SAW OPERATOR IMPRESSION: Cysts accounting for the mammographic masses. No mammographic evidence to sugge st malignancy is seen. The patient may return to screening mammography as per A CR guidelines. BI-RADS 2 - Benign.
--- OUTSIDE RECORDS SUMMARY | 2025-01-12 12:26 | XMS_ITS | Data Portability ---
Author Organization [facility] Address [address] [place] [address] Assessment No assessment recorded. Plan of Treatment Reminders Order Date Submit Date Provider Last Modified By Organization Details Last Modified Time Details Appointments ANY 15 2025 08:30A EMEYLN Eugene Not available Not available Not available Lab vitamin D, 25-hydro xy, total, serum 2024 025 [facility], [address], [place], [address], 01/01/2025 08:35:31 CBC 2024 025 [facility], [address], [place], [address], 01/01/2025 08:35:31 CMP, serum or plasma 2024 025 [facility], [address], [place], [address], 01/01/2025 08:35:30 lipid panel, serum 2024 025 [facility], [address], [place], [address], 01/01/2025 08:35:30 urinalys is complete , reflex culture 2023 024 [facility], [address], [place], [address], 09/29/2023 17:20:22 CBC w/ auto diff 2023 024 [facility], [address], [place], [address], 09/29/2023 17:20:21 CMP, serum or plasma 2023 024 [facility], [address], [place], [address], 09/29/2023 17:20:21 Referral orthoped ic surgeon referral - bilat shoulder pain 2024 025 warren White MD, [address] [facility] [address], [place], [address], 09/15/2024 08:38:02 Procedures None recorded . Surgeries None recorded . Imaging XR, shoulder , 2 or more view - pain in both shoulder s 2024 025 [facility]), [address] [place], [address], 09/15/2024 13:33:36 XR, chest, 2 view 2023 024 [email or web address] Not available 12/09/2023 08:50:25 electroc ardiogra m 2023 024 [email or web address] In-Office Order, Internal Use Only DO Not Attach Compendium DO Not Attach Compendium, Do Not Delete/merge, [id number] 09/19/2023 00:56:28 Medication Orders ibuprofe n 800 mg tablet 2024 025 [facility] [address] [place], [address], 12/29/2024 12:14:11 gabapent in 300 mg capsule 2024 025 [facility] [address] [place], [address], 12/29/2024 12:19:34 cycloben zaprine 10 mg tablet 2024 025 WILEY [facility] [address] [place], [address], 03/29/2024 08:38:07 gabapent in 300 mg capsule 2024 025 [email or web address] [facility] [address] [place], [address], 12/29/2024 12:13:52 Patient TargetsNo targets recorded. Patient Instructions Encounter Date Encounter Id Patient Instructions Last Modified By Organization Details Last Modified Time 03/29/2024 [id number] A healthy lifestyle: care instructions [email or web address] Not available 03/29/2024 08:37:58 06/28/2024 [id number] A healthy lifestyle: care instructions Not available 06/28/2024 12:19:21 12/29/2024 [id number] A healthy lifestyle: care instructions [email or web address] Not available 12/29/2024 12:14:04 Reason for Referral Orthopedic Surgeon Referral for Bilateral chronic pain of upper limbs bilat shoulder pain Referring Physician: Keyon Silva, Family Medicine, Encounter Date: 09/15/2024 Results Created Date Observation Date Name Description Value Unit Range Abnormal Flag Note LastModifiedBy Organization Detail LastModifiedTime 01/01/2001/01/2025 LIPID PANEL , STAND PAMELA cholesterol, total 157 mg/dL <200 normal Not Available 17u[facility]cn [facility] [address] [place], [address], 01/01/2025 08:35:30 01/01/20 25 01/01/2025 LIPID PANEL , STAND PAMELA HDL cholesterol 38 mg/dL > or = 50 low Not Available 17[facility]cn [facility] [address] [place], [address], 01/01/2025 08:35:30 01/01/20 25 01/01/2025 LIPID PANEL , STAND PAMELA triglyceride s 98 mg/dL <150 normal Not Available [facility] [address] [place], [address], 01/01/2025 08:35:30 01/01/20 25 01/01/2025 LIPID PANEL , STAND PAMELA LDL-choleste rol 100 mg/dL _(trent c) high Refer ence range : <100 Sriram able range <100 mg/dL for prima ry preve ntion ; <70 mg/dL for patie nts with CHD or diabe tic patie nts with > or = 2 CHD risk facto rs. LDL-C is now calcu lated using the Coty n-Hop kins calcu latio n, which is a valid ated novel metho d provi kristy arredondo r accur acy than the Fried minnie equat ion in the estim ation of LDL-C . Coty ruiz SS et al. NETTE. 2013; 310(1 9): 2061- 2068 (http ://ed ucati on.Qu ezekielCrowdOptic. com/f aq/FA Q164) Not Available [address], [place], [address], 01/01/2025 08:35:30 01/01/20 25 01/01/2025 LIPID PANEL , STAND PAMELA chol/HDLC ratio 4.1 (calc ) <5.0 normal Not Available [facility] [address] [place], [address], 01/01/2025 08:35:30 01/01/20 25 01/01/2025 LIPID PANEL , STAND PAMELA non HDL cholesterol 119 mg/dL _(trent c) <130 normal For patie nts with diabe gabriel plus 1 major ASCVD risk facto r, treat ing to a non-H DL-C goal of <100 mg/dL (LDL- C of <70 mg/dL ) is consi kristi bergeron c optio n. Not Available [facility] [address] [place], [address], 01/01/2025 08:35:30 01/01/20 25 01/01/2025 COMPR EHENS REESE METAB OLIC PANEL glucose 64 mg/dL 65-99 low Fasti ng refer ence inter shonna Not Available [address], [address], 01/01/2025 08:35:30 01/01/20 25 01/01/2025 COMPR EHENS REESE METAB OLIC PANEL urea nitrogen (BUN) 11 mg/dL 7-25 normal Not Available [address], [address], 01/01/2025 08:35:30 01/01/20 25 01/01/2025 COMPR EHENS REESE METAB OLIC PANEL creatinine 0.69 mg/dL 0.50-0 .99 normal Not Available [address], [address], 01/01/2025 08:35:30 01/01/20 25 01/01/2025 COMPR EHENS REESE METAB OLIC PANEL eGFR 110 mL/mi n/1.7 3m2 > or = 60 normal Not Available [address], [address], 01/01/2025 08:35:30 01/01/20 25 01/01/2025 COMPR EHENS REESE METAB OLIC PANEL BUN/creatini ne ratio SEE NOTE: (calc ) 6-22 Not Repor kirill: BUN and Creat inine are withi n refer ence range . Not Available [address], [address], 01/01/2025 08:35:30 01/01/20 25 01/01/2025 COMPR EHENS REESE METAB OLIC PANEL sodium 140 mmol/ L 135-14 6 normal Not Available [address], [address], 01/01/2025 08:35:30 01/01/20 25 01/01/2025 COMPR EHENS REESE METAB OLIC PANEL potassium 4.4 mmol/ L 3.5-5. 3 normal Not Available [address], [address], 01/01/2025 08:35:30 01/01/20 25 01/01/2025 COMPR EHENS REESE METAB OLIC PANEL chloride 105 mmol/ L 98-110 normal Not Available [address], [address], 01/01/2025 08:35:30 01/01/20 25 01/01/2025 COMPR EHENS REESE METAB OLIC PANEL carbon dioxide 25 mmol/ L 20-32 normal Not Available [address], [address], 01/01/2025 08:35:30 01/01/20 25 01/01/2025 COMPR EHENS REESE METAB OLIC PANEL calcium 9.0 mg/dL 8.6-10 .2 normal Not Available [address], [address], 01/01/2025 08:35:30 01/01/20 25 01/01/2025 COMPR EHENS REESE METAB OLIC PANEL protein, total 6.6 g/dL 6.1-8. 1 normal Not Available [address], [address], 01/01/2025 08:35:30 01/01/20 25 01/01/2025 COMPR EHENS REESE METAB OLIC PANEL albumin 4.3 g/dL 3.6-5. 1 normal Not Available [address], [address], 01/01/2025 08:35:30 01/01/20 25 01/01/2025 COMPR EHENS REESE METAB OLIC PANEL globulin 2.3 g/dL_ (calc ) 1.9-3. 7 normal Not Available [address], [address], 01/01/2025 08:35:30 01/01/20 25 01/01/2025 COMPR EHENS REESE METAB OLIC PANEL albumin/glob ulin ratio 1.9 (calc ) 1.0-2. 5 normal Not Available [address], [address], 01/01/2025 08:35:30 01/01/20 25 01/01/2025 COMPR EHENS REESE METAB OLIC PANEL bilirubin, total 0.8 mg/dL 0.2-1. 2 normal Not Available [address], [address], 01/01/2025 08:35:30 01/01/20 25 01/01/2025 COMPR EHENS REESE METAB OLIC PANEL alkaline phosphatase 53 U/L 31-125 normal Not Available [address], [address], 01/01/2025 08:35:30 01/01/20 25 01/01/2025 COMPR EHENS REESE METAB OLIC PANEL AST 27 U/L 10-30 normal Not Available [address], [address], 01/01/2025 08:35:30 01/01/20 25 01/01/2025 COMPR EHENS REESE METAB OLIC PANEL ALT 22 U/L 6-29 normal Not Available [address], [address], 01/01/2025 08:35:30 01/01/20 25 01/01/2025 CBC (H/H, RBC, INDIC ES, WBC, PLT) white blood cell count 8.2 thous and/u L 3.8-10 .8 normal Not Available [address], [address], 01/01/2025 08:35:31 01/01/20 25 01/01/2025 CBC (H/H, RBC, INDIC ES, WBC, PLT) red blood cell count 4.42 theresa on/uL 3.80-5 .10 normal Not Available [address], [address], 01/01/2025 08:35:31 01/01/20 25 01/01/2025 CBC (H/H, RBC, INDIC ES, WBC, PLT) hemoglobin 13.5 g/dL 11.7-1 5.5 normal Not Available [address], [address], 01/01/2025 08:35:31 01/01/2001/01/2025 CBC (H/H, RBC, INDIC ES, WBC, PLT) hematocrit 42.3 % 35.0-4 5.0 normal Not Available [address], [address], 01/01/2025 08:35:31 01/01/20 25 01/01/2025 CBC (H/H, RBC, INDIC ES, WBC, PLT) MCV 95.7 fL 80.0-1 00.0 normal Not Available [address], [address], 01/01/2025 08:35:31 01/01/20 25 01/01/2025 CBC (H/H, RBC, INDIC ES, WBC, PLT) MCH 30.5 pg 27.0-3 3.0 normal Not Available [address], [address], 01/01/2025 08:35:31 01/01/20 25 01/01/2025 CBC (H/H, RBC, INDIC ES, WBC, PLT) MCHC 31.9 g/dL 32.0-3 6.0 low For adult s, a sligh t decre ase in the calcu lated MCHC value (in the range of 30 to 32 g/dL) is most likel y not clini mary signi barron t; elizabeth er, it shoul d be inter prete d with cauti on in corre latio n with other red cell pranay eters and the patie nt's clini trent condi tion. Not Available [facility] [address] [address] [place], [address], 01/01/2025 08:35:31 01/01/20 25 01/01/2025 CBC (H/H, RBC, INDIC ES, WBC, PLT) RDW 12.6 % 11.0-1 5.0 normal Not Available [facility] [address] [address] [place], [address], 01/01/2025 08:35:31 01/01/2001/01/2025 CBC (H/H, RBC, INDIC ES, WBC, PLT) platelet count 289 thous and/u L 140-40 0 normal Not Available [facility] [address] [address] [place], [address], 01/01/2025 08:35:31 01/01/20 25 01/01/2025 CBC (H/H, RBC, INDIC ES, WBC, PLT) MPV 10.6 fL 7.5-12 .5 normal Not Available [address], [address], 01/01/2025 08:35:31 01/01/2001/01/2025 VITAM IN D,25- OH,TO JAMISON,I A vitamin D,25-oh,tota l,ia 26 NG/mL 30-100 low Vitam in D Statu s 25-OH Vitam in D: Defic iency : <20 ng/mL Insuf ficie ncy: 20 - 29 ng/mL Optim al: > or = 30 ng/mL For 25-OH Vitam in D testi ng on patie nts on D2-thornton pplem entat ion and patie nts for whom quant itati on of D2 and D3 fract ions is requi red, the [facility] Assur eD(TM ) 25-OH VIT D, (D2,D 3), LC/MS /MS is recom kwaku d: order code 18072 (hayden ents >2yrs ). See Note 1 Note 1 For addit ional infor wendy foreman refer to http: //[facility] baltazar ruiz.Giovanni shah ics.c om/fa q/FAQ 199 (This link is being provi ded for infor narinder lewis/ educa dariela l purpo ses only. ) Not Available [facility] [address] [place], [address], 01/01/2025 08:35:31 09/17/19 24 09/22/2023 elect rocar diogr am No observ ation record ed. WILEY In-Office Order Internal Use Only DO Not Attach Compendium DO Not Attach Compendium, Do Not Delete/merge, [id number] 09/23/2023 08:39:18 10/07/19 24 10/07/2023 elect rocar diogr am No observ ation record ed. WILEY In-Office Order Internal Use Only DO Not Attach Compendium DO Not Attach Compendium, Do Not Delete/merge, [id number] 10/07/2023 10:22:33 10/07/19 24 09/17/2023 elect rocar diogr am No observ ation record ed. WILEY In-Office Order Internal Use Only DO Not Attach Compendium DO Not Attach Compendium, Do Not Delete/merge, [id number] 10/07/2023 10:28:03 09/16/19 25 09/15/2024 XR, shoul nasley, 2 or more view No observ ation record ed. [address], [address], 09/15/2024 13:38:34 09/16/19 25 09/15/2024 XR, shoul ansley, 2 or more view No observ ation record ed. [address], [address], 09/15/2024 13:38:34 11/27/19 25 11/24/2024 MRI, shoul ansley, w/o contr ast No observ ation record ed. [email or web address] [facility] [address], [place], [address], 12/01/2024 14:44:07 12/02/19 25 12/01/2024 MAMMO , scree al, tomos ynthe sis, bilat eral No observ ation record ed. [email or web address] [facility] [address], [place], [address], 12/06/2024 17:25:45 Result Notes None recorded. Problems Name Problem SNOMED Code Status Onset Date Resolution Date Notes Provider Name and Address Organization Details Recorded Time Migraine 00705018 Active 2024 EMELYN Hoff Attn: Alondra gamble,[address] [facility], [place], [address], [facility] 5 07:30:53 Chronic neck pain 4164475270080 Active 2024 EMELYN Hoff Attn: Alondra g,[address] [facility], [place], [address], [facility] 5 07:30:54 Bilateral carpal tunnel syndrome 29787157633159 101 Active 2024 EMELYN Hoff Attn: Mariumnila g,[address] [facility], [place], [address], [facility] - [facility] 5 12:23:12 Notes:Some problems listed i n Document: #[id number] could not be added to this patient's chart. Please review this document and add these problems to the patient's chart manually as needed. Problem Notes None recorded. Procedures Surgical History Date Name Laterality Status Provider Name and Address Organization Details Recorded Time 4 excision of mass completed [facility] 09/17/2023 16:38:56 8 removal of mole of skin by excision completed [facility] 09/17/2023 16:39:25 01/01/201 0 epidural anesthesia completed [facility] [place] - [facility] 09/17/2023 16:39:38 Imaging Results None recorded. Procedure Notes None recorded. Medical Equipment None Reported. Allergies Allergen ID Allergen Name Allergen Category Reaction Reaction Severity Criticality Documentation Date Start Date Code Code System Note Provider Name and Address Organization Details Recorded Time 838980 Product containin g glucocort icoid (product) medicatio n anaphylax is severe high 09/15/2023 93205 6006 SNOMED Arielle Chavez LPN [place], [place] - [facility] 4 16:46:21 224820 cortisone medicatio n arthralgi a (joint pain) myalgias (muscle pain) other Not available Not available Not available high 09/15/20232022 2878 RxNorm [place], [place] - [facility] 5 12:07:11 101832 Milk (substanc e) food,medi cation vomiting severe high 09/15/2023 76646 002 SNOMED Arielle Chavez LPN [place] [facility] 4 16:47:17 002673 blue dye medicatio n rash mild low 09/15/2023 Arielle Chavez LPN [place] [facility] 4 16:47:57 848017 wheat gluten extract food swelling Not available high 09/15/20232021 07969 81 RxNorm unrec ogniz ed react ion (text : Stoma ch upset , code: 95544 9005) (from exter nal sourc e) [place] - [facility] 5 12:07:18 274200 latex environme nt,medica tion rash Not available high 09/15/20232010 60738 91 RxNorm Tiffani Alberto [place] - [facility] 5 12:07:22 899060 zinc environme nt,medica tion rash Not available high 09/15/20232008 05855 RxNorm [place] - [facility] 5 12:07:35 230743 bupivacai ne medicatio n Not available Not available [facility] 09/15/2023 1815 RxNorm Arielle Ch[place] LPN [place] [facility] 4 16:49:40 138408 lidocaine medicatio n Not available Not [facility] 09/15/2023 6387 RxNorm Arielle Chavez ST[employer] [place] [facility] 4 16:49:54 705556 dexametha sone medicatio n Not available Not available [facility] 09/15/2023 3264 RxNorm Arielle Chavez [employer] [facility] 4 16:50:12 458588 shellfish derived food,medi cation Not available Not available [facility] 09/15/2023 Arielle Chavez [employer] [facility] 4 16:50:24 465010 triamcino lone medicatio n Not available Not available [facility] 09/15/2023 69597 RxNorm Arielle Chavez ST[employer] [facility] 4 16:50:40 071740 nickel environme nt Not available Not available Not available 10/01/2023 56766 29 RxNorm Gu[place], [place] dave, [place] - [facility] 4 14:23:27 378899 Duocaine medicatio n Not available Not available Not available 06/28/20242023 48583 9 RxNorm unrec ogniz ed react ion (text : Unkno wn, code: 04784 5006) (from ext nal sourc e) [place], [place] null, [place] [facility] 5 12:07:14 263127 Shellfish (substanc e) food,medi cation Not available Not available Not available 06/28/20242021 12252 9006 SNOMED unrec ogniz ed react ion (text : Unkno wn, code: 03379 5006) (from ext nal sourc e) [place], [place] null, [place] [facility] 5 12:07:29 Medications Name Sig Start Date Stop Date Status Note LastModified by Organization Details LastModified Time cyclobenzap rine 10 mg tablet TAKE 1 TABLET BY MOUTH THREE TIMES DAILY active Not Available Not Available No t Available amoxicillin 500 mg capsule TAKE FOUR CAPSULES BY MOUTH ONE HOUR BEFORE APPOINTME NT 12/29 completed Not Available Not Available Not Available albuterol sulfate 0.63 mg/3 mL solution [...] ONE AT DINNER, AND TWO AT NIGHT 12/29 completed Not Available Not Available Not Available albuterol sulfate HFA 90 mcg/actuati on [...] mass index (BMI) Body weight Oxygen saturation Heart rate Systolic And Diastolic Provider Name and Address Organization Details Last Updated DateTime 5 167.64 cm 43.4 kg/m2 251136. 35 g 98 % 96 /min 118/78 mm[Hg] Jazmine Chavez LPN [facility] 5 08:29:43 Date Recorded Body height Body mass index (BMI) Body weight Oxygen saturation Heart rate Systolic And Diastolic Provider Name and Address Organization Details Last Updated DateTime 5 165.1 cm 46 kg/m2 423632. 54 g 99 % 83 /min 114/72 mm[Hg] [facility] 5 12:10:26 Date Recorded Body height Body mass index (BMI) Body weight Oxygen saturation Heart rate Systolic And Diastolic Provider Name and Address Organization Details Last Updated DateTime 5 165.1 cm 47 kg/m2 796034. 8 g 98 % 81 /min 126/78 mm[Hg] Jazmine Chavez LPN [facility] 5 08:17:41 Date Recorded Body height Body mass index (BMI) Body weight Oxygen saturation Heart rate Provider Name and Address Organization Details Last Updated DateTime 09/17/2023 167.64 cm 39.7 kg/m2 128499.7 7 g 99 % 97 /min [facility] 4 16:35:34 Date Recorded Body height Body mass index (BMI) Body weight Oxygen saturation Heart rate Systolic And Diastolic Provider Name and Address Organization Details Last Updated DateTime 5 165.1 cm 44.1 kg/m2 392025. 33 g 99 % 74 /min 132/84 mm[Hg] Javier Raman MA [facility] 5 11:51:58 Social History Question Answer Notes LastModified by Organizat ion Details LastModified Time Tobacco Smoking Status Never Smoker TRAMAINE Kinsey, [facility] 09/17/2023 16:38:11 What Is Your Level Of Caffeine Consumption? Occasional Information not available 09/17/2023 What Was The Date Of Your Most Recent Tobacco Screening? 12/29/2024 Information not available 12/29/2024 Has Tobacco Cessation Counseling Been Provided? No Information not available 12/29/2024 Sex: Female Functional Status Question Answer Note [...] Eating Disorder N Anemia N Heart Attack ([place]) N Anxiety Disorder N Diabetes N Muscle, [...] virus, trivalent, preservative 3 completed Not Available [facility] 12/29/2024 11:32:40 Influenza, split virus, trivalent, PF 6 completed Not Available [facility] 12/29/2024 11:32:40 Influenza, split virus, quadrivalent, PF 7 completed Not Available [facility] 12/29/2024 11:32:40 Past Encounters Encounter ID Performer Location Encounter Start Date Encounter Closed Date Diagnosis/Indication Diagnosis SNOMED-CT Code Diagnosis ICD10 Code Diagnosis IMO Codes Diagnosis Note [id number] Tony Hudson DO [facility] [employer] [place] [address] [facility] [address] [facility] [place] [address] 09/17/2023 15:56:53 09/25/2023 18:20:52 Adult health examination 988256472 Z00.00 Healthy diet and exercise, HCM as discussed Migraine 63052343 G43.90 9 Hydration, meds as discussed, call for s/s as discussed Neck pain 36856700 M54.2 scheduled for surgery, doing pre-op, if pre-op is NL will clear for srugery Pre-surger y evaluation 908726768 Z01.818 patient mentions metal testing, we will get further guidence from surgeon [id number] Tony Hudson, DO [facility] [employer] [place] [address] [place] [address] 03/29/2024 08:10:25 04/01/2024 09:43:23 History of cervical spine fusion 0545411373 101 Z98.1 now doing fine, using neurontin and going to PT and chiropract or 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 1284476970 7107 M79.2 on gabapentin , having surgery for carpel tunnel and cubital tunnel surgery Morbid obesity 469769670 E66.01 [id number] Tony Hudson, DO [facility] [employer] [place] [address] [place] [address] 06/28/2024 11:51:08 06/29/2024 10:18:51 Chronic neck pain 2233932015 107 M54.2 G89.29 [id number] Had surgery and healing well, has appt in Oct Migraine 43811238 G43.90 9 [address] Hydration, meds as discussed, call for s/s as discussed Obese class III 26554141 5 E66.813 4520559011 HIV screen ing declined 9858766926 53991 Z53.20 6410233261 History of cervical spine fusion 7800716203 101 Z98.1 now doing fine, using neurontin but we are trying to decrease dosage and going to PT and chiropract or Bilateral carpal tunnel syndrome 5430659458 2973836 G56.03 728657 also cubital tunnel and is scheduled for surgery on both bilateral [id number] Tony Hudson, DO [facility] [place] [address] [address] 09/15/2024 08:03:17 09/16/2024 10:52:47 Chronic neck pain 7421911247 107 M54.2 G89.29 681653 Had surgery and healing well, has appt in Oct Migraine 95470712 G43.90 9 65697 Hydration, meds as discussed, call for s/s as discussed History of cervical spine fusion 2345165495 101 Z98.1 now doing fine, using neurontin but we are trying to decrease dosage and going to PT and chiropract or Bilateral carpal tunnel syndrome 5004200183 3493157 G56.03 179536 had surgery and oding much better Bilateral chronic pain of upper limbs 6584431706 4022301 M25.511 M25.512 G89.29 [id number] x-rays ordered and consult to ortho [id number] Tony Hudson, DO [facility] [place] [address] [address] 12/29/2024 11:28:53 12/30/2024 08:41:36 Chronic neck pain 4576454040 107 M54.2 G89.29 513730 Had surgery and healing well, has appt in Oct Migraine 33830831 G43.90 9 47133 Hydration, meds as discussed, call for s/s as discussed History of cervical spine fusion 0263058647 101 Z98.1 now doing fine, using neurontin but we are trying to decrease dosage and going to PT and chiropract or Bilateral carpal tunnel syndrome 8484010649 6470959 G56.03 050483 had surgery and oding much better Bilateral chronic pain of upper limbs 2847911264 6425800 M25.511 M25.512 G89.29 [id number] x-rays ordered and consult to ortho Adult heal th examination 915368738 Z00.00 297836 Healthy diet and exercise, HCM as discussed Obese class III 73449907 5 E66.813 E66.3 6347121818 Vitamin D deficiency 347 79074 E55.9 03326 Health Concerns Section Related Observation LastModified by Organization Detai ls LastModified Time None Recorded Concern Status LastModified by Organization Details LastModified Time None Recorded Advance Directives Directive None Recorded Payers Insurance Date Sequence Insurance Name Policy Number Policy Gao Covered Member ID Gao Member ID Guarantor Name 03/29/2024 1 [employer] ([facility]) [id number] Manohar Noyola [id number] Alan Noyola 06/29/2024 1 [facility] ([facility]) Manohar Noyola [id number] Alan Noyola 12/29/2024 1 [facility] ([facility]) [id number] Manohar Noyola [id number] Alan Noyola Notes Date Note Type Note Provider Name and Address Organization Details Recorded Time 4 text/html New Patient is in for routine PE and follow-up for the following medical conditions labs and medications.Patient in for the followingDiagnoses and all orders for this visit:Routine general medical examination at a health care facility (Primary)-gol-kdxnzr-We ercise:yes but needs more-colonoscopy: No FMHX-flu: Declined-Covid [...] 49.9 in adult (HCC)-working on weight loss ELLA Roy [place] - [facility] 10/07/2023 10:17:53 5 text/html New Patient is in to discuss medication Diagnoses and all orders for this visit:Routine general medical examination at a health care facility (Primary)-uyk-dzybqm-Un ercise:yes but needs more-colonoscopy: No FMHX-flu: Declined-Covid [...] of 45.0 to 49.9 in adult ([facility])-working on weight loss EMELYN Hoff Attn: Accounting,[address] [place], [address], [facility] 03/29/2024 08:40:12 5 text/html ROS as noted in the HPI Patient is in for routine follow up for the following medical yguideqfid-avl-lohamp-E xercise:yes but needs more-colonoscopy: No FMHX-flu: Declined-Covid [...] of 45.0 to 49.9 in adult ([facility])-working on weight loss EMELYN Hoff Attn: Accounting,[address] [place], [address], [facility] 06/28/2024 13:06:34 5 text/html ROS as noted in the HPI Patient is in for routine follow up for the following medical gtbvqsolxg-xqh-abqbqn-E xercise:yes but needs more-colonoscopy: No FMHX-flu: Declined-Covid [...] of 45.0 to 49.9 in adult ([facility])-working on weight loss EMELYN Hoff Attn: Accounting,[address] [place], [address], [facility] 09/15/2024 08:37:58 5 text/html ROS as noted in the HPI Patient is in for routine follow up for the following medical conditions and annual fsweszrx-xkl-jjiqnj-Exe rcise:yes but needs more-colonoscopy: No FMHX-flu: Declined-Covid 19: none-HPV : did not-specialist:-mammogr am: UTD [id number], 2 masses and pending DX with US jan 12-bone density:-pap: Jan 2023Neck pain-this is 6 years [...] little tramadol now pending bilateral shoulder surgery Jan 18 on right then Mar 10 left side -Denies any CP, SOB, palpitations, no general [...] 49.9 in adult (HCC)-working on weight loss Javier Raman MA [facility], [place] - [facility] 12/29/2024 12:22:56 OBGyn Episode No OBEpisode recorded.
--- OUTSIDE RECORDS SUMMARY | 2025-01-12 12:26 | XMS_ITS | Clinical Summary ---
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
--- OUTSIDE RECORDS SUMMARY | 2025-01-12 12:27 | XMS_ITS | Clinical Summary ---
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 Gender Identity Not on file Sexual Orientation [...] - Tdap) 1992 Hepatitis B Screening 11/09/1999 HPV Vaccines (1 - 3-dose SCDM series) 2008 Depression Screening 11/26/2023 11/25/2022, 11/01/2022, 11/21/2021 Regular Well Visit/Exam 18-64 11/26/2023 11/25/2022, 11/21/2021 Breast Cancer Screening-Mammogram 02/12/2024 02/11/2023 Influenza Vaccine (#1) 2024 9, 11/19/2017, 11/14/2016, Additional history exists Pneumococcal vaccine <65 Aged Out No longer eligible based on patient's age to complete this topic Varicella Vaccines Discontinued Insurance [employer] ACCESS CHOICE BLUE ACCESS OOS Care Teams Highway Maintenance Crew Worker Relationship Specialty Start Date End Date Keyon Silva PA PCP - General Family Medicine 11/21/21
--- OUTSIDE RECORDS SUMMARY | 2025-01-12 12:27 | XMS_ITS | Continuity of Care Document ---
Author Organization [place] [facility] [place], [facility] Address [address] [place] [address] Assessment No assessment recorded. Plan of Treatment Reminders Order Date Submit Date Provider Last Modified By Organization Details Last Modified Time Details Appointments ANY 15 2025 08:30A EMELYN Eugene Not available Not available Not available Lab vitamin D, 25-hydrox y, total, serum 2024 025 [facility], [address], [place], [address], 01/01/2025 08:35:31 CBC 2024 025 [facility], [address], [place], [address], 01/01/2025 08:35:31 CMP, serum or plasma 2024 025 [facility], [address], [place], [address], 01/01/2025 08:35:30 lipid panel, serum 2024 025 [facility], [address], [place], [address], 01/01/2025 08:35:30 Referral None recorded. Procedures None recorded. Surgeries None recorded. Imaging None recorded. Medication Orders ibuprofen 800 mg tablet 2024 025 [facility] [address] [place], [address], 12/29/2024 12:14:11 Patient TargetsNo targets recorded. Patient Instructions Encounter Date Encounter Id Patient Instructions Last Modified By Organization Details Last Modified Time 12/29/2024 [id number] A healthy lifestyle: care instructions [email or web address] Not available 12/29/2024 12:14:04 Reason for Referral None Reported. Results Created Date Observation Date Name Description Value Unit Range Abnormal Flag Note LastModifiedBy Organization Detail LastModifiedTime 01/01/2001/01/2025 LIPID PANEL , STAND PAMELA cholesterol, total 157 mg/dL <200 normal Not Available [address], [address], 01/01/2025 08:35:30 01/01/20 25 01/01/2025 LIPID PANEL , STAND PAMELA HDL cholesterol 38 mg/dL > or = 50 low Not Available [address], [address], 01/01/2025 08:35:30 01/01/20 25 01/01/2025 LIPID PANEL , STAND PAMELA triglyceride s 98 mg/dL <150 normal Not Available [address], [address], 01/01/2025 08:35:30 01/01/20 25 01/01/2025 LIPID PANEL [...] lated using the Coty n-Hop kins calcu latkaity n, which is a valid ated novel metho d abena arredondo r accur acy than the Fried minnie equat ion in the estim ation of LDL-C . Coty ruiz SS et al. NETTE. 2013; 310(1 9): 2061- 2068 (http ://ed ucati on.Neil beth InVisage [employer]iess. com/f aq/FA Q164) Not Available [address], [address], 01/01/2025 08:35:30 01/01/20 25 01/01/2025 LIPID PANEL , STAND PAMELA chol/HDLC ratio 4.1 (calc ) <5.0 normal Not Available [address], [address], 01/01/2025 08:35:30 01/01/20 25 01/01/2025 LIPID PANEL , STAND PAMELA non HDL cholesterol 119 mg/dL _(trent c) <130 normal For patie nts with diabe gabriel plus 1 major ASCVD risk facto r, treat ing to a non-H DL-C goal of <100 mg/dL (LDL- C of <70 mg/dL ) is consi dered a thera peuti c optio n. Not Available [address], [address], 01/01/2025 08:35:30 01/01/20 25 01/01/2025 COMPR EHENS REESE METAB OLIC PANEL glucose 64 mg/dL 65-99 low Fasti ng refer ence inter shonna Not Available [address], [address], 01/01/2025 08:35:30 01/01/20 25 01/01/2025 COMPR EHENS REESE METAB OLIC PANEL urea nitrogen (BUN) 11 mg/dL 7-25 normal Not Available [address], [address], 01/01/2025 08:35:30 01/01/20 25 01/01/2025 COMPR EHENS REESE METAB OLIC PANEL creatinine 0.69 mg/dL 0.50-0 .99 normal Not Available [address], [address], 01/01/2025 08:35:30 01/01/20 25 01/01/2025 COMPR EHENS REESE METAB OLIC PANEL eGFR 110 mL/mi n/1.7 3m2 > or = 60 normal Not Available [address], [address], 01/01/2025 08:35:30 01/01/20 25 01/01/2025 COMPR EHENS REESE METAB OLIC PANEL BUN/creatini ne ratio SEE NOTE: (calc ) 6-22 Not Repor kirill: BUN and Creat inine are withi n refer ence range . Not Available [address], [address], 01/01/2025 08:35:30 01/01/20 25 01/01/2025 COMPR EHENS REESE METAB OLIC PANEL sodium 140 mmol/ L 135-14 6 normal Not Available [address], [address], 01/01/2025 08:35:30 01/01/20 25 01/01/2025 COMPR EHENS REESE METAB OLIC PANEL potassium 4.4 mmol/ L 3.5-5. 3 normal Not Available [address], [address], 01/01/2025 08:35:30 01/01/20 25 01/01/2025 COMPR EHENS REESE METAB OLIC PANEL chloride 105 mmol/ L 98-110 normal Not Available [address], [address], 01/01/2025 08:35:30 01/01/20 25 01/01/2025 COMPR EHENS REESE METAB OLIC PANEL carbon dioxide 25 mmol/ L 20-32 normal Not Available [address], [address], 01/01/2025 08:35:30 01/01/20 25 01/01/2025 COMPR EHENS REESE METAB OLIC PANEL calcium 9.0 mg/dL 8.6-10 .2 normal Not Available [address], [address], 01/01/2025 08:35:30 01/01/20 25 01/01/2025 COMPR EHENS REESE METAB OLIC PANEL protein, total 6.6 g/dL 6.1-8. 1 normal Not Available [address], [address], 01/01/2025 08:35:30 01/01/20 25 01/01/2025 COMPR EHENS REESE METAB OLIC PANEL albumin 4.3 g/dL 3.6-5. 1 normal Not Available [address], [address], 01/01/2025 08:35:30 01/01/20 25 01/01/2025 COMPR EHENS REESE METAB OLIC PANEL globulin 2.3 g/dL_ (calc ) 1.9-3. 7 normal Not Available [address], [address], 01/01/2025 08:35:30 01/01/20 25 01/01/2025 COMPR EHENS REESE METAB OLIC PANEL albumin/glob ulin ratio 1.9 (calc ) 1.0-2. 5 normal Not Available [address], [address], 01/01/2025 08:35:30 01/01/20 25 01/01/2025 COMPR EHENS REESE METAB OLIC PANEL bilirubin, total 0.8 mg/dL 0.2-1. 2 normal Not Available [address], [address], 01/01/2025 08:35:30 01/01/20 25 01/01/2025 COMPR EHENS REESE METAB OLIC PANEL alkaline phosphatase 53 U/L 31-125 normal Not Available [facility] [address] [place], [address], 01/01/2025 08:35:30 01/01/20 25 01/01/2025 COMPR EHENS REESE METAB OLIC PANEL AST 27 U/L 10-30 normal Not Available [address], [address], 01/01/2025 08:35:30 01/01/20 25 01/01/2025 COMPR EHENS REESE METAB OLIC PANEL ALT 22 U/L 6-29 normal Not Available [address], [address], 01/01/2025 08:35:30 01/01/20 25 01/01/2025 CBC (H/H, RBC, INDIC ES, WBC, PLT) white blood cell count 8.2 thous and/u L 3.8-10 .8 normal Not Available [address], [address], 01/01/2025 08:35:31 01/01/20 25 01/01/2025 CBC (H/H, RBC, INDIC ES, WBC, PLT) red blood cell count 4.42 theresa on/uL 3.80-5 .10 normal Not Available [address], [address], 01/01/2025 08:35:31 01/01/20 25 01/01/2025 CBC (H/H, RBC, INDIC ES, WBC, PLT) hemoglobin 13.5 g/dL 11.7-1 5.5 normal Not Available [address], [address], 01/01/2025 08:35:31 01/01/20 25 01/01/2025 CBC (H/H, RBC, INDIC ES, WBC, PLT) hematocrit 42.3 % 35.0-4 5.0 normal Not Available [facility] [address], [address], 01/01/2025 08:35:31 01/01/20 25 01/01/2025 CBC (H/H, RBC, INDIC ES, WBC, PLT) MCV 95.7 fL 80.0-1 00.0 normal Not Available [facility] [address], [address], 01/01/2025 08:35:31 01/01/20 25 01/01/2025 CBC (H/H, RBC, INDIC ES, WBC, PLT) MCH 30.5 pg 27.0-3 3.0 normal Not Available [facility] [address], [address], 01/01/2025 08:35:31 01/01/20 25 01/01/2025 CBC (H/H, RBC, INDIC ES, WBC, PLT) MCHC 31.9 g/dL 32.0-3 6.0 low For adult s, a sligh t decre ase in the calcu lated MCHC value (in the range of 30 to 32 g/dL) is most likel y not clini [facility]; elizabeth er, it shoul d be inter prete d with cauti on in [facility] n with other red cell pranay eters and the patie nt's clini trent condi tion. Not Available [facility] [address], [address], 01/01/2025 08:35:31 01/01/2001/01/2025 CBC (H/H, RBC, INDIC ES, WBC, PLT) RDW 12.6 % 11.0-1 5.0 normal Not Available [facility] [address], [address], 01/01/2025 08:35:31 01/01/20 25 01/01/2025 CBC (H/H, RBC, INDIC ES, WBC, PLT) platelet count 289 thous and/u L 140-40 0 normal Not Available [facility] [address] [place], [address], 01/01/2025 08:35:31 01/01/2001/01/2025 CBC (H/H, RBC, INDIC ES, WBC, PLT) MPV 10.6 fL 7.5-12 .5 normal Not Available [facility] [address], [place], [address], 01/01/2025 08:35:31 01/01/2001/01/2025 VITAM IN D,25- [place],TO [...] /MS is recom kwaku d: order code 15714 (hayden ents >2yrs ). See Note 1 Note 1 For addit ional infor wendy foreman refer to http: //[facility] Elliottia gnost ics.c om/fa q/FAQ 199 (This link is being provi ded for infor narinder lewis/ educmira mendieta purpo ses only. ) Not Available [facility] [address], [place], [address], 01/01/2025 08:35:31 12/02/1912/01/2024 MAMMO , scree al, tomos ynthe sis, bilat eral No observ ation record ed. [address] - [facility] [address] [facility], [place], [address], 12/06/2024 17:25:45 Result Notes None recorded. Problems Name Problem SNOMED Code Status Onset Date Resolution Date Notes Provider Name and Address Organization Details Recorded Time Migraine 76509128 Active 2024 EMELYN Hoff Attn: Alondra gamble,[address] [facility], [place], [address], [facility] - [facility] 5 07:30:53 Chronic neck pain 0311955466988 Active 2024 EMELYN Hoff Attn: Alondra gamble,[address] [facility], [place], [address], [facility] - [facility] 5 07:30:54 Bilateral carpal tunnel syndrome 91173307186116 101 Active 2024 EMELYN Hoff Attn: Alondra gamble,[address] [facility], [place], [address], [facility] - [facility] 5 12:23:12 Notes:Some problems listed i n Document: #[id number] could not be added to this patient's chart. Please review this document and add these problems to the patient's chart manually as needed. Problem Notes None recorded. Procedures Surgical History Date Name Laterality Status Provider Name and Address Organization Details Recorded Time [address] [facility] 09/17/2023 16:38:56 8 removal of mole of skin by excision completed [facility] 09/17/2023 16:39:[address] [facility] 09/17/2023 16:39:38 Imaging Results None recorded. Procedure Notes None recorded. Medical Equipment None Reported. Allergies Allergen ID Allergen Name Allergen Category Reaction Reaction Severity Criticality Documentation Date Start Date Code Code System Note Provider Name and Address Organization Details Recorded Time 994119 Product containin g glucocort icoid (product) medicatio n anaphylax is severe high 09/15/2023 93406 6006 SNOMED Arielle Chavez LPN null, [facility] 4 16:46:21 130520 cortisone medicatio n arthralgi a (joint pain) myalgias (muscle pain) other Not available Not available Not available high 09/15/20232022 2878 RxNorm Tiffani Alberto MA null, [place] - [facility] 5 12:07:11 333008 Milk (substanc e) food,medi cation vomiting severe high 09/15/2023 51557 002 SNOMED Arielle Chavez LPN [place], [place] [facility] 4 16:47:17 807597 blue dye medicatio n rash mild low 09/15/2023 Arielle Chavez LPN [place], [place] [facility] 4 16:47:57 712486 wheat gluten extract food swelling Not available high 09/15/20232021 02375 81 RxNorm unrec ogniz ed react ion (text : Stoma ch upset , code: 92173 9005) (from exter [facility] sourc e) Tiffani Alberto [place] null, [place] - [facility] 5 12:07:18 686192 latex environme nt,medica tion rash Not available high 09/15/20232010 29155 91 RxNorm Tiffani Alberto [place], [place] - [facility] 5 12:07:22 663371 zinc environme nt,medica tion rash Not available high 09/15/20232008 34105 RxNorm Tiffani Alberto [place] null, [place] - [facility] 5 12:07:35 015463 bupivacai ne medicatio n Not available Not available unabletoasse 09/15/2023 1815 RxNorm Arielle Chavez LPN null, [place] - [facility] 4 16:49:40 491537 lidocaine medicatio n Not available Not available unabletoasse 09/15/2023 6387 RxNorm Arielle Chavez LPN [place], [place] - [facility] 4 16:49:54 750864 dexametha sone medicatio n Not available Not available unabletoasse 09/15/2023 3264 RxNorm Arielle Chavez LPN [place], [place] - [facility] 4 16:50:12 385770 shellfish derived food,medi cation Not available Not available [facility] 09/15/2023 ELLA Roy, ASM[place] - [facility] 4 16:50:24 703507 triamcino lone medicatio n Not available Not available [facility] 09/15/2023 60502 RxNorm ELLA Roy, [place] - [facility] 4 16:50:40 396800 nickel environme nt Not available Not available Not available 10/01/2023 78063 29 RxNorm Heaters, [place] dave, [place] - [facility] 4 14:23:27 548020 Duocaine medicatio n Not available Not available Not available 06/28/20242023 49958 9 RxNorm unrec ogniz ed react ion (text : Glenroy bolton, code: 32713 5006) (from ext nal sourc e) Heaters, [place] dave, [place] - [facility] 5 12:07:14 912843 Shellfish (substanc e) food,medi cation Not available Not available Not available 06/28/20242021 23320 9006 SNOMED unrec ogniz ed react ion (text : Glenroy bolton, code: 85528 5006) (from ext nal sourc e) Heaters, [place] dave, [place] - [facility] 5 12:07:29 Medications Name [...] Updated DateTime 5 165.1 cm 44.1 kg/m2 172982. 33 g 99 % 74 /min 132/84 mm[Hg] Javier Raman [place] - [facility] 5 11:51:58 Social History Question Answer Notes LastModified by Organizat ion Details LastModified Time Tobacco Smoking Status Never Smoker TRAMAINE Kinsey, [place] - [place] 09/17/2023 16:38:11 What Is Your Level Of [...] Skin Problems N Anemia N Heart Attack ([place]) N Diabetes N Seizures/Epilepsy N Have you [...] virus, trivalent, preservative 3 completed Not Available [facility] 12/29/2024 11:32:40 Influenza, split virus, trivalent, PF 6 completed Not Available [facility] 12/29/2024 11:32:40 Influenza, split virus, quadrivalent, PF 7 completed Not Available [facility] 12/29/2024 11:32:40 Past Encounters Encounter ID Performer Location Encounter Start Date Encounter Closed Date Diagnosis/Indication Diagnosis SNOMED-CT Code Diagnosis ICD10 Code Diagnosis IMO Codes Diagnosis Note [id number] Tony Hudson, DO [facility] e - [place] [address] [place] [address] 12/29/2024 11:28:53 12/30/2024 08:41:36 Chronic neck pain 4480646851 107 M54.2 G89.29 419818 Had surgery and healing well, has appt in Oct Migraine 18949387 G43.90 9 13838 Hydration, meds as discussed, call for s/s as discussed History of cervical spine fusion 8063918173 101 Z98.1 now doing fine, using neurontin but we are trying to decrease dosage and going to PT and chiropract or Bilateral carpal tunnel syndrome 9468318750 2722573 G56.03 456607 had surgery and oding much better Bilateral chronic pain of upper limbs 3352976596 1418266 M25.511 M25.512 G89.29 77911753 x-rays ordered and consult to ortho Adult heal th examination 931892403 Z00.00 555484 Healthy diet and exercise, HCM as discussed Obese class III 62985791 5 E66.813 E66.3 2645389923 Vitamin D deficiency 347 79459 E55.9 14590 Health Concerns Section Related Observation LastModified by Organization Detai ls LastModified Time None Recorded Concern Status LastModified by Organization Details LastModified Time None Recorded Payers Encounter Date Sequence Insurance Name Policy Number Policy Gao Covered Member ID Gao Member ID Guarantor Name 12/29/2024 1 [employer] ([employer]) [id number] Manohar Noyola [id number] Alan Noyola Notes Date Note Type Note Provider Name and Address Organization Details Recorded Time 12/29/2024 text/html ROS as noted in the HPI Patient is in for routine follow up for the following medical conditions and annual ionrybau-arq-rqxvc r-Exercise:yes but needs more-colonoscopy: No FMHX-flu: Declined-Covid 19: none-HPV : did not-specialist:-ma mmogram: UTD [id number], 2 masses and pending DX [...] (HCC)-working on weight loss Javier Raman MA [facility], [place] - [facility] 12/29/2024 12:22:56 OBGyn Episode No OBEpisode recorded.
--- OUTSIDE RECORDS SUMMARY | 2025-01-12 12:27 | XMS_ITS | Clinical Summary ---
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 Gender Identity Not on file Sexual Orientation Not on file Plan of Treatment Health Maintenance Due Date Last Done Comments Annual Physical 1984 Hepatitis C 11/09/1999 DTaP, Tdap and Td Vaccines (1 - Tdap) 2000 Hepatitis B Vaccines (1 of 3 - 19+ 3-dose series) 2000 HPV Vaccines (1 - 3-dose SCDM series) 2008 Cervical Cancer Screening Pap with HPV Testing (Age 30 to 64) Every 5 Years 11/09/2011 Mammogram Screening 2021 COVID-19 Vaccine ( season) 2024 Influenza Adult (#1) 2024 11/25/2018, 11/19/2017, 11/14/2016, Additional history exists Cervical Cancer Screening Pap Smear (Age 30 to 64) Every 3 Years 08/21/2027 08/20/2024, 08/20/2024, 07/19/2022 Cervical Cancer Screening with HPV 08/21/2027 Hepatitis A Vaccines Aged Out No long [...] patient's age to complete this topic Insurance R Care Teams Brick Paver Relationship Specialty Start Date End Date Keyon Silva PA-C [address] [place] [id number] PCP - General PHYSICIAN MAGNETIC DOCTOR 01/26/24
--- OUTSIDE RECORDS SUMMARY | 2025-01-12 12:27 | XMS_ITS | Clinical Summary ---
Author Organization [facility] Address [address] [address] Care Team Providers Care Infectious Diseases Physician Name Role Phone Unavailable Primary Care Provider Unavailabl e Source Comments [facility],non-owned Affiliates and Associated Physician Practices is amultiple site organization consisting of ambulatory clinics and hospital sitesin [place], [place], [place] and [place]. This disclosure is being madepursuant to the Care Everywhere program and may not contain all information available regarding this patient. 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 Gender Identity Not on file Sexual Orientation Not on file Last Filed Vital Signs Vital Sign Reading Time Taken Comments Blood Pressure 126/80 01/02/2019 11:37 AM MAINTENANCE SUPERVISOR ELECTRICAL Pulse 97 01/02/2019 11:37 AM MAINTENANCE SUPERVISOR ELECTRICAL Temperature 37.1 C (98.7 F) 01/02/2019 11:37 AM MAINTENANCE SUPERVISOR ELECTRICAL Respiratory Rate 16 01/02/2019 11:37 AM MAINTENANCE SUPERVISOR ELECTRICAL Oxygen Saturation 96% 01/02/2019 11:37 AM MAINTENANCE SUPERVISOR ELECTRICAL Inhaled Oxygen Concentration - - Weight 108.9 kg (240 lb) 01/02/2019 11:37 AM MAINTENANCE SUPERVISOR ELECTRICAL Height 167.6 cm (5' 6) 01/02/2019 11:37 AM MAINTENANCE SUPERVISOR ELECTRICAL Body Mass Index 38.74 01/02/2019 11:37 AM MAINTENANCE SUPERVISOR ELECTRICAL Plan of Treatment Health Maintenance Due Date Last Done Comments LIPID TESTING 1981 MAMMOGRAM 1981 HIV SCREENING 1996 HEPATITIS C SCREENING 11/04/1999 DTAP/TDAP/TD VACCINES (1 - Tdap) 2000 HEPATITIS B VACCINE (1 of 3 - 19+ 3-dose series) 2000 Cervical Cancer Screening 2002 PAP SMEAR 2002 HPV VACCINE (1 - 3-dose SCDM series) 2008 PAP with HPV 11/09/2011 DEPRESSION SCREENING 02/11/2024 COVID-19 VACCINE (1 - 2024-2 6 season) 2024 INFLUENZA VACCINE (#1) 2024 11/19/2017 [...] patient's age to complete this topic Insurance [facility] SELF PAY NO INSURANCE Member Subscriber Plan / Payer (Ef fective for All Dates) Name:Alan Chapin Member ID:Not on file Relation to Subscriber:Not on file Name:ALAN CHAPIN Subscriber ID:Not on file (Home) Address: [address] [place] [id number] Payer ID:Not on file Group ID:Not on file Type:Self Pay Address: [place], [place]
--- OUTSIDE RECORDS SUMMARY | 2025-01-12 12:27 | XMS_ITS | Data Portability ---
Author Organization [facility] [employer] Address [address] [place] [address] Care Team Providers Care Lehr Tender Name Role Phone RENZO CAMACHO Primary Care Provider Assessment Encounter Date Assessment Date Assessment LastModified by Organization Details LastModified Time 08/20/2024 08/20/2024 Annual gynecological exam performed. Patient will come back in a year unless there are new symptoms. [email or web address] Not available 08/20/2024 09:46:58 Plan of Treatment Reminders Order Date Submit Date Provider Last Modified By Organization Details Last Modified Time Details Appointments None recorded. Lab pap, IG + HR HPV - HPV regardless but if HPV is positive need subtyping 16,18/45 add gc/ct/trich 2024 025 [facility] (Lab), [address] [place], [address], 5 16:21:00 Referral None recorded. Procedures None recorded. Surgeries None recorded. Imaging MAMMO, screening, digital, bilateral 2024 025 [email or web address] [facility], [address], [place], [address], 5 12:03:02 US, pelvis 2022 023 [email or web address] [facility], [address], [address], [place], [address], 3 22:05:35 US, transvagina l 2022 023 [email or web address] [facility], [address], [place], [address], 3 22:05:35 Medication Orders None recorded. 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 Elect trevor julian eneida d by [...] mary phelan nted. Not Available [facility] (Lab) [address] , [place], [address], 08/24/2024 16:21:00 08/21/19 25 08/20/2024 CT/GC AND TRICH OMONA S VAGIN JOHANNA (RRNA ), THINP REP VIAL CT/GC and trichomonas vaginalis (rrna), thinprep SEE RESULT S BELOW negati ve CHLAM YDIA TRACH OMATI S, PCR: Negat abel NEISS ERIA GONOR RHOEA E, PCR: Negat abel TRICH OMONA S VAGIN JOHANNA RIBOS OMAL RNA (RRNA ): Negat abel Not Available [facility] (Lab) [address] , [place], [address], 08/24/2024 16:21:01 07/27/19 23 07/26/2022 US, pelvi s No observ ation record ed. [email or web address] [facility] [address], [place], [address], 07/26/2022 11:03:28 07/27/19 23 07/26/2022 US, trans vagin al No observ ation record ed. [email or web address] [facility] [address], [place], [address], 07/26/2022 11:03:19 07/27/19 23 07/26/2022 US, pelvi s No observ ation record ed. [email or web address] [address] [address], [place], [address], 08/01/2022 16:30:48 02/11/19 24 02/11/2023 MAMMO , scree al, bilat eral No observ ation record ed. [facility] [address], [place], [address], 02/12/2023 20:52:27 06/13/19 24 06/13/2023 MRI, cervi trent spine , w/o contr ast No observ ation record ed. [email or web address] [facility] [address], [place], [address], 07/08/2023 15:10:58 06/13/19 24 06/13/2023 MRI, cervi trent spine , w/o contr ast No observ ation record ed. [facility] [address], [place], [address], 07/08/2023 15:10:32 12/02/19 25 12/01/2024 MAMMO , jenny melendez, digit al, bilat eral No observ ation record ed. [address], [place], [address], 12/02/2024 10:04:05 12/03/19 25 12/01/2024 MAMMO , jenny melendez, digit al, bilat eral No observ ation record ed. [address], [place], [address], 12/02/2024 10:04:10 12/03/19 25 12/01/2024 MAMMO , scree al, digit al, bilat eral No observ ation record ed. [address] [facility] [address] [address], [place], [address], 12/02/2024 10:04:15 Result Notes None recorded. Problems Name Problem SNOMED Code Status Onset Date Resolution Date Notes Provider Name and Address Organization Details Recorded Time Specializ ed medical examinati on Completed 201012/04/2011 Gynecolog ical Examinati on;Record ed Elsewhere : No Locati on: [facility] So urce: EHR Chron ic: N Practic e ID: [id number] Bill able Time: 02:00:00 PM Sulma acosta [facility] 2 09:43:30 Cytologic finding Completed 201012/04/2011 Nonspecif ic abnormal papanicol aou smear of cervix, unsatisfa ctory smear;Rec orded Elsewhere : No Locati on: [facility] So urce: EHR Chron ic: N Practic e ID: [id number] Bill able Time: 09:45:00 AM Not Available [facility] 0 16:00:58 Problem Notes None recorded. Procedures Surgical History Date Name Laterality Status Provider Name and Address Organization Details Recorded Time 08/10/19 23 Removal of Foreign Body completed Shanice Fenton, [place]- [address], [place], [address], [facility] 08/09/2022 12:31:01 07/20/19 23 Date of Last Pap Smear completed Rebecca Barton [facility] 08/09/2022 10:11:33 02/10/19 13 termination of completed Sulma Chávez [facility] 11/05/2021 14:29:00 02/10/19 08 biopsy of liver completed Sulma Chávez [facility] 11/05/2021 14:28:46 Imaging Results None recorded. Procedure Notes None recorded. Medical Equipment None Reported. Allergies Allergen ID Allergen Name Allergen Category Reaction Reaction Severity Criticality Documentation Date Start Date Code Code System Note Provider Name and Address Organization Details Recorded Time 16033 latex environme nt,medica tion Not available Not available Not available 01/28/2020 17781 91 RxNorm Comme nt: [facility]; [facility] Available [facility] 0 14:20:38 60153 zinc environme nt,medica tion Not available Not available Not available 01/28/2020 45240 RxNorm Comme nt: [facility]; Not Available [facility] 0 14:20:38 17156 shellfish derived food,medi cation Not available Not available Not available 06/29/2021 Melinda Soni [facility] 2 16:13:05 24713 wheat gluten extract food hives Not available high 07/19/2022 27706 81 RxNorm Shanice hoskins [facility] [address], [place], [address] , [facility] 3 13:54:44 98750 Milk (substanc e) food,medi cation vomiting severe high 07/19/2022 20707 002 SNOMED Shanice hoskins [facility] [address], [place], [address] , [facility] 3 13:55:04 Medications Name Sig Start [...] mg tablet,ex tended release 07/19 completed Prescrib grupo [place] e: Yes Loca tion: [facility] odify By: [email or web address] z Encoun ter DateTime [...] Prescrib ed Elsewher e: No Locat ion: [facility] odify By: nemo brito DateTime : 11/06/19 08:45:27 AM Not Available Not Available Not [...] Prescrib ed Elsewher e: Yes Loca tion: [facility] odify By: toñito pena DateTime : 11/08/19 11 09:51:22 PM Not Available Not Available Not Available Vitals Date Recorded Body height Body mass index (BMI) Body weight Systolic And Diastolic Provider Name and Address Organization Details Last Updated DateTime 02/12/2023 167.64 cm 36.2 kg/m2 071794.69 g 134/80 mm[Hg] Melinda Soni [facility] 02/12/2023 17:26:04 Date Recorded Body height Body mass index (BMI) Body weight Systolic And Diastolic Provider Name and Address Organization Details Last Updated DateTime 08/09/2022 167.64 cm 35.5 kg/m2 02854.32 g 120/74 mm[Hg] Rebecca Barton [facility] 08/09/2022 10:10:13 Date Recorded Body height Body mass index (BMI) Body weight Systolic And Diastolic Provider Name and Address Organization Details Last Updated DateTime 08/20/2024 167.64 cm 45.8 kg/m2 407752.23 g 133/82 mm[Hg] Natalia Post [facility] 08/20/2024 10:03:15 Date Recorded Body height Body mass index (BMI) Body weight Systolic And Diastolic Provider Name and Address Organization Details Last Updated DateTime 01/21/2023 167.64 cm 36.2 kg/m2 553597.69 g 142/79 mm[Hg] Sulma Chávez [facility] 01/21/2023 17:14:44 Social History Question Answer Notes LastModified by Organizat ion Details LastModified Time Tobacco Smoking Status Former Smoker Natalia Post [facility] 02/12/2023 17:13:22 Do You Have An Advance Directive? No [email or web address] Information not available 07/16/2021 Are You Blind Or Do You Have Difficulty Seeing? No [email or web address] Information not available 07/16/2021 What Is Your Level Of Caffeine Consumption? Moderate Information not available 08/09/2022 How Much Tobacco Do You Chew? None Information not available 08/09/2022 In The 14 Days Before Symptom Onset, Have You Had Close Contact With A Laboratory-confir med COVID-19 While That Case Was Ill? No [email or web address] Information not available 07/16/2021 In The 14 Days Before Symptom Onset, Have You Had Close Contact With A Person Who Is Under Investigation For COVID-19 While That Person Was Ill? No [email or web address] Information not available 07/16/2021 Have You Been To An Area Known To Be High Risk For COVID-19? No [email or web address] Information not available 07/16/2021 Are You Deaf Or Do You Have Serious Difficulty Hearing? No [email or web address] Information not available 07/16/2021 What Type Of Diet Are You Following? GLUTENFREE [email or web address] Information not available 07/16/2021 What Is The Highest Grade Or Level Of School You Have Completed Or The Highest Degree You Have Received? [id number] Information not available 07/16/2021 Are There Any Guns Present In Your Home? No [email or web address] Information not available 07/16/2021 Do You Use Protection During Sex? No [email or web address] Information not available 07/16/2021 Do You Use Your Seat Belt Or Car Seat Routinely? Yes [email or web address] Information not available 07/16/2021 Do You Have Smoke And Carbon Monoxide Detectors In Your Home? Yes [email or web address] Information not available 07/16/2021 How Much Tobacco Do You Smoke? No [email or web address] Information not available 07/16/2021 Do You Use Sunscreen Routinely? Yes [email or web address] Information not available 07/16/2021 Has Tobacco Cessation Counseling Been Provided? No [email or web address] Information not available 02/12/2023 Have You Used IV Drugs? No [email or web address] Information not available 07/16/2021 Do You Have Difficulty Walking Or Climbing Stairs? No [email or web address] Information not available 02/12/2023 Sex: Unknown Functional Status Question Answer Note LastModified by Organizat ion Details LastModified Time Do you use any illicit or recreational drugs? No [email or web address] Information not available 07/16/2021 Do you or have you ever used any other forms of tobacco or nicotine? No [email or web address] Information not available 02/12/2023 What is your level of alcohol consumption? Occasional Information not available 08/09/2022 Are you able to walk independently without assistance or assistive devices? YESWOREST Information not available 07/16/2021 Are you able to care for yourself independently? 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 No [email or web address] Information not available 02/12/2023 What is your exercise level? Occasional [email or web address] Information not available 07/16/2021 Mental Status Question Answer Note LastModified by Organization D etails LastModified Time Do you feel stressed (tense, restless, nervous, or anxious, or unable to sleep at night)? [id number] Information not available 08/09/2022 Family History Relationship Description Onset Age of this Age Resolved Age Notes LastModified by Organization Details LastModified Time Father Diabetes mellitus [email or web address] Not available 01/21 17:15:14 Mother Diabetes mellitus Not available 01/21 17:15:14 Mother Hypoglycemia Not [...] ICD10 Code Diagnosis IMO Codes Diagnosis Note [id number] Tucker Jones MD [facility] [address] [address] 06/29/2021 15:53:25 06/29/2021 17:49:32 Gynecologic examination 12828457 Z01.419 This patient is here for her [...] na Cholestero l - Pap - today [id number] Shanice Fenton [facility] [address] [address] 07/19/2022 13:33:08 07/19/2022 14:13:17 Gynecologic examination 08217423 Z01.419 Suggested Calcium with Vitamin D 1200-1500m g daily. Patient advised to get an annual flu shot in the fall and she could obtain at [facility] or [facility] clinic. Also to obtain TDap vaccinatio [...] PCP per pt 2022 Screening mammography 24 778411 Z12.31 Menorrhagia 775597284 N9 2.0 Heavy menses all her life.??Cer vical polyp on exam???Bar robin flush with ext OS but cervix friable with this present. Will update US [id number] Tucker Jones MD [facility] [address] [address] 07/03/2021 13:34:32 07/03/2021 14:33:30 Menorrhagia 962854911 N92.0 [id number] Tucker Jones MD [facility] [address] [address] 07/16/2021 09:27:30 07/16/2021 10:46:32 Menorrhagia 412352481 N92.0 Dysmenorrhea 734779516 N 94.6 this patient is a 40-year-ol [...] She will contact us to schedule that. [id number] Tucker Jones MD [facility] [address] [address] 07/26/2022 08:59:49 07/26/2022 09:45:43 Excessive and frequent menstruation 873720916 N92.0 [id number] Shanice Fenton [facility] [address] [address] 08/09/2022 10:01:13 08/09/2022 12:40:25 Menorrhagia 368431436 N92.0 TVUS reviewed.F ibroids.De clines hormonal options & non-hormon al option of lysteda for heavy menses.Int erested in endometria l ablation.W ill need MD consult to ensure this is a good option for her based on US findings.A ll lab work wnlH/O given for home review on endo-ablat ionsWill call to schedule MD consult. Time spent in visit is a total of 15 mins with at least 50% of visit consisting of counseling and review of plan of care NOT including time spent on procedure. Polyp at cervical os 248 800918 N84.1 See procedure notes. [id number] Tucker Jones MD [facility] [address] [address] 01/21/2023 17:02:37 01/21/2023 18:32:26 Breast lump 24219746 N63.0 This patient is a 42-year-ol d [...] ce. More than 50% was counseling . [id number] Tucker Jones MD [facility] [address] [address] 02/12/2023 17:11:32 02/13/2023 09:03:47 Mass of chest wall 627499633 R22.2 42-year-ol d female with a benign-yadi [...] ce. More than 50% was counseling . [id number] GIULIANO Khan [facility] [address] [address] 08/20/2024 09:34:10 08/20/2024 11:55:29 Gynecologic examination 35178006 Z01.734 [id number] [facility] - declinedMe p - done todaySTI screen - gc/ct/tric [...] questions have been answered. Screening mammography 24 129737 Z12.31 [id number] Venereal d isease screening 758520243 Z11.3 17299 Health Concerns Section Related Observation LastModified by Organization Detai ls LastModified Time None Recorded Concern Status LastModified by Organization Details LastModified Time None Recorded Advance Directives Directive N: Payers Insurance Date Sequence Insurance Name Policy Number Policy Gao Covered Member ID Gao Member ID Guarantor Name 07/28/2024 1 [facility] (PPO[facility] [id number] Manohar Noyola [id number] Alan Noyola 08/23/2024 1 [facility] [id number] Manohar Noyola [id number] Alan Noyola Notes Date Note Type Note Provider Name and Address Organization Details Recorded Time 3 text/html ROS as noted in the HPI Here today for review of US & removal of ext cervical polyp. Shanice Fenton, [facility]- [address], [place], [address], [place] - [facility] [employer] 08/09/2022 12:34:26 3 text/html This patient is a 42-year-old female [...] maybe slightly flocculent. We spent 20 minutes fvdw-fm-vfve. More than 50% was counseling. Tucker Jones MD [address], [place], [address], [facility] 01/21/2023 18:11:55 4 text/html 42-year-old female with a benign-appearing mass of the chest [...] Discussed treatment. Discussed referral. Spent 20 minutes rclh-mz-pstz. More than 50% was counseling. Tcuker Jones MD [address], [place], [address], [facility] 02/12/2023 17:40:29 5 text/html Annual GYNReported by PatientGenitourinary symptomsFor menstrual cycle, patient reportsnormal menses. For urinary symptoms, patient reportsno hematuriaandno incontinence. For vulva, patient reportsno genital lesion. For vagina, patient reportsnormal vaginal discharge.Breast symptomsFor breast, patient reportsno breast pain,no breast lump, andno nipple discharge.ContraceptionFo r current contraception, patient reportssatisfied with current contraception(withdrawal) .Endocrine symptomsFor sexual complaints, patient reportsno sexual complaints,no pain during intercourse, andnormal libido. For menopausal symptoms, patient reportsno menopausal symptomsandnormal vaginal lubrication.Psychological symptomsFor psychological symptoms, patient reportsno depression,no anxiety, andno pmdd.Preventative measuresFor preventive measures, patient reportsencourage self breast examination,encourage regular exercise,encourage no tobacco use, andencourage regular mammograms starting age 40.43yo wweBC - withdrawallast pap 2022 : nilm, HPV (-)no h/o abnormal papslast mammogram 02/2023 GIULIANO Khan [address], [place], [address], [facility] [employer] 08/20/2024 11:32:29 OBGyn Episode Ob Episode Information Episode Created Date Number of Fetuses Patient Bloodtype Patient rh Status Prepregnancy Weight lbs Domestic Partner Domestic Partner Phone Father Name Founder And President Status 06/30/19 22 1 CLOSED Fetus Data First Name Last Name Admitted to NICU Weight (g) Sex Living Outcome Pediatric Complications Fetus ID Race Codes Race Delivery Type 3345.24 1 F Full Term [id number] Vaginal Delivery Kishor Calculation Initial Kishor Date [...] Domestic Partner Domestic Partner Phone Father Name Founder And President Status 06/30/19 22 1 CLOSED Fetus Data First Name Last Name Admitted to NICU Weight (g) Sex Living Outcome Pediatric Complications Fetus ID Race Codes Race Delivery Type , Spontane ous [id number] Kishor Calculation Initial Kishor Date Initial Exam [...]
== END 2025-01-12 10:51 | disposition home or self-care (01) ==
LOC: ANHFOHIMG 10:51
PROVIDERS: PCP Physician Assistant; Visit Provider Nurse Practitioner
DX: N60.11 Diffuse cystic mastopathy of right breast (principal); R92.2 Inconclusive mammogram
CPT/HCPCS: 76642; 77061; 77065; G0279

== ENCOUNTER 2025-01-18 03:30 | Day surgery (SDC) | payer OTHER, SELFPAY ==
[2025-01-13 10:32] VITALS: BMI 42.2
--- NOTE | 2025-01-13 10:37 | PC.NURSE ---
[facility] has started construction of its new state of the art ER which will open Spring 2026. With this, we anticipate parking may be a challenge for some our surgical patients and families. Parking spaces are limited but are available for all Surgical, obstetrics, and ER patients sharing this lot. If you arrive and find you are having a hard time finding a parking space, please note that we understand the challenges, please drive around the hospital and park near Hospital Entrance 1. When you enter this entrance, you can ask a volunteer to direct or take you back to the surgical waiting area to check in. We appreciate everyone?s understanding of these expected challenges while we build for your future. Report to the Outpatient Waiting Room, entrance under the green pavilion located off [facility], at time _1100_ on date _01/18/25. Planned Procedure Time: 1300.? Time changes happen often and if your time is changed the preop area will call you the afternoon before. - You and your visitor will be asked to self-screen and do not enter if you have any COVID symptoms. Please call surgeon if you need to reschedule. - A mask is optional within the hospital at this time. Patients may have clear liquids (water, carbonated beverages, clear teas, apple juice) until 3 hours prior to surgery with a maximum of 20 ounces. - No food from midnight until time of surgery and no smoking, or chewing tobacco (or any form of nicotine). No chewing gum, candy or mints. Take only the following medications with a SIP of water on the morning of surgery: NONE DO NOT STOP ANY OF YOUR OTHER PRESCRIPTION MEDICATIONS PRIOR TO SURGERY EXCEPT THE FOLLOWING Hold all vitamins and supplements for 3 days per anesthesiologist. Medications to discontinue per physician PT STATES STOPPING IBUPROFEN AND FLEXERIL PER INSTRUCTION FROM Date to take last dose Please no make-up, nail [place] island[place], hairspray, perfume, deodorant, or body powder the day of surgery.? No jewelry (including any body piercings) or valuables the day of surgery, leave them at home.? Please take a shower or bath the night before, or the morning of, surgery with an antibacterial soap.? Wear comfortable, loose fitting clothing.? Children are encouraged to wear pajamas. - Jewelry must be removed prior to entering the operating room.? Rings and piercings that are not removed may be cut off. - The hospital will not accept responsibility for valuables.? - Please leave all valuables, including medications, at home the day of surgery. If you are going home after surgery, a licensed otr flatbed company truck driver must drive you home.? - NO public transportation without another adult if you receive anesthesia. - We recommend that an adult stay with you for 24 hours following discharge. - We also recommend that you do not drive, make important decision, drink alcoholic beverages, or take any drugs that were not prescribed by your health care provider for at least 24 hours after your discharge time. For Pediatric surgeries, we recommend two adults accompany the child home. Follow any additional instructions given to you from your surgeon. Telephone instructions given to _PATIENT_and asked if any additional questions and then verbalized understanding. Patient advised to call surgeon office or pre surgery nurse liaison [phone] if any additional questions.
[2025-01-18] VITALS (9 sets, daily range): BP systolic 123–143; BP diastolic 55–75; PULSE 74–88; RESP 12–20; TEMP 36.1–36.5; O2SAT 98–100
--- NOTE | 2025-01-18 07:28 | WPDHPUPDATE1 ---
History and Physical Update Update Date/Time: 01/18/25 07:28 History and Physical has been reviewed, including an updated exam of the patient. There are NO changes in the patient's condition. Risks, benefits, and alternatives have been discussed and questions answered. Patient agrees to proceed with procedure.
[2025-01-18] MEDS: LACTATED RINGERS 1,000 ML 30 ML IV CONT ×2 (11:25→14:45)
[2025-01-18] MEDS: KETOROLAC 15 MG/ML VIAL (*BKC) IV PUSH (11:25)
--- NOTE | 2025-01-18 12:01 | P.PNAN_ITS ---
Anes - Initial Pre Proc Eval Procedure: Operation Date: 01/18/25 13:00 Proposed Procedures p Right Shoulder Arthroscopic Subacromial Decompression - Chris White MD Date/Time: 01/18/25 12:01 Surgeon: Chris White MD Pre Op Diagnosis: impingement syndrome right shoulder Patient Data Age: 44 Gender: F Height: 1.65 m Weight: 115 kg Allergies Allergy/AdvReac Type Severity Reaction Status Date / Time nickel Allergy Severe Swelling Verified 01/18/25 12:15 zinc Allergy Mild vomiting Verified 01/18/25 12:15 Corticosteroids Allergy Unknown Unknown Verified 01/18/25 12:15 (Glucocorticoids) latex AdvReac Mild Rash Verified 01/18/25 12:15 gluten AdvReac Unknown Unknown Verified 01/18/25 12:15 Milk Containing Products AdvReac Unknown Unknown Verified 01/18/25 12:15 (Dairy) shellfish derived AdvReac Unknown Unknown Verified 01/18/25 12:15 cortizone shot AdvReac Severe Numbness Uncoded 11/08/24 08:55 Home Medications ?Medication ?Instructions ?Recorded ?Confirmed ?Type albuterol sulfate 90 mcg/actuation 2 puff inhalation . Q4 hours PRN 05/01/24 01/13/25 Rx aerosol inhaler (Ventolin HFA) cough #18 grams cyclobenzaprine 10 mg tablet 10 mg PO HS 05/01/2406/04 History ibuprofen 800 mg tablet 800 mg PO TID 11/08/2401/13 History Patient hx anesthesia problems: none Family hx anesthesia problems: none Results Review: All pre-operative results and documents have been reviewed as part of the pre- operative evaluation. 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 Family History Family History Father Diabetes mellitus Mother Diabetes mellitus Other Family history of Alzheimer's disease Social History Social History Social History: Caffeine-tea/coffee Smoking status: Never smoker Alcohol intake: current Alcohol use details: Rarely Substance use: never Substance use type: does not use Lack of Transportation: No Lack of Food: Never True Current Housing: I Have Housing Concerned About Future Housing: No Difficulty Paying Gas/Electric Bills: No Difficulty Paying for Meds: No Currently Unemployed: No Education: Bachelor's Degree Difficulty w/ Childcare or Family Care: No Living arrangements: with family Spiritual care concerns: No Anes - Eval Final PreProcedure Day of Procedure 01/18/25 12:01 Patient weight: morbidly obese Heart: regular rate and rhythm Lungs: clear to auscultation Airway: Mallampati scale class II Neurological: alert and oriented Last oral intake: >/= 8 hours ASA classification: III Emergent: no Anesthetic plan: proceed Anesthesia type and monitoring: general ETT and standard monitoring Results Review: All pre-operative results and documents have been reviewed as part of the pre- operative evaluation. Informed Consent: The patient's anesthetic plan and its attendant risks and benefits were discussed with the patient/family/POA. Questions were solicited and answers provided to the satisfaction of the patient/family/POA.
[2025-01-18 12:21] LABS: BEDSIDEPREGUCG Negative (Negative)
[2025-01-18] MEDS: ceFAZolin 2 GM in SODIUM CHLORIDE 0.9% IV 50 ML 100 ML IVPB (13:05)
[2025-01-18] MEDS: EPINEPHrine HCL INJ 1 MG/ML AMPUL IRRIGATION (13:15)
[2025-01-18] MEDS: BUPIVACAINE/EPINEPHRINE 0.5% 50 ML VIAL 30 ML INFILTRATE (13:16)
--- NOTE | 2025-01-18 16:00 | W.PM.PROC2 ---
Procedure Note - Detailed Date of Procedure 01/18/25 Pre-op Diagnosis Impingement syndrome right shoulder Post-op Diagnosis Same Procedure Performed Right shoulder arthroscopic debridement with subacromial decompression Surgeon Chris White MD Anesthesia General Findings Low grade partial tearing of the articular and bursal supraspinatus, 15% total. Significant thickening of bursal tissue with hyperemia of the cuff tendon. Minor split tear of the intraarticular biceps, without inflammatory changes or labral disease. Intact articular cartilage. Description of Procedure Preoperative antibiotics were given. The patient was brought to the operating room. Careful positioning in the beach chair was accomplished. The head neck were carefully positioned. A small bump was placed under the shoulder. The shoulder was prepped and draped in the usual sterile fashion. Examination under anesthesia performed; no abnormal findings. Standard posterior and anterior arthroscopic portals were established. The articular cartilage was normal. The supraspinatus showed mild less than 10% articular side fraying which was debrided. The tissue quality was good with good early bleeding from the debrided tissue bed. Biceps tendon showed a small split area of without any other damage or degeneration of the tendon. It was pulled into the articular joint space and observed. There was no hyperemia or further damage seen. The subscapularis was normal. The posterior rotator cuff was healthy. Attention was turned to the subacromial space. The bursa was very thickened and hyperemic. There did appear to be impingement on the anterolateral acromion. A complete bursectomy was performed. There was fraying on the superior bursal side of the cuff 5% thickness. Gentle debridement was performed. An accessory lateral portal was created. The acromion was clearly visualized. The undersurface of the acromion was cleared with a radiofrequency probe. The prominent anterolateral bone was removed with the arthroscopic bur. The coracoacromial ligament was released. Loose bone fragments were carefully irrigated from the joint. The arthroscopic instruments were removed. The wounds were closed with interrupted 4-0 Monocryl suture followed by Steri-Strips. A sterile dressing was applied with a sling. The patient was extubated and brought to the recovery room in stable condition. There were no complications. Estimated Blood Loss 10 Drains No Packing No Pathology None sent Complications No immediate complications Condition Stable Disposition PACU [facility] Billing Surgery - Charge Forward: Surgery Billing
[2025-01-18] MEDS: ONDANSETRON INJ 4 MG/2 ML VIAL IV PUSH (16:04)
[2025-01-18] MEDS: oxyCODONE HCL (*CRX) 2.5 MG TAB IR 5 MG PO (16:15)
== END 2025-01-18 17:02 | disposition home or self-care (01) ==
PROVIDERS: PCP Physician Assistant; Visit Provider Orthopaedic Surgery
PROC: (CPT 29805; principal; 2025-01-18 13:00)
DX: M75.41 Impingement syndrome of right shoulder (principal); M75.81 Other shoulder lesions, right shoulder; M75.111 Incomplete rotator cuff tear or rupture of right shoulder, not specified as traumatic; M75.51 Bursitis of right shoulder; E66.01 Morbid (severe) obesity due to excess calories; Z68.41 Body mass index [BMI] 40.0-44.9, adult; Z79.51 Long term (current) use of inhaled steroids; Z79.1 Long term (current) use of non-steroidal anti-inflammatories (NSAID); Z98.890 Other specified postprocedural states; Z98.1 Arthrodesis status
CPT/HCPCS: 29822; J0690; A4565; A9270; J0166; J1885; J2250; J2371; J2405; J2704; J3010; J7120